=== PATIENT | male | born 1940 | race Caucasian/White ===

== ENCOUNTER 2019-01-27 08:24 | Emergency (ER) | payer MEDICARE, SELFPAY ==
[2019-01-27 08:32] VITALS: BP 157/53; PULSE 88; RESP 18; TEMP 37; O2SAT 97
--- NOTE | 2019-01-27 08:54 | ED.GENADUL_ITS ---
Discharge Plan Disposition Patient Disposition: HOME Discharge Details Chief Complaint: SOB Clinical Impression: Pulmonary cavitary lesion Primary Care Provider: Jeremy Sellers ED Provider: Mohit Foster Home Meds and New Rx's Prescriptions: New levofloxacin [Levaquin] 750 mg tablet 750 mg PO DAILY Qty: 3 RF: 0 Continued diltiazem HCl 240 MG capsule,extended release 24 hr 240 mg PO DAILY Qty: 90 RF: 3 allopurinol 300 MG tablet 300 mg PO DAILY Qty: 90 RF: 3 lovastatin 20 MG tablet 20 mg PO DAILY Qty: 90 RF: 3 levothyroxine [Synthroid] 75 mcg Tablet See Rx Instructions .ROUTE .COMPLEX RF: 0 Discharge Instructions Additional Instructions: CT imaging of your chest revealed a cavitary lesion in the superior segment of the left lower lobe with mild surrounding airspace disease. Differential roberta gnosis includes neoplasm, cavitary pneumonia, granulomatous disease, among others. Radiology recommends PET CT or tissue diagnosis for further assessment. Please take the full course of antibiotic as prescribed. Levaquin was initiated today in the emerge department. Your next dose is tomorrow -this dose was provided to you because pharmacies are closed tomorrow. Continue prescription the following day as prescribed for a total of 5 days. A PPD tuberculosis test was placed today. This test needs to be interpreted by a healthcare provider in the next 48 to 72 hours. Please contact your primary care physician to arrange follow-up. Call on Monday to arrange timely follow-up within the next 48 to 72 hours for reassessment and to have TB testing interpreted. Return to the ER for any worsening or new concerning symptoms. Discharge Data Discharge Date/Time-TO BE ENTERED AT DEPARTURE: 01/27/19 13:22 Medical Decision Making 10:00--78-year-old male with history of chronic kidney disease, hypertension, hyperlipidemia, here with cough and intermittent fever over the past 4 days. Patient is saturating well in no respiratory distress. Concern for pneumonia. Chest x-ray was reviewed and interpreted by radiology: IMPRESSION: Interval development of a nodular somewhat spiculated lesion in the left midlung field with central lucency. Differential diagnosis includes necrotic neoplasm, cavitary pneumonia, granulomatous disease, among others. Plan will be to proceed with CT of the chest. Labs pending to assess renal function. -- Labs reviewed - nondiagnostic. CT chest interpreted by radiology: IMPRESSION: Cavitary lesion in the superior segment of the left lower lobe with mild surrounding air space disease. Differential diagnosis includes neoplasm, cavitary pneumonia, granulomatous disease, among others. Consider PET CT or tissue diagnosis for further assessment All results discussed with patient. Ddx includes PNA vs malignancy vs TD. PPD placed. Plan to start levaquin. Patient to follow-up with PCP. Disposition decision was made weighing the risks and benefits of hospitalization versus outpatient treatment, the risk for further decompensation, and the patient's wishes. The patient was stable and requested discharge. Prior to discharge, my usual and customary return precautions were reviewed with the patient - this included follow-up instructions and reason to return to the emergency department if condition worsens, does not improve as expected, or other new concerns arise. HPI General Mode of arrival: ambulatory . Date/Time Provider Initiated Documentation: 01/27/19 08:47 . Limitations to Documentation: no limitations . Information obtained by: patient . HPI Narrative: 78-year-old male with history of chronic kidney insufficiency, hypertension, hyperlipidemia, here with chief complaint of cough. Patient notes he has had cough over the past 4 days. He said associated fever intermittently as well as intermittent shortness of breath. Patient also notes associated generalized body aches. Cough is been severe, keeping him up at night, without modifiers. Cough nonproductive. No associated chest pain. No leg swelling. Related Data Home Medications Medication Instructions Recorded Confirmed allopurinol 300 mg PO DAILY #90 tablet 03/29/14 01/27/19 diltiazem HCl 240 mg PO DAILY #90 tab 03/29/14 01/27/19 lovastatin 20 mg PO DAILY #90 tablet 03/29/14 01/27/19 levofloxacin [Levaquin] 750 mg PO DAILY #3 tab 01/27/19 levothyroxine [Synthroid] See Rx Instructions .ROUTE .COMPLEX 01/27/19 01/27/19 Previous Rx's Medication Instructions Recorded allopurinol 300 mg PO DAILY #90 tablet 03/29/14 diltiazem HCl 240 mg PO DAILY #90 tab 03/29/14 lovastatin 20 mg PO DAILY #90 tablet 03/29/14 levofloxacin [Levaquin] 750 mg PO DAILY #3 tab 01/27/19 Allergies Allergy/AdvReac Type Severity Reaction Status Date / Time No Known Allergies Allergy Unverified 07/14/17 23:37 General Stated Complaint: SOB COREY: 3 Review of Systems Review of Systems All systems reviewed & are unremarkable except as noted in HPI and below PFSH Social History Smoking/Tobacco Use Status: Never Alcohol Intake: never Drug use: Never Substance use type: does not use Do you feel safe at home: Yes Do you feel safe in your relationship?: Yes Exam Const General: cooperative and no acute distress HENMT Head: normocephalic Mouth: moist mucous membranes Eyes Conjunctivae: normal conjunctivae Sclera: normal sclerae Neck Neck: trachea midline, supple and no JVD Resp Auscultation: rales bilaterally at the base, no rhonchi and no wheezes Cardio Jugular venous pressure: no JVD Rate: regular rate and not tachycardic Rhythm: regular rhythm GI Palpation: soft, not firm, no guarding, no masses, not rigid and nontender Skin General skin exam: no rashes or lesions noted Neuro General: alert, awake, oriented x3 and tone normal Extrem General: no calf tenderness and no edema Psych Appearance: grossly normal Mental Status: mental status grossly normal Speech and Movement: speech and movement normal Course Vital Signs Temperature 37.0 C 01/27/19 08:32 Pulse 88 01/27/19 08:32 Respiratory Rate 18 01/27/19 08:32 Blood Pressure 157/53 H 01/27/19 08:32 Pulse Oximetry 97 01/27/19 08:32 Temperature 37.0 C 01/27/19 08:32 Pulse 88 01/27/19 08:32 Respiratory Rate 18 01/27/19 08:32 Respiratory Effort Non-Labored 01/27/19 08:41 Respiratory Depth Normal 01/27/19 08:41 Respiratory Pattern Normal 01/27/19 08:41 Blood Pressure 157/53 H 01/27/19 08:32 Blood Pressure Position Supine 01/27/19 08:32 Pulse Oximetry 97 01/27/19 08:32 Oxygen Delivery Method Room Air 01/27/19 08:32 Oxygen Flow Rate 0 01/27/19 08:32
--- NOTE | 2019-01-27 09:20 | DI.RAD_ITS ---
SYMPTOMS/DIAGNOSIS: COUGH X 4 DAYS PA AND LATERAL CHEST: Comparison is made with March,. The heart size is normal. The aorta shows calcification. There is a cavitary lesion in the superior segment on the left lower lobe. The lungs are otherwise clear. No effusions are present. There are degenerative changes of the shoulder and thoracic spine. IMPRESSION: Cavitary lesion of the superior segment of the left lower lobe.
--- NOTE | 2019-01-27 09:58 | NUR.NOTE ---
pt resting in bed pending results Nursing Note:
--- NOTE | 2019-01-27 10:01 | DI.VRAD_ITS ---
EXAM: XR Chest, 2 Views EXAM DATE/TIME: 01/27/2019 8:54 AM CLINICAL HISTORY: 78 years old, male; Other: Cough 4 days TECHNIQUE: Imaging protocol: XR of the chest, 2 views. COMPARISON: CR CHEST 2 VIEWS PA,LAT 04/15/2014 6:42 AM FINDINGS: Lungs: There is a nodular somewhat spiculated lesion in the left midlung field which measures 2.9 cm x 2.6 cm and appears to demonstrate a central lucency. This is new since prior. Pleural space: No pleural effusion. No pneumothorax. Heart/Mediastinum: Paratracheal fullness also seen on prior. Diaphragm: Elevated right hemidiaphragm with eventration. Vasculature: Calcified thoracic aorta. Bones/joints: Degenerative changes in thoracic spine. IMPRESSION: Interval development of a nodular somewhat spiculated lesion in the left midlung field with central lucency. Differential diagnosis includes necrotic neoplasm, cavitary pneumonia, granulomatous disease, among others. Dictated and Authenticated by: Catherine Ragsdale MD. Ordering:NANCY Rueda MD
[2019-01-27 10:21] LABS: Abs Immature Grans 0.01 k/cumm (0.0-0.09); Absolute Basophil Count 0.03 k/cumm (0.0-0.2); Absolute Lymphocyte Count 1.19 k/cumm (1.2-3.4); Absolute Monocyte Count 0.77 k/cumm (0.11-0.7); Absolute Neutrophil Count 6.78 k/cumm (1.2-6.7); Basophils % 0.3; Eosinophils % 2.2; HCT 37.9 % (40.0-50.0); Immature Grans % 0.1; Lymphocytes % 13.3; Mean Corp. HGB Concentration 34.3 g/dL (32.0-36.0); Mean Corpuscular Hemoglobin 31.6 pg (27.0-33.0); Mean Platelet Volume 9.2 fL (8.0-11.0); Monocytes % 8.6; Neutrophils % 75.5; Platelet Count 280 x1000/uL (130-400); RBC 4.12 m/cumm (4.50-6.00); RBC Distribution Width 13.1 % (11.8-14.1); White Blood Cell Count 8.98 k/cumm (4.4-10.8)
[2019-01-27 10:37] LABS: ALT 22 U/L (16-63); AST 18 U/L (15-37); Albumin 3.4 g/dL (3.4-5.0); Alkaline Phosphatase 83 U/L (46-116); Anion Gap 11.5 mmol/L (3-11); BUN 26 mg/dL (7-18); Bilirubin, Total 0.8 mg/dL (0.2-1.0); CO2 25.5 mmol/L (21.0-32.0); CREATININE 1.79 mg/dL (0.70-1.30); Calcium 9.2 mg/dL (8.5-10.1); Chloride 102 mmol/L (98-107); Estimated GFR 37.11 (mL/min/1.73m2); Glucose 98 mg/dL (70-100); Potassium 4.2 mmol/L (3.5-5.1); Sodium 139 mmol/L (136-145); Total Protein 7.8 g/dL (6.4-8.2)
[2019-01-27] MEDS: Omnipaque 350 MG/ML 100 ML BTL IJ (11:07)
--- NOTE | 2019-01-27 11:08 | DI.CT_ITS ---
SYMPTOMS/DIAGNOSIS: COUGH, CAVITARY LESION ON X-RAY CHEST CT: Comparison is made with chest x-ray performed earlier the same day, which showed a cavitary lesion in the left lower lobe. There is a 2.9 x 2.6 x 3 cm cavitary lesion in the superior segment of the left lower lobe, abutting the fissure. The exam is mildly limited by respiratory motion. No additional masses, nodules or adenopathy is seen. The findings could represent a cavitary mass versus cavitary pneumonia. No pleural or pericardial effusion is seen. There is coronary artery calcification and mild aortic calcification. The heart size is normal. The liver shows severe fatty infiltration. The visualized portions of the pancreas and adrenals are unremarkable. There is a question of a stone at the upper pole of the left kidney. Degenerative changes are seen in the spine. IMPRESSION: Cavitary lesion in the left lower lobe may represent a cavitary pneumonia versus a cavitary mass. Clinical correlation is recommended.
[2019-01-27] MEDS: Normal Saline 250 ML 500 ML IV (12:00)
--- NOTE | 2019-01-27 12:05 | DI.VRAD_ITS ---
EXAM: CT Chest With Contrast EXAM DATE/TIME: 01/27/2019 10:10 AM CLINICAL HISTORY: 78 years old, male; Patient HX: Cough, cxr w/ cacitary lesion TECHNIQUE: Imaging protocol: Computed tomography of the chest with intravenous contrast. Radiation optimization: All CT scans at this facility use at least one of these dose optimization techniques: automated exposure control; mA and/or kV adjustment per patient size (includes targeted exams where dose is matched to clinical indication); or iterative reconstruction. Contrast material: OMNI 350; Contrast volume: 70 ml; Contrast route: IV; COMPARISON: CR XR CHEST 2V PA LATERAL 01/27/2019 9:04 AM FINDINGS: Lungs: There is a 2.9 cm x 2.6 cm cavitary lesion in the superior left lower lobe with mild surrounding airspace disease. Pleural space: No pneumothorax. No pleural effusion. Heart: Calcified thoracic aorta and coronary arteries. Aorta: No aortic aneurysm. Lymph nodes: No enlarged lymph nodes. Bones/joints: Degenerative changes. Soft tissues: Unremarkable. Liver: Fatty infiltration of the liver. Kidneys and ureters: Tiny density at the upper pole the left kidney may represent stone versus retained contrast. IMPRESSION: Cavitary lesion in the superior segment of the left lower lobe with mild surrounding air space disease. Differential diagnosis includes neoplasm, cavitary pneumonia, granulomatous disease, among others. Consider PET CT or tissue diagnosis for further assessment. Dictated and Authenticated by: Catherine Ragsdale MD. Ordering:NANCY Rueda MD
[2019-01-27] MEDS: levoFLOXacin 250 MG TAB 750 MG PO (12:57)
[2019-01-27] MEDS: levoFLOXacin 500 MG, levoFLOXacin 250 MG 750 MG PO (12:57)
--- NOTE | 2019-01-27 13:15 | NUR.NOTE ---
ppd placed to [facility] Nursing Note:
[2019-01-27 13:21] VITALS: BP 144/72; PULSE 85; RESP 16; TEMP 36.7; O2SAT 98
--- NOTE | 2019-01-27 13:23 | NUR.NOTE ---
dc reviewed with pt able to verblize understanding rx reviewed with pt pt adivsed to f.u with primary md for ppd reading pt able to verblize understanding Nursing Note:
--- NOTE | 2019-01-27 18:55 | NUR.NOTE ---
referral faxed to pcp Dr. Sellers.Nursing Note:
== END 2019-01-27 13:22 | disposition home or self-care (01) ==
PROVIDERS: Emergency Provider Student in an Organized Health Care Education/Training Program; PCP General Practice
DX: R91.1 Solitary pulmonary nodule (principal); N18.9 Chronic kidney disease, unspecified; I12.9 Hypertensive chronic kidney disease with stage 1 through stage 4 chronic kidney disease, or unspecified chronic kidney disease
CPT/HCPCS: 80053; 96360; 99285; 71046; 71260; 85025; J3490

== ENCOUNTER 2019-02-25 00:55 | Outpatient (CLI) | payer MEDICARE, SELFPAY ==
--- NOTE | 2019-02-25 09:14 | DI.RAD_ITS ---
EXAM: XR CHEST 2V PA LATERAL INDICATION: FOLLOW UP CAVITARY LESION LLL. COMPARISON: XR CHEST 2V PA LATERAL from 01/27/2019 TECHNIQUE: 2D digital imaging was performed. FINDINGS: The heart size and pulmonary vasculature are within normal limits. The cavitary lesion seen in the l eft mid lung on the prior examination from 01/27/2019 is no longer visualized. The lungs are clear. No pleural effusion or pneumothorax is identified. Age-appropriate degenerative changes are seen in the spine. IMPRESSION: Interval resolution of the left mid lung opacity. No acute pulmonary process.
== END 2019-02-25 01:15 ==
PROVIDERS: PCP General Practice; Visit Provider General Practice
DX: J98.4 Other disorders of lung (principal)
CPT/HCPCS: 71046

== ENCOUNTER 2019-05-03 07:08 | Outpatient (CLI) | payer MEDICARE, SELFPAY ==
[2019-05-03 09:12] LABS: CREATININE 1.66 mg/dL (0.70-1.30); Estimated GFR 40.48 (mL/min/1.73m2); Potassium 4.7 mmol/L (3.5-5.1)
== END 2019-05-03 07:28 ==
PROVIDERS: PCP General Practice; Visit Provider General Practice
DX: R73.03 Prediabetes (principal); I10 Essential (primary) hypertension
CPT/HCPCS: 36415; 82565; 84132

== ENCOUNTER 2019-11-24 17:47 | Emergency (ER) | payer MEDICARE, SELFPAY ==
[2019-11-24] VITALS (20 sets, daily range): BP systolic 144–192; BP diastolic 46–81; PULSE 62–84; RESP 17–34; TEMP 37.2; O2SAT 92–97
[2019-11-24 18:18] LABS: Abs Immature Grans 0.02 k/cumm (0.0-0.09); Absolute Lymphocyte Count 1.46 k/cumm (1.2-3.4); Absolute Monocyte Count 1.12 k/cumm (0.11-0.7); Basophils % 0.3; Eosinophils % 1.5; HCT 40.4 % (40.0-50.0); HGB 14.2 g/dL (13.5-17.5); Immature Grans % 0.2 %; Lymphocytes % 12.5; Mean Corp. HGB Concentration 35.1 g/dL (32.0-36.0); Mean Corpuscular Hemoglobin 32.3 pg (27.0-33.0); Mean Corpuscular Volume 91.8 fL (80-95); Mean Platelet Volume 9.6 fL (8.0-11.0); Monocytes % 9.6; Neutrophils % 75.9; Platelet Count 212 x1000/uL (130-400); RBC Distribution Width 13.4 % (11.8-14.1); White Blood Cell Count 11.69 k/cumm (4.4-10.8)
[2019-11-24 18:19] LABS: Absolute Basophil Count 0.04 k/cumm (0.0-0.2); Absolute Eosinophil Count 0.18 k/cumm (0.0-0.7); Absolute Neutrophil Count 8.87 k/cumm (1.2-6.7)
[2019-11-24] MEDS: Normal Saline 500 ML IV (18:25)
--- NOTE | 2019-11-24 18:25 | ED.GENADUL_ITS ---
Discharge Plan Disposition Patient Disposition: HOME Condition: Stable Discharge Details Chief Complaint: Abd Prob Clinical Impression: Abdominal pain, Nausea, Constipation, Kidney stone Primary Care Provider: Jace Lott ED Provider: Scott Benites Home Meds and New Rx's Prescriptions: New ondansetron 4 mg tablet,disintegrating 4 mg PO Q8H PRN (Reason: nausea and vomiting) Qty: 30 RF: 0 oxycodone 5 mg tablet 5 mg PO Q6H PRN (Reason: pain) Qty: 12 RF: 0 tamsulosin [Flomax] 0.4 mg capsule 0.4 mg PO DAILY Qty: 14 RF: 0 Continued lisinopril 20 mg tablet 20 mg PO DAILY RF: 0 ibuprofen [Advil] 200 mg tablet 400 mg PO Q6H PRNRF: 0 diltiazem HCl 240 MG capsule,extended release 24 hr 240 mg PO DAILY Qty: 90 RF: 3 allopurinol 300 MG tablet 300 mg PO DAILY Qty: 90 RF: 3 lovastatin 20 MG tablet 20 mg PO DAILY Qty: 90 RF: 3 Discharge Instructions Instructions: Kidney Stones (ED) Additional Instructions: I placed you on our follow up list to see urology for your kidney stones you can take 1000mg tylenol and 600mg ibuprofen every 6 hours for pain as needed if you feel more ill, have fevers, severe uncontrolled pain or persistent vomit return to the emergency department Medical Decision Making <Joy Tidwell DO - Last Filed: 11/24/19 20:18> 1805 -- 79-year-old male with history of morbid obesity, metabolic syndrome, hyperlipidemia, hypertension presents with nausea, dry heaving, constipation and lower abdominal pain x2 days. He has right upper quadrant, lower abdomen, worse in left lower quadrant abdominal tenderness. No CVA tenderness. EKG done on arrival due to complaint of not feeling well and notes a rate of 83, sinus, right bundle branch block and left anterior fascicular block but no acute ST ischemic changes. Differential diagnosis includes gastroenteritis, colitis, diverticulitis, kidney stone, appendicitis, small bowel obstruction. History and presentation not consistent with ACS. Will place an IV, bolus IV fluids, screening labs, CT abdomen and pelvis and give a dose of morphine and Zofran and reassess. 1919 --labs reviewed. White blood cell count 11.69. Creatinine 3.01 which is worse compared to recent baseline. GFR 20. Lipase and liver enzymes within normal limits. Will cancel CT with IV contrast and change to oral contrast. 1999 --Case endorsed to Dr. Benites to follow-up on CT imaging and final disposition. Lab Data Lab results reviewed: Yes I reviewed the patient's lab results. ECG Data Attestation: I personally reviewed and interpreted this ECG (s) as follows: Interpretation: Rate of 83, sinus, right bundle branch block, left anterior fascicular block. Right bundle branch block appears new compared to previous EKG. No acute ST elevation or depression. TX 184. QTc 439. QRS 136. <Scott Benites MD - Last Filed: 11/24/19 21:18> CT shows 9mm kidney stone and he states he has history of kidney stones. His pain is well controlled and feels much better at this time and feels comfortable with d/c. Will d/c and have him f/u with urology robert and return precautions given Imaging Data Radiologic Study: Attestation: I personally reviewed and interpreted this imaging study as follows: Imaging: CT Scan Radiologist's impression: IMPRESSION: 1. Mild right obstructive uropathy caused by a 9 mm stone impacted in the proximal right ureter. 2. Other chronic/incidental findings as detailed above. Lab Data Lab results reviewed: Yes I reviewed the patient's lab results. HPI <Joy Tidwell DO - Last Filed: 11/24/19 20:18> General Mode of arrival: wheelchair . Date/Time Provider Initiated Documentation: 11/24/19 17:50 . Limitations to Documentation: no limitations . Information obtained by: patient . HPI Narrative: Patient is a 79-year-old male with a history of hypertension, hyperlipidemia, BPH, metabolic syndrome, morbid obesity who presents with nausea, dry heaving, constipation and abdominal pain since yesterday. Patient states his last bowel movement was 2 days ago which is unusual for him. He states he had multiple episodes of dry heaving today but no actual vomiting. He states his abdominal pain is intermittent, sharp, located in the lower abdomen and currently 5/10. He also admits to right-sided lower back pain which she states is tender to palpation. He denies any fever, cough, chest pain, shortness of breath, urinary symptoms, recent travel or recent known sick contacts. He states he took milk of magnesia, Tylenol and ibuprofen without relief. Related Data Home Medications Medication Instructions Recorded Confirmed allopurinol 300 mg PO DAILY #90 tab 03/29/14 11/24/19 diltiazem HCl 240 mg PO DAILY #90 tab 03/29/14 11/24/19 lovastatin 20 mg PO DAILY #90 tab 03/29/14 11/24/19 ibuprofen 200 mg tablet 400 mg PO Q6H PRN tab 06/27/19 11/24/19 lisinopril 20 mg tablet 20 mg PO DAILY 06/27/19 11/24/19 ondansetron 4 mg PO Q8H PRN #30 tab 11/24/19 oxycodone 5 mg PO Q6H PRN #12 tab 11/24/19 tamsulosin [Flomax] 0.4 mg PO DAILY #14 cap 11/24/19 Previous Rx's Medication Instructions Recorded allopurinol 300 mg PO DAILY #90 tab 03/29/14 diltiazem HCl 240 mg PO DAILY #90 tab 03/29/14 lovastatin 20 mg PO DAILY #90 tab 03/29/14 ondansetron 4 mg PO Q8H PRN #30 tab 11/24/19 oxycodone 5 mg PO Q6H PRN #12 tab 11/24/19 tamsulosin [Flomax] 0.4 mg PO DAILY #14 cap 11/24/19 Allergies Allergy/AdvReac Type Severity Reaction Status Date / Time No Known Allergies Allergy Verified 11/24/19 18:03 General Stated Complaint: GenMedical COREY: 2 Review of Systems <Joy Tidwell DO - Last Filed: 11/24/19 20:18> All systems reviewed & are unremarkable except as noted in HPI and below Constitutional Constitutional: Reports as per HPI, Denies chills and Denies fever(s) Eyes Eyes: Denies blurry vision ENT Ears, Nose, Mouth, and Throat: Denies dizziness, Denies sore throat and Denies throat swelling Cardiovascular Cardiovascular: Denies chest pain and Denies dyspnea Respiratory Respiratory: Denies cough and Denies dyspnea Gastrointestinal Gastrointestinal: Denies abdominal pain, Denies diarrhea and Denies vomiting Genitourinary Genitourinary: Denies hematuria and Denies dysuria Musculoskeletal Musculoskeletal: Denies back pain and Denies numbness Integumentary/Breasts Skin/Breast: Denies lesions and Denies rash Neurologic Neurologic: Denies dizziness, Denies localized weakness and Denies numbness Allergic/Immunologic Allergic/Immunologic: Denies throat swelling PFSH <Joy Tidwell DO - Last Filed: 11/24/19 20:18> Family History (Updated 06/27/19 @ 09:10 by Priti Oropeza LPN) Mother , of hemorrhage but unknown No problems noted. Father , of heart issues No problems noted. Social History (Updated 06/27/19 @ 09:11 by Priti Oropeza LPN) Smoking/Tobacco Use Status: Never Alcohol Intake: former Drug use: Never Substance use type: does not use Adopted: No Household members: spouse Housing: house Number of Children: 1 Communication Needs: Corrective Lenses Do you need help understanding health information?: Never current occupation: Retired Sexually active: Yes Do you think of yourself as: straight/heterosexual Current gender identity: male What is your relationship status?: Panel score (0-1 are the most socially isolated patients): 1 What type of physical activity do you participate in: none Seatbelt use: always Drive intox or ride w/intox 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 Working smoke detector in home: Yes Carbon monox detector in home: Yes Do you feel safe at home: Yes Do you feel safe in your relationship?: Yes Exam <Joy Tidwell DO - Last Filed: 11/24/19 20:18> Const General: cooperative and no acute distress Orientation: alert, awake and oriented x3 HENMT Head: normal to inspection Face and sinus: normal facial exam Eyes General: appearance normal, both eyes and all related structures Pupils: PERRL EOM: EOM intact bilaterally Neck Neck: normal visual inspection and No submandibular swelling Lymphatic: no lymphadenopathy noted Chest Chest: normal inspection of the chest and no tenderness Resp Effort & Inspection: normal respiratory effort and able to speak in complete sentences Auscultation: clear to auscultation bilaterally Cardio Rate: regular rate Rhythm: regular rhythm GI Inspection: obesity Palpation: soft, not firm, not rigid and tender (Across lower abdomen, worse in left lower quadrant) in the RUQ Auscultation: hypoactive bowel sounds Male General Exam: Yes normal external exam Scrotum: scrotum normal Testes: normal Back/Spine/Pelvis Back: no CVA tenderness Thoracic/Lumbar Spine: paraspinal tenderness (Right lumbar) and lumbar spinal tenderness Skin General skin exam: no rashes or lesions noted Neuro General: patient alert, patient awake and patient oriented x3 Cognition: normal cognition Speech: speech normal Motor: muscle tone normal throughout Sensory Exam: no sensory deficits noted Extrem General: normal to inspection, full ROM, capillary refill normal, no calf tenderness bilaterally and no edema Psych Appearance: grossly normal Mental Status: mental status grossly normal Speech and Movement: speech and movement normal Affect: normal affect Course <Joy Tidwell, DO - Last Filed: 11/24/19 20:18> Vital Signs Vital signs: Vital Signs Temperature 99.0 F 11/24/19 17:58 Pulse 84 11/24/19 17:58 Respiratory Rate 18 11/24/19 17:58 Blood Pressure 159/81 H 11/24/19 17:58 Pulse Oximetry 96 11/24/19 17:58 Temperature 99.0 F 11/24/19 17:58 Temperature Source Skin 11/24/19 17:58 Pulse 84 11/24/19 17:58 Respiratory Rate 18 11/24/19 17:58 Respiratory Effort Non-Labored 11/24/19 18:03 Blood Pressure 159/81 H 11/24/19 17:58 Blood Pressure Position Supine 11/24/19 17:58 Pulse Oximetry 96 11/24/19 17:58 Oxygen Delivery Method Room Air 11/24/19 17:58 Oxygen Flow Rate 0 11/24/19 17:58 Pain Level 0 11/24/19 17:58 Lab/Test Results Lab/Test Results: Laboratory Tests Range/Units 11/24/19 18:10 WBC (4.4-10.8) k/cumm 11.69 H RBC (4.50-6.00) m/cumm 4.40 L Hgb (13.5-17.5) g/dL 14.2 Hct (40.0-50.0) % 40.4 MCV (80-95) fL 91.8 MCH (27.0-33.0) pg 32.3 MCHC (32.0-36.0) g/dL 35.1 RDW (11.8-14.1) % 13.4 Plt Count (130-400) x1000/uL 212 MPV (8.0-11.0) fL 9.6 Immature Gran % % 0.2 Neutrophils % 75.9 Lymphocytes % 12.5 Monocytes % 9.6 Eosinophils % 1.5 Basophils % 0.3 Absolute Neutrophils (1.2-6.7) k/cumm 8.87 H Absolute Lymphocytes (1.2-3.4) k/cumm 1.46 Absolute Monocytes (0.11-0.7) k/cumm 1.12 H Absolute Eosinophils (0.0-0.7) k/cumm 0.18 Absolute Basophils (0.0-0.2) k/cumm 0.04 Sign Out <Joy Tidwell DO - Last Filed: 11/24/19 20:18> Sign Out Data: Sign Out Comment: Follow-up on CT imaging and final disposition. Last updated by Joy Tidwell DO at 11/24/19 19:55
[2019-11-24] MEDS: Ondansetron 4 MG/2 ML VIAL IVP (18:30)
[2019-11-24 18:31] LABS: PTT Activated 25.4 sec (21.0-31.4); Prothrombin Time 10.4 sec (9.3-11.0)
[2019-11-24 18:35] LABS: ALT 22 U/L (16-63); AST 18 U/L (15-37); Albumin 3.8 g/dL (3.4-5.0); Alkaline Phosphatase 64 U/L (46-116); Anion Gap 7.2 mmol/L (3-11); BUN 30 mg/dL (7-18); Bilirubin, Total 0.9 mg/dL (0.2-1.0); CO2 27.8 mmol/L (21.0-32.0); CREATININE 3.01 mg/dL (0.70-1.30); Calcium 9.4 mg/dL (8.5-10.1); Chloride 101 mmol/L (98-107); Estimated GFR 20.31 (mL/min/1.73m2); Glucose 110 mg/dL (74-106); Magnesium 2.1 mg/dL (1.8-2.4); Potassium 4.3 mmol/L (3.5-5.1); Sodium 136 mmol/L (136-145); Total Protein 7.6 g/dL (6.4-8.2)
[2019-11-24 18:36] LABS: Lipase 71 U/L (73-393); Troponin I < 0.05 ng/mL (<0.06)
--- NOTE | 2019-11-24 18:45 | DI.CT_ITS ---
EXAM: CT ABDOMEN PELVIS WO CLINICAL HISTORY: dry heaving, lower abd pain. TECHNIQUE: Imaging Protocol: Axial computed tomography images with coronal and sagittal reformatted images were created and reviewed. COMPARISON: CT ABD PELVIS WO CONTRAST from 12/10/2016 FINDINGS: ABDOMEN: Lung Bases: Mild scarring or atelectasis. Liver: Normal density. No measurable mass. Gallbladder and biliary tract: No radiodense calculus or biliary ductal dilation. Pancreas: Normal density, no abnormal calcifications or inflammatory process. Spleen: Normal. Kidneys: Normal size, contour and axis.Bilateral nephrolithiasis. 9 mm stone in the proximal right u reter causing mild hydronephrosis. Hypodense lesions seen in the right kidney with layering milk of calcium. These may be further evaluated with an ultrasound in a nonemergent setting. Adrenal glands: No mass is seen. Lymph nodes: Within normal limits. Abdominal Aorta: Abdominal portion non-dilated. Atherosclerosis. PELVIS: Bladder:Symmetric distention, no gross wall thickening. Bowel: No obstruction or bowel wall thickening. No evidence of acute appendicitis. Colonic diverticu losis but no evidence of acute diverticulitis. Peritoneal cavity: No ascites, collection or mesenteric inflammatory response Reproductive organs: Mildly enlarged prostate gland. 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 Degenerative changes in the sp ine. Soft Tissues: Bilateral fat containing inguinal hernia. IMPRESSION: 9 mm proximal right ureteral calculi causing mild hydronephrosis. RADIATION DOSE DELIVERED: Total DLP DATA REPOSITORY: All CT scans at this facility are submitted to the National Radiology Data Registry (NRDR) Dose Index Registry (DIR) with the [employer] (ACR). RADIATION OPTIMIZATION: All CT scans at this facility use at least one of these dose optimization te chniques: automated exposure control; mA and/or kV adjustment per patient size (includes targeted exa ms where dose is matched to clinical indication); or iterative reconstruction.
--- NOTE | 2019-11-24 20:53 | DI.VRAD_ITS ---
PROCEDURE INFORMATION: Exam: CT Abdomen And Pelvis Without Contrast Exam date and time: 11/24/2019 8:32 PM Age: 79 years old Clinical indication: Other: Dry heaving, lower abd pain; Patient HX: Dry heaving 2+ days TECHNIQUE: Imaging protocol: Computed tomography of the abdomen and pelvis without contrast. Radiation optimization: All CT scans at this facility use at least one of these dose optimization techniques: automated exposure control; mA and/or kV adjustment per patient size (includes targeted exams where dose is matched to clinical indication); or iterative reconstruction. COMPARISON: CT ABD PELVIS WO CONTRAST 12/10/2016 1:10 AM FINDINGS: Lungs: Scarring and atelectasis at the lung bases without acute findings. Mediastinal space: A moderate hiatal hernia is present. Liver: Normal. No mass. Gallbladder and bile ducts: Normal. No calcified stones. No ductal dilation. Pancreas: Normal. No ductal dilation. Spleen: Normal. No splenomegaly. Adrenals: Normal. No mass. Kidneys and ureters: 9 mm by 7 mm stone impacted in the proximal right ureter. There is mild right hydronephrosis. There is mild right hydroureter. There are multiple right renal collecting system calcifications. There are multiple left renal collecting system calcifications. No evidence of left obstructive uropathy. Right renal hypodense lesions, some of which demonstrate layering milk calculi are calcifications are incompletely evaluated in this examination and correlation with ultrasound is recommended in a nonemergent setting. Stomach and bowel: No bowel wall thickening, obstruction, or other acute pathology. Diffuse colonic diverticulosis is present. There is moderately excessive colonic stool content. Appendix: No evidence of appendicitis. Intraperitoneal space: Unremarkable. No free air. No significant fluid collection. Vasculature: The vasculature demonstrates diffuse moderate atherosclerotic calcification. Lymph nodes: Unremarkable. No enlarged lymph nodes. Bladder: Unremarkable as visualized. Reproductive: The prostate demonstrates moderate nonspecific enlargement. The seminal vesicles are normal. Bones/joints: Grade 1 anterolisthesis of L5 in relation to S1, due to bilateral pars interarticularis defects. No acute skeletal pathology. Moderate multilevel degenerative changes of the spine, as manifested by multilevel anterior osteophytes and multilevel decrease in intervertebral disc space. Soft tissues: Small bilateral fat containing inguinal hernias. IMPRESSION: 1. Mild right obstructive uropathy caused by a 9 mm stone impacted in the proximal right ureter. 2. Other chronic/incidental findings as detailed above. Dictated and Authenticated by: Kevin Doe MD. Ordering:TRUDY Hamilton MD
--- NOTE | 2019-11-25 00:32 | NUR.NOTE ---
REFERRAL FAXED TO UROLOGY FOR FOLLOW UP CARE Nursing Note:
== END 2019-11-24 21:40 | disposition home or self-care (01) ==
LOC: ER 21:16
PROVIDERS: Physician Assistant; Emergency Provider Emergency Medicine; PCP Family Medicine
DX: N13.2 Hydronephrosis with renal and ureteral calculous obstruction (principal); I45.2 Bifascicular block; R11.0 Nausea; K59.00 Constipation, unspecified; R94.4 Abnormal results of kidney function studies; I10 Essential (primary) hypertension; Z87.442 Personal history of urinary calculi
CPT/HCPCS: 36415; 80053; 83690; 93005; 96361; 96374; 96375; 99285; 74176; 83735; 84484; 85025; 85610; 85730; 93010; J2405

== ENCOUNTER → 2019-12-02 13:24 | Outpatient (BNVA) | payer MEDICARE, SELFPAY | PROVIDERS: PCP Family Medicine; Referring Provider Family Medicine; Visit Provider Nurse Practitioner Gerontology | DX: N20.0 Calculus of kidney (principal); I12.9 Hypertensive chronic kidney disease with stage 1 through stage 4 chronic kidney disease, or unspecified chronic kidney disease; N18.9 Chronic kidney disease, unspecified | CPT/HCPCS: 99204; 99215 ==

== ENCOUNTER 2019-12-09 09:10 | Outpatient (CLI) | payer MEDICARE, SELFPAY ==
[2019-12-11 14:51] LABS: COVID-19 RT-PCR Result NEGATIVE (Negative)
== END 2019-12-09 09:30 ==
PROVIDERS: PCP Family Medicine; Visit Provider Urology
DX: Z03.818 Encounter for observation for suspected exposure to other biological agents ruled out (principal); Z01.818 Encounter for other preprocedural examination
CPT/HCPCS: U0003

== ENCOUNTER 2019-12-12 06:15 | Day surgery (SDC) | payer MEDICARE, SELFPAY ==
[2019-12-12 06:34] VITALS: BP 133/67; PULSE 65; RESP 17; TEMP 36.8; O2SAT 96
--- NOTE | 2019-12-12 06:39 | W.PM.HP.N ---
Date of service: 12/12/19 Time of Service: 06:39 Assessment and Plan Assessment and plan (1) Calculus of proximal right ureter: Status: Acute Assessment and plan: We will move ahead with cystoscopy, right retrograde pyelogram, ureteroscopy with stone manipulation. History of Present Illness History of Present Illness Chief Complaint: Right ureteral stone Narrative: Mr. Horton is a 79-year-old male that was seen in the emergency room due to right flank pain. He has been referred here to discuss his 9 mm stone that is in the right ureter causing mild hydronephrosis. He was seen in the emergency room approximately a week ago. He states that he is not having any discomfort at this point. he has only had ywo episodes of pain since his ER visit. He denies hematuria, change in frequency or urgency, current flank pain, nausea, or vomiting. Reports he had another kidney stone approximately 10 years ago but does not remember its composition. He has no history of parathyroidism. He does have an extensive history of gout and is on allopurinol. Review of Systems Narrative: No fevers or chills No vision change or dysphasia No diabetes or thyroid dysfunction No shortness of breath, cough or hemoptysis No chest pain or palpitations. Has been light headed with standing since starting Flomax. Hx GERD. No nausea, vomiting, hepatitis, ulcers, jaundice, diarrhea or constipation No seizures, strokes or peripheral neuropathy No bleeding disorders or anemia Hx gout and arthralgia [facility] Medical History (Updated 12/12/19 @ 06:41 by Ananth Golden MD) BPH (benign prostatic hyperplasia) (Chronic) Probable Chronic kidney insufficiency (Chronic) a. Since at least 1998 b. baseline creatinine 1.9 Gout (Chronic) Heart murmur (Acute) I/ Systolic Heart Murmur- First noted 05/04 Per pt. states he has had no issues regarding this, F/U up with PCP Dr. Lott Hx of fracture of ankle (Acute) R ankle (mert placed) Hyperlipidemia (Chronic) Hypertension (Chronic) Metabolic syndrome (Chronic) a. high triglycerides b. low HDL Social History Smoking/Tobacco Use Status: Never Alcohol Intake: current Alcohol Intake frequency: holidays/special occasions only Alcohol type: beer and hard liquor Drug use: Never Substance use type: does not use Adopted: No Household members: spouse Housing: house Number of Children: 1 Communication Needs: Corrective Lenses Do you need help understanding health information?: Never current occupation: Retired Sexually active: Yes Do you think of yourself as: straight/heterosexual Current gender identity: male What is your relationship status?: Panel score (0-1 are the most socially isolated patients): 1 What type of physical activity do you participate in: none Seatbelt use: always Drive intox or ride 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 Working smoke detector in home: Yes Carbon monox detector in home: Yes Do you feel safe at home: Yes Do you feel safe in your relationship?: Yes Meds Home Medications and Allergies Home Medications Medication Instructions Recorded Confirmed Type allopurinol 300 mg PO DAILY #90 tab 03/29/14 12/12/19 Rx diltiazem HCl 240 mg PO DAILY #90 tab 03/29/14 12/12/19 Rx lovastatin 20 mg PO DAILY #90 tab 03/29/14 12/12/19 Rx ibuprofen 200 mg tablet 400 mg PO Q6H PRN tab 06/27/19 12/12/19 History lisinopril 20 mg tablet 20 mg PO DAILY 06/27/19 12/12/19 History ondansetron 4 mg PO Q8H PRN #30 tab 11/24/19 12/12/19 Rx oxycodone 5 mg PO Q6H PRN #12 tab 11/24/19 12/12/19 Rx tamsulosin [Flomax] 0.4 mg PO DAILY #14 cap 11/24/19 12/12/19 Rx Allergies Allergy/AdvReac Type Severity Reaction Status Date / Time No Known Allergies Allergy Verified 12/12/19 06:28 Exam Narrative Exam Narrative: I reviewed his previous CT scan. At the time his CT was done, there was a mid to proximal right ureteral stone along with multiple nonobstructing bilateral kidney stones. His previous stone from 2017 was 100% calcium oxalate monohydrate. Const General: cooperative, comfortable and no acute distress Neck Neck: supple and other (thick) Resp Effort & Inspection: normal respiratory effort Auscultation: clear to auscultation bilaterally Cardio Rate: regular rate Rhythm: regular rhythm GI Inspection: obesity Palpation: soft and no masses COVID-19 Screening Have you,or household,traveled outside [place] in last 14 days?: No Had IN PERSON contact w/suspected or confirmed C-19 person: No
[2019-12-12] MEDS: Lactated Ringers 1,000 ML 80 ML IV (06:58)
[2019-12-12] MEDS: ceFAZolin 1 GM/50 ML BAG IVPB (07:26)
[2019-12-12] MEDS: Lidocaine 2% Jelly 6 ML SYR (07:46)
[2019-12-12] MEDS: Omnipaque 300 MG/ML 50 ML BTL (07:47)
--- NOTE | 2019-12-12 08:19 | DI.RAD_ITS ---
EXAM: XR RETROGRADE IN OR INDICATION: Calculus of proximal right ureter. COMPARISON: No exams were available for comparison TECHNIQUE: 2D digital imaging was performed. FINDINGS: C-arm fluoroscopy was utilized by Dr. Cameron during retrograde catheterization right ureter. Hard c opy shows stent placement in the right ureter. Fluoro time, 22 seconds. IMPRESSION: DATA REPOSITORY: RADIATION DOSE DELIVERED:
--- NOTE | 2019-12-12 08:22 | PDOC.DSDIS_ITS ---
Discharge Plan Disposition Patient Disposition: HOME Condition: Stable Discharge Details Reason For Visit: ureteral stone Attending Provider: Ananth Golden Primary Care Provider: Jace Lott [place] Meds and New Rx's Prescriptions: No Action lisinopril 20 mg tablet 20 mg PO DAILY RF: 0 ibuprofen [Advil] 200 mg tablet 400 mg PO Q6H PRNRF: 0 diltiazem HCl 240 MG capsule,extended release 24 hr 240 mg PO DAILY Qty: 90 RF: 3 allopurinol 300 MG tablet 300 mg PO DAILY Qty: 90 RF: 3 lovastatin 20 MG tablet 20 mg PO DAILY Qty: 90 RF: 3 ondansetron 4 mg tablet,disintegrating 4 mg PO Q8H PRN (Reason: nausea and vomiting) Qty: 30 RF: 0 oxycodone 5 mg tablet 5 mg PO Q6H PRN (Reason: pain) Qty: 12 RF: 0 tamsulosin [Flomax] 0.4 mg capsule 0.4 mg PO DAILY Qty: 14 RF: 0 Discharge Instructions Additional Instructions: No need to strain urine Follow up early next week for stent removal (tell my office there is a string on the stent) Follow up appt with me in 4 to 6 weeks with renal ultrasound on same day May stop Tamsulosin Activity:: Activity as Tolerated Shower/Bathe:: 24 hours Diet:: As Tolerated Discharge Orders Discharge Orders: Discharge Order (Routine); Ordered 12/12/19 Ordered By: Ananth Golden DS: Diagnosis Discharge Diagnosis (1) Calculus of proximal right ureter: Status: Acute
--- NOTE | 2019-12-12 08:27 | ROE_ITS ---
Date of service: 12/12/19 Time of Service: 08:27 Operative Note Operative Note DATE OF PROCEDURE: 12/12/19 PRE-OP DIAGNOSIS: Right proximal ureteral stone POST-OP DIAGNOSIS: other (Right distal ureteral stone) Right distal ureteral stone PROCEDURE: Cystoscopy, right retrograde pyelogram, right ureteroscopy with holmium laser lithotripsy of stone, stone extraction, insert right ureteral stent SURGEON: Ananth Golden ANESTHESIA: other (General by LMA) ESTIMATED BLOOD LOSS: 11 PATHOLOGY: other (Stone for chemical analysis) Patient was transported to: PACU Patient's condition: stable Implants: 4.8 Macedonian by 22 to 30 cm right ureteral stent Indications: This is a 79-year-old gentleman with a past history of kidney stones. He presented to the emergency room recently with right flank and back pain. He was found to have a right proximal ureteral stone. He has only had occasional symptoms, but he has not passed a stone with conservative management. He presents now for stone manipulation Findings: Stone migrated to right distal ureter Procedure Description: The patient was brought to the operating room on 12/12/2019. He was given preoperative IV antibiotics. After successful induction of general anesthesia, he was placed in the dorsal lithotomy position. His genitalia was prepped and draped. 2% Xylocaine jelly was instilled into the urethra to act as a local anesthetic. A 22 Macedonian rigid cystoscope was passed through the urethra into the bladder. The urethra and bladder were inspected with the 30 degree lens. The pendulous, bulbous and membranous urethra was all appeared normal with no strictures. The prostatic urethra showed some lateral lobe enlargement but no prominent median lobe. The bladder neck was entered and the bladder mucosa was inspected. The right ureteral orifice was identified. The orifice appeared normal in location and configuration. We used a 6 Macedonian access catheter to engage the right ureteral orifice. We injected Omnipaque through the access catheter under fluoroscopic guidance. This allowed us to outline a filling defect now present in the distal right ureter. I then passed a guidewire through the access catheter and maneuvered the wire up the remainder of the ureter. We removed the cystoscope and access catheter leaving the wire in place. The semirigid ureteroscope was then passed through the urethra into the bladder. The scope was maneuvered into the right ureteral orifice. There the lumen of the distal ureter, we visualized a stone. We used a 3 65 ?m holmium laser fiber to fragment the stone. We used a power setting of 200 and a rate of 8. Once the stone was fractured and 2, we were able to grasp the individual fragments and a Ayanna stone basket. Each fragment was sent to pathology for permanent section. When the scope was reintroduced, and there did appear to be some trauma to the ureter just distal to the location of the stone. We then elected to place a ureteral stent. We chose a 4.8 Macedonian variable length stent and advanced it o nathalie the indwelling wire. The proximal end of the stent was curled in the collecting system and the distal end was curled within the bladder. The safety string was left in place and brought through the urethra. The string was then taped to the dorsum of the penis. We will plan on removing the stent in 3 to 5 days. The patient tolerated this procedure well with no complications.
[2019-12-12 08:29] VITALS: BP 117/54; PULSE 72; RESP 25; TEMP 36.6; O2SAT 98
[2019-12-12 08:34] VITALS: BP 126/62; PULSE 68; RESP 22; TEMP 36.6; O2SAT 95
[2019-12-12 08:39] VITALS: BP 126/62; PULSE 68; RESP 19; TEMP 36.6; O2SAT 95
[2019-12-12 08:54] VITALS: BP 130/55; PULSE 63; RESP 18; TEMP 36.6; O2SAT 94
--- NOTE | 2019-12-12 09:03 | W.PM.DSUDISC ---
Discharge Plan Disposition Patient Disposition: HOME Condition: Stable Discharge Details Reason For Visit: ureteral stone Attending Provider: Ananth Golden Primary Care Provider: Jace Lott Home Meds and New Rx's Prescriptions: New phenazopyridine [Pyridium] 200 mg tablet 200 mg PO TID PRN (Reason: pain/spasm) Qty: 10 RF: 0 No Action lisinopril 20 mg tablet 20 mg PO DAILY RF: 0 ibuprofen [Advil] 200 mg tablet 400 mg PO Q6H PRNRF: 0 diltiazem HCl 240 MG capsule,extended release 24 hr 240 mg PO DAILY Qty: 90 RF: 3 allopurinol 300 MG tablet 300 mg PO DAILY Qty: 90 RF: 3 lovastatin 20 MG tablet 20 mg PO DAILY Qty: 90 RF: 3 ondansetron 4 mg tablet,disintegrating 4 mg PO Q8H PRN (Reason: nausea and vomiting) Qty: 30 RF: 0 oxycodone 5 mg tablet 5 mg PO Q6H PRN (Reason: pain) Qty: 12 RF: 0 tamsulosin [Flomax] 0.4 mg capsule 0.4 mg PO DAILY Qty: 14 RF: 0 Discharge Instructions Additional Instructions: No need to strain urine Follow up early next week for stent removal (tell my office there is a string on the stent) Follow up appt with me in 4 to 6 weeks with renal ultrasound on same day May stop Tamsulosin Stand Alone Forms: [facility] Activity:: Activity as Tolerated Shower/Bathe:: 24 hours Diet:: As Tolerated Discharge Orders Discharge Orders: Discharge Order (Routine); Ordered 12/12/19 Ordered By: Ananth Golden Discharge Data Discharge Date/Time-TO BE ENTERED AT DEPARTURE: 12/12/19 10:09 Discharge Comment: Pt belongings sent home with Pt. DS: Diagnosis Discharge Diagnosis (1) Calculus of proximal right ureter: Status: Acute
[2019-12-12] MEDS: Phenazopyridine 200 MG TAB PO (09:16)
[2019-12-12 09:45] VITALS: BP 142/73; PULSE 63; RESP 16; TEMP 35.9; O2SAT 96
[2019-12-19 00:04] LABS: Source: Right Ureter
== END 2019-12-12 10:09 | disposition home or self-care (01) ==
PROVIDERS: PCP Family Medicine; Visit Provider Urology
PROC: (CPT 52356; principal; 2019-12-12 07:30)
DX: N20.1 Calculus of ureter (principal); Z87.442 Personal history of urinary calculi
CPT/HCPCS: 52356; NC; 74420; 82365; J0690; J1100; J2001; J2405; Q9967

== ENCOUNTER → 2019-12-17 08:04 | Outpatient (BNVA) | payer MEDICARE, SELFPAY | PROVIDERS: PCP Family Medicine; Referring Provider Family Medicine; Visit Provider Nurse Practitioner Gerontology | DX: N20.1 Calculus of ureter (principal); I10 Essential (primary) hypertension | CPT/HCPCS: 99213 ==

== ENCOUNTER 2020-01-06 01:54 | Outpatient (CLI) | payer MEDICARE, SELFPAY ==
--- NOTE | 2020-01-06 07:15 | DI.US_ITS ---
EXAM: US RENAL CLINICAL HISTORY: r/o hydronephrosis after ureteroscopy,CALCULUS PROXIMAL RT URETER,N20.1. TECHNIQUE: Loving scale, color and spectral Doppler were used. COMPARISON: CT ABD PELVIS WO CONTRAST from 12/10/[address] ABDOMEN PELVIS WO from 11/24/2019 FINDINGS: Renal size in cm: Right: 10.7. Left: 10.3. Echogenicity: Normal. Hydronephrosis: No. Cyst or mass: 1.8 cm simple cyst in the superior pole of the left kidney. Nephrolithiasis: Bilateral nephrolithiasis. Other findings: None. Bladder:Incompletely distended. This limits evaluation. No gross abnormality. Ureteral jets: Right: Visualized and unremarkable. Left: Visualized and unremarkable. Prevoid vol:70 cc Renal color flow: Symmetric and within normal limits. IMPRESSION: 1. Bilateral nephrolithiasis. 2. No evidence of hydronephrosis. DATA REPOSITORY:
== END 2020-01-06 02:14 ==
PROVIDERS: PCP Family Medicine; Visit Provider Urology
DX: N20.2 Calculus of kidney with calculus of ureter (principal)
CPT/HCPCS: 76770

== ENCOUNTER → 2020-01-07 09:21 | Outpatient (BNVA) | payer MEDICARE, SELFPAY | PROVIDERS: PCP Family Medicine; Referring Provider Family Medicine; Visit Provider Nurse Practitioner Gerontology | DX: N20.0 Calculus of kidney (principal); I12.9 Hypertensive chronic kidney disease with stage 1 through stage 4 chronic kidney disease, or unspecified chronic kidney disease; N18.9 Chronic kidney disease, unspecified | CPT/HCPCS: 99213 ==

== ENCOUNTER 2020-01-13 02:29 | Outpatient (CLI) | payer MEDICARE, SELFPAY ==
[2020-01-13 09:29] LABS: Anion Gap 11.4 mmol/L (3-11); BUN 19 mg/dL (7-18); CO2 25.6 mmol/L (21.0-32.0); CREATININE 1.65 mg/dL (0.70-1.30); Calcium 9.4 mg/dL (8.5-10.1); Chloride 104 mmol/L (98-107); Estimated GFR 40.65 (mL/min/1.73m2); Glucose 97 mg/dL (74-106); Potassium 4.3 mmol/L (3.5-5.1); Sodium 141 mmol/L (136-145)
== END 2020-01-13 02:49 ==
PROVIDERS: PCP Family Medicine; Visit Provider Family Medicine
DX: N18.9 Chronic kidney disease, unspecified (principal)
CPT/HCPCS: 36415; 80048

== ENCOUNTER 2021-01-13 00:56 | Outpatient (CLI) | payer MEDICARE, SELFPAY ==
--- NOTE | 2021-01-13 08:15 | DI.RAD_ITS ---
Exam(s) XR ABDOMEN FLAT PLATE EXAM: XR ABDOMEN FLAT PLATE CLINICAL HISTORY: b/l kidney stone monitoring,PERSONAL H/O URINARY CALCULI,Z87.442. TECHNIQUE: 2D digital imaging was performed. COMPARISON: CT CT ABDOMEN PELVIS WO from 11/24/2019 FINDINGS: The bowel gas pattern is nonspecific in the supine position. The right side there are 3 similar appearing calcifications, each measuring approximately 5 millimete rs projected over mid and inferior aspect of the right kidney.. These were shown to be within the ri ght kidney on CT scan of 11/24/2019. At that time there was also a calculus in the right ureter. Th ere is no radiopaque calculus seen in the right ureter at this time on these plain film images. No o sseous lesions. IMPRESSION: Right nephrolithiasis. Nonspecific bowel gas pattern DATA REPOSITORY: RADIATION DOSE DELIVERED:
== END 2021-01-13 01:16 ==
PROVIDERS: PCP Family Medicine; Visit Provider Nurse Practitioner Gerontology
DX: N20.0 Calculus of kidney (principal); Z87.442 Personal history of urinary calculi
CPT/HCPCS: 99214; 74018

== ENCOUNTER 2021-08-31 04:25 | Outpatient (CLI) | payer MEDICARE, SELFPAY ==
[2021-08-31 08:19] LABS: Anion Gap 11.9 mmol/L (3-11); BUN 26 mg/dL (7-18); CO2 24.1 mmol/L (21.0-32.0); CREATININE 1.6 mg/dL (0.70-1.30); Calcium 9.1 mg/dL (8.5-10.1); Chloride 105 mmol/L (98-107); Glucose 105 mg/dL (74-106); Potassium 4.3 mmol/L (3.5-5.1); Sodium 141 mmol/L (136-145)
== END 2021-08-31 04:26 | disposition home or self-care (01) ==
LOC: LBO 04:25
PROVIDERS: PCP Family Medicine; Visit Provider Family Medicine
DX: N18.9 Chronic kidney disease, unspecified (principal)
CPT/HCPCS: 36415; 80048

== ENCOUNTER 2022-01-10 01:06 | Outpatient (CLI) | payer MEDICARE, SELFPAY ==
--- NOTE | 2022-01-10 10:07 | DI.RAD_ITS ---
Exam(s) XR ABDOMEN FLAT PLATE EXAM: XR ABDOMEN FLAT PLATE CLINICAL HISTORY: monitoring renal stones,z87.442. TECHNIQUE: 2D digital imaging was performed. COMPARISON: CR XR ABDOMEN FLAT PLATE from 01/13/2021 FINDINGS: Single AP supine view of the abdomen Bowel gas pattern is nonspecific in the supine position. Three calculi are again noted over the mid-lower pole the right kidney, measuring up to 5 millimeters in size. Calculi are seen in both upper and lower poles of the opposite-left kidney, the largest me asuring 4-5 millimeters. No calculi seen along the course of the ureters in the abdomen. There is a 3 millimeter calcific density seen in the right-side of the pelvis which is unchanged from the prior study. Cannot exclude the possibly that this may be a calculus in the lower right ureter. IMPRESSION: DATA REPOSITORY: RADIATION DOSE DELIVERED:
== END 2022-01-10 01:26 ==
LOC: DI 01:07
PROVIDERS: PCP Family Medicine; Visit Provider Nurse Practitioner Gerontology
DX: N20.0 Calculus of kidney
CPT/HCPCS: 74018

== ENCOUNTER → 2022-01-19 15:11 | Outpatient (BNVA) | payer MEDICARE, SELFPAY | PROVIDERS: PCP Family Medicine; Referring Provider Family Medicine; Visit Provider Nurse Practitioner Gerontology | DX: N20.0 Calculus of kidney (principal) | CPT/HCPCS: 99214 ==

== ENCOUNTER 2022-02-10 14:03 | Outpatient (REF) | payer MEDICARE, SELFPAY ==
[2022-02-12 11:57] LABS: COVID-19 RT-PCR UVMMC Result Negative (Negative)
== END 2022-02-10 14:04 | disposition home or self-care (01) ==
LOC: LBN 14:03
PROVIDERS: PCP Family Medicine; Visit Provider Student in an Organized Health Care Education/Training Program
DX: J40 Bronchitis, not specified as acute or chronic (principal)
CPT/HCPCS: U0003

== ENCOUNTER 2022-05-29 01:36 | Inpatient (IN) | payer MEDICARE, SELFPAY ==
[2022-05-29] VITALS (43 sets, daily range): BP systolic 112–170; BP diastolic 55–99; PULSE 44–89; RESP 16–20; TEMP 36–36.9; O2SAT 91–97
--- NOTE | 2022-05-29 01:45 | RT.EKG_ITS ---
APPROVED REPORT Exam: Resting ECG Reason for Exam: vomiting Patient Location: E HR:81 bpm ECG Measurements Heart Rate 81 AXIS UT 219 P 41 QRSd 136 QRS -54 QT 415 T -3 QTc 481 Conclusion Sinus rhythm...normal P axis, V-rate 60- 99 Ventricular premature complex...V complex w/ short R-R interval Borderline prolonged UT interval...UT >212, V-rate 50- 90 RBBB and LAFB...QRSd >120mS, axis(-40,240)
[2022-05-29 02:01] LABS: Abs Immature Grans 0.03 10^3/uL (0.0-0.06); Absolute Basophil Count 0.07 10^3/uL (0.0-0.2); Absolute Eosinophil Count 0.34 10^3/uL (0.0-0.7); Absolute Lymphocyte Count 1.97 10^3/uL (1.2-3.4); Absolute Monocyte Count 0.77 10^3/uL (0.1-0.8); Absolute Neutrophil Count 8.47 10^3/uL (1.2-6.7); Basophils % 0.6; Eosinophils % 2.9; HCT 45.4 % (40.0-50.0); HGB 15.4 g/dL (13.5-17.5); Immature Grans % 0.3; Lymphocytes % 16.9; MCH 31.3 pg (27.0-33.0); MCHC 33.9 % (32.0-36.0); MCV 92 fL (80-95); MPV 9.3 fL (8.0-11.0); Monocytes % 6.6; Neutrophils % 72.7; Platelet Count 268 10^3/uL (130-400); RBC 4.92 10^6/uL (4.36-5.78); RDW 13.2 % (11.8-14.1); RDW-SD 44.7 fL; WBC 11.65 10^3/uL (4.4-10.8)
--- NOTE | 2022-05-29 02:03 | W.ED.GENAD ---
Discharge Plan Disposition Patient Disposition: Admit to [facility] Condition: Improving Discharge Details Chief Complaint: GI Bleed Clinical Impression: Partial small bowel obstruction Primary Care Provider: Jace Lott ED Provider: Matt Acevedo Home Meds and New Rx's Prescriptions: No Action ibuprofen [Advil] 200 mg tablet 400 mg PO Q6H PRN allopurinol 300 mg tablet 300 mg PO DAILY Qty: 90 3RF lisinopril 20 mg tablet 20 mg PO DAILY Qty: 90 3RF lovastatin 20 mg tablet 20 mg PO DAILY Qty: 90 3RF diltiazem HCl 240 mg capsule,extended release 24 hr 240 mg PO DAILY Qty: 90 3RF Medical Decision Making This is a 81-year-old male who presents from home with his with approximately 14 episodes of recurrent emesis that he describes as brown. Upon arrival he is not vomiting, is afebrile with a pulse of 85. The history is concerning for bowel obstruction, enteritis. He reports dark emesis and must consider GI bleed as well. Patient IV access established, screening labs obtained and subsequent referred for CT imaging. Labs reveal a white count of 11, hematocrit 45, platelets 268. Patient has chronic renal insufficiency and today BUN is 27, creatinine 2.0. LFTs unremarkable, troponin negative, lipase within normal limits. CT images reveal distended stomach, dilatation of the duodenum and proximal jejunum. Consistent with developing partial small bowel obstruction. Case discussed with on-call surgery HPI General Mode of arrival: ambulatory. Date/Time Provider Initiated Documentation: 05/29/22 01:37. Limitations to Documentation: no limitations. Information obtained by: patient. History of Present Illness 81 year old M presents to the emergency department with the chief complaint of Recurrent vomiting, brown, described as moderate, Quality is described as dull, and is localized to the abdomen. Patient reports no radiation. Patient started experiencing this hour(s) and it has been intermittent. No relieving factors improve symptom(s), Eating worsens symptoms . Patient notes denies chest pain, fever/chills, shortness of breath, syncope and weakness. Patient did receive the following treatments prior to arrival, none Related Data Home Medications Medication Instructions Recorded Confirmed ibuprofen 200 mg tablet (Advil) 400 mg PO Q6H PRN 06/27/19 05/29/22 allopurinol 300 mg tablet 300 mg PO DAILY #90 tabs 01/24/22 05/29/22 diltiazem HCl 240 mg capsule,24 240 mg PO DAILY #90 tabs 01/24/22 05/29/22 hr,extended release lisinopril 20 mg tablet 20 mg PO DAILY #90 tabs 01/24/22 05/29/22 lovastatin 20 mg tablet 20 mg PO DAILY #90 tabs 01/24/22 05/29/22 Previous Rx's Medication Instructions Recorded allopurinol 300 mg tablet 300 mg PO DAILY #90 tabs 01/24/22 diltiazem HCl 240 mg capsule,24 240 mg PO DAILY #90 tabs 01/24/22 hr,extended release lisinopril 20 mg tablet 20 mg PO DAILY #90 tabs 01/24/22 lovastatin 20 mg tablet 20 mg PO DAILY #90 tabs 01/24/22 Allergies Allergy/AdvReac Type Severity Reaction Status Date / Time No Known Allergies Allergy Verified 02/10/22 13:46 General Stated Complaint: GI Bleed COREY: 2 Review of Systems Narrative: Denies chest pain or shortness of breath. Recently well. Normal bowel movement yesterday. No regular anticoagulants. 8 systems were reviewed and otherwise negative PFSH All Active Problems (Updated 05/29/22 @ 04:17 by Matt Acevedo MD) Partial small bowel obstruction (Acute) Flu-like symptoms (Acute) White coat syndrome with diagnosis of hypertension (Acute) Kidney stones, calcium oxalate (Acute) Obesity, Class II, 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 currently on weight watcher's diet and has lost almost 40 lb in the last year intentionally b. denies any supplements Syncope (Acute 04/15/14) Trimalleolar fracture of right ankle (Acute 03/28/14) a. repaired by Dr. Bar on 04/03 Drug-induced constipation (Acute) a. due to narcotics Heart murmur (Acute) I/ Systolic Heart Murmur- First noted 05/04 Per pt. states he has had no issues regarding this, F/U up with PCP Dr. Lott BPH (benign prostatic hyperplasia) (Chronic) Probable Metabolic syndrome (Chronic) a. high triglycerides b. low HDL Gout (Chronic) Hyperlipidemia (Chronic) Hypertension (Chronic) Chronic kidney insufficiency (Chronic) a. Since at least 1998 b. baseline creatinine 1.9 Medical History Calculus of proximal right ureter Hx of fracture of ankle R ankle (mert placed) Family History Mother , of hemorrhage but unknown No problems noted. Father , of heart issues No problems noted. Social History Smoking/Tobacco Use Status: Never Smoking risk assessment performed?: Yes Alcohol Intake: current Alcohol Intake frequency: holidays/special occasions only Alcohol type: beer and hard liquor Drug use: Never Substance use type: does not use Adopted: No Household members: spouse Housing: house Number of Children: 1 Communication Needs: Corrective Lenses Do you need help understanding health information?: Never current occupation: Retired Sexually active: Yes Do you think of yourself as: straight/heterosexual Current gender identity: male What is your relationship status?: Panel score (0-1 are the most socially isolated patients): 1 What type of physical activity do you participate in: none Seatbelt use: always 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 Pleasant, well groomed, interactive. HEAD: Normocephalic, atraumatic ENT: Mucous membranes moist, oropharynx unremarkable, External ear exam unremarkable EYES: PERRL, EOMI NECK: Full ROM, no YAZAN, no menigismus CHEST/RESP: Nontender, clear to auscultation bilateral, no wheeze/rhonchi/rales CARDIOVASCULAR: RRR, no murmur, rub maxine. 2+ Rad pulse bilateral ABDOMEN: Soft, tender in the epigastrium, no mass. +Bowel sounds EXT: Full ROM, no edema, no rash Neuro: Grossly normal neurologic exam, conversant, interactive. Psych: Speech fluent, thoughts congruent, affect normal Course Vital Signs Vital signs: Vital Signs Temperature 36.8 C 05/29/22 01:48 Pulse 85 05/29/22 01:48 Respiratory Rate 20 05/29/22 01:48 Blood Pressure 139/61 05/29/22 01:48 Pulse Oximetry 96 05/29/22 01:48 Temperature 36.8 C 05/29/22 01:48 Pulse 85 05/29/22 01:48 Respiratory Rate 20 05/29/22 01:48 Respiratory Effort Non-Labored 05/29/22 01:53 Blood Pressure 139/61 05/29/22 01:48 Blood Pressure Position Sitting 05/29/22 01:48 Pulse Oximetry 96 05/29/22 01:48 Oxygen Delivery Method Room Air 05/29/22 01:48 Oxygen Flow Rate 0 05/29/22 01:48 Pain Level 5 05/29/22 01:48
[2022-05-29 02:11] LABS: ALT 24 U/L (16-63); AST 22 U/L (15-37); Albumin 4.7 g/dL (3.4-5.0); Alkaline Phosphatase 91 U/L (46-116); Anion Gap 9.8 mmol/L (3-11); BUN 27 mg/dL (7-18); CO2 31.2 mmol/L (21.0-32.0); Calcium 10.4 mg/dL (8.5-10.1); Chloride 102 mmol/L (98-107); Estimated GFR 33.32 (mL/min/1.73m2); Glucose 148 mg/dL (74-106); Magnesium 2.2 mg/dL (1.8-2.4); Potassium 3.7 mmol/L (3.5-5.1); Sodium 143 mmol/L (136-145); Total Protein 8.9 g/dL (6.4-8.2); Troponin I < 50 ng/L (<or=60)
[2022-05-29] MEDS: Normal Saline 1,000 ML 1000 ML IV (02:15)
[2022-05-29] MEDS: Ondansetron 4 MG/2 ML VIAL IVP ×3 (02:15→12:05)
--- NOTE | 2022-05-29 02:15 | DI.CT_ITS ---
Exam(s) CT ABDOMEN PELVIS WO EXAM: CT ABDOMEN PELVIS WO CLINICAL HISTORY: Vomiting, elev BUN/Cr. TECHNIQUE: Imaging Protocol: Axial computed tomography images with coronal and sagittal reformatted images were created and reviewed. Oral: / no COMPARISON: CT CT ABDOMEN PELVIS WO from 11/24/2019 FINDINGS: ABDOMEN: Lung Bases: Minimal atelectasis or scarring. Coronary artery calcifications. Liver: Normal density. No measurable mass. Gallbladder and biliary tract: No radiodense calculus or dilation. Pancreas: Somewhat atrophic. Normal density, no abnormal calcifications or inflammatory process. Spleen: Normal. Kidneys: Normal size, contour and axis. No radiodense stones or obstructive uropathy. bilateral cyst s. Small bilateral nonobstructing stones. No suspicious Masses seen. Adrenal glands: No masses seen. Lymph nodes: Within normal limits. Abdominal Aorta: Abdominal portion non-dilated. Moderate atherosclerotic changes. PELVIS: Bladder: Symmetric distention, no gross wall thickening. Bowel: Somewhat limited evaluation due to lack of contrast and respiratory motion. Stomach, duodenum and proximal jejunum dilated and fluid filled. Distal small bowel loops decompressed. Diverticulos is. No evidence of diverticulitis. No evidence of appendicitis. Peritoneal cavity: No ascites, collection or mesenteric inflammatory response. Reproductive organs: Within normal limits. Bones: Spondylolysis L5 and spondylolisthesis L5-S1. IMPRESSION: Findings consistent with early or partial small bowel obstruction. RADIATION DOSE DELIVERED: 1,515.61mGy.cm Total DLP DATA REPOSITORY: All CT scans at this facility are submitted to the National Radiology Data Registry (NRDR) Dose Index Registry (DIR) with the [employer] (ACR). RADIATION OPTIMIZATION: All CT scans at this facility use at least one of these dose optimization te chniques: automated exposure control; mA and/or kV adjustment per patient size (includes targeted exa ms where dose is matched to clinical indication); or iterative reconstruction.
[2022-05-29 02:24] LABS: Lipase 107 U/L (73-393)
[2022-05-29] MEDS: HYDROmorphone 2 MG/ML SYR 0.5 MG IVP (03:22)
--- NOTE | 2022-05-29 04:10 | DI.VRAD_ITS ---
Addendum created by Herbie Jeffries MD on 05/29/2022 4:12:42 AM EST: THIS REPORT CONTAINS FINDINGS THAT MAY BE CRITICAL TO PATIENT CARE. The findings were verbally communicated via telephone conference with LUKE ANGELO at 4:12 AM EST on 05/29/2022. The findings were acknowledged and understood. Initial report created on 05/29/2022 4:09:36 AM EST: PROCEDURE INFORMATION: Exam: CT Abdomen And Pelvis Without Contrast Exam date and time: 05/29/2022 2:39 AM Age: 81 years old Clinical indication: Vomiting TECHNIQUE: Imaging protocol: Computed tomography of the abdomen and pelvis without contrast. COMPARISON: CT ABDOMEN PELVIS WO 11/24/2019 8:32 PM FINDINGS: Minimal subsegmental atelectasis versus scarring Liver: Normal. No mass. Gallbladder and bile ducts: Contracted No calcified stones. No ductal dilation. Pancreas: Normal. No ductal dilation. Spleen: Normal. No splenomegaly. Adrenal glands: Normal. No mass. Kidneys and ureters: Bilateral renal cysts. Bilateral renal calculi. No hydronephrosis. Stomach and bowel: Distended stomach with fluid. Mild dilatation of the duodenum and proximal jejunum. Relative decompression in the right lower quadrant with semi-solid contents noted within the small bowel Colonic diverticulosis. Appendix: No evidence of appendicitis. Intraperitoneal space: Unremarkable. No free air. No significant fluid collection. Vasculature: Unremarkable. No abdominal aortic aneurysm. Lymph nodes: Unremarkable. No enlarged lymph nodes. Urinary bladder: Unremarkable as visualized. Reproductive: Unremarkable as visualized. Bones/joints: Chronic spondylolysis with spondylolisthesis at L5-S1, grossly stable No acute fracture. Soft tissues: Unremarkable. IMPRESSION: Findings suspect for developing partial small bowel obstruction with relative decompression in the right lower quadrant as noted Nonobstructing renal calculi Colonic diverticulosis without diverticulitis Dictated and Authenticated by: Herbie Jeffries MD. Ordering:ADRIAN Gutierrez MD
[2022-05-29] MEDS: Normal Saline 1,000 ML 125 ML IV ×3 (04:24→19:15)
[2022-05-29 04:34] LABS: Source Nasal/Nares
[2022-05-29 05:04] LABS: COVID-19 PCR Negative (Negative)
[2022-05-29] MEDS: Gastrografin 120 ML BTL PO (11:01)
--- NOTE | 2022-05-29 19:00 | DI.RAD_ITS ---
Exam(s) XR ABDOMEN FLAT PLATE EXAM: 2D digital imaging was performed. CLINICAL HISTORY: small bowel obstruction gastrographin challenge. COMPARISON: CR XR ABDOMEN FLAT PLATE from 01/10/[address] ABDOMEN PELVIS WO from 05/29/2022 TECHNIQUE: Supine views of the abdomen performed. FINDINGS: BOWEL GAS PATTERN: Nondistended. Small bowel dilatation shows improvement from CT scan performed ear lier the same day. Gastrografin has been administered since the prior CT. The Gastrografin is seen within the colon, from the cecum to the rectum. Some diverticula are noted in the lower descending a nd sigmoid region. CALCIFICATIONS: Bilateral renal calculi. OSSEOUS STRUCTURES: Normal for age. OTHER FINDINGS: Nasogastric tube tip projecting in fundus of stomach. IMPRESSION: 1. Nonobstructive bowel gas pattern. Administered Gastrografin is seen within the colon. 2. Bilateral renal calculi, similar to prior. DATA REPOSITORY: RADIATION DOSE DELIVERED:
--- NOTE | 2022-05-29 19:42 | DI.VRAD_ITS ---
PROCEDURE INFORMATION: Exam: XR Abdomen Exam date and time: 05/29/2022 7:01 PM Age: 81 years old Clinical indication: Screening exam; Other: Sbo gastrographin challenge; Patient HX: Following sbo, gastrographin challenge TECHNIQUE: Imaging protocol: Radiologic exam of the abdomen. Views: Frontal supine view of the abdomen. 1 View. COMPARISON: CT ABDOMEN PELVIS WO 05/29/2022 2:39 AM FINDINGS: Tubes, catheters and devices: NG tube is in the region of the gastric cardia. Gastrointestinal tract: Gastrografin is entirely within the large bowel at this time. There is no significant residual material within the small bowel. No small bowel distention. Bones/joints: Degenerative lumbar spine. IMPRESSION: 1. Gastrografin is nearly entirely within the large bowel from the cecum to the rectum. 2. No eldon residual small-bowel distention. 3. NG tube noted. 4. Degenerative lumbar spine. Dictated and Authenticated by: Slick Granado MD. Ordering:LEORA Lopez MD
[2022-05-30] MEDS: Normal Saline 1,000 ML 125 ML IV (03:07)
[2022-05-30 08:15] VITALS: BP 167/81; PULSE 87; RESP 19; TEMP 36.9; O2SAT 96
--- NOTE | 2022-05-30 11:10 | SCONE_ITS ---
Date of service: 05/30/22 Time of Service: 11:11 Assessment and Plan Assessment and plan (1) Ileus due to infection: Status: Acute Assessment and plan: Patient signs and symptoms have resolved at this point and he is tolerating coffee and toast. Follow-up with PCP later this week. Return to ER if signs and symptoms recur Use MiraLAX as needed for constipation Low residual diet for the next 72 hours. Push fluids and minimal activity. See discharge orders. Patient discharged to home in stable and satisfactory condition. (2) Viral gastroenteritis: Status: Acute (3) Kidney stones, calcium oxalate: Status: Acute (4) Obesity, Class II, BMI 35-39.9: Status: Chronic (5) BPH (benign prostatic hyperplasia): Status: Chronic (6) Hyperlipidemia: Status: Chronic (7) Hypertension: Status: Chronic (8) Coronary artery calcification seen on CAT scan: Status: Acute (9) Diverticula of colon: Status: Acute (10) Flu-like symptoms: Status: Acute History of Present Illness Narrative: Patient was admitted through the ER last night by Dr. Rangel. He had less than 24 hours of abdominal pain and uncontrolled nausea and vomiting. He has never had anything like this before. He went out to dinner with his shortly after coming home he started having abdominal pain which led to uncontrolled vomiting and dehydration. He denies vomiting up any blood. No one else at home has been ill. They have had no travel outside the state. He has no history of bowel obstructions. He has no history of abdominal surgeries. He has had no fever or chills. He did have a CT scan in the ER which did show significant amount of stool. He has had multiple bowel movements following a Gastrografin challenge. He tolerated toast and coffee this morning. Currently he is having no abdominal pain he has good bowel sounds. He feels good and would like to go home. Review of Systems All systems reviewed & are unremarkable except as noted in HPI and below PFSH All Active Problems (Updated 05/31/22 @ 06:30 by Silvia Hooper DO) Diverticula of colon (Acute) Coronary artery calcification seen on CAT scan (Acute) Ileus due to infection (Acute) Viral gastroenteritis (Acute) Flu-like symptoms (Acute) White coat syndrome with diagnosis of hypertension (Acute) Kidney stones, calcium oxalate (Acute) Obesity, Class II, 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 currently on weight watcher's diet and has lost almost 40 lb in the last year intentionally b. denies any supplements Trimalleolar fracture of right ankle (Acute 03/28/14) a. repaired by Dr. Bar on 04/03 Drug-induced constipation (Acute) a. due to narcotics Heart murmur (Acute) I/ Systolic Heart Murmur- First noted 05/04 Per pt. states he has had no issues regarding this, F/U up with PCP Dr. Lott BPH (benign prostatic hyperplasia) (Chronic) Probable Metabolic syndrome (Chronic) a. high triglycerides b. low HDL Gout (Chronic) Hyperlipidemia (Chronic) Hypertension (Chronic) Chronic kidney insufficiency (Chronic) a. Since at least 1998 b. baseline creatinine 1.9 Medical History (Updated 05/31/22 @ 06:30 by Silvia Hooper DO) Calculus of proximal right ureter Hx of fracture of ankle R ankle (mert placed) Syncope (04/15/14) Family History Mother , of hemorrhage but unknown No problems noted. Father , of heart issues No problems noted. Social History Smoking/Tobacco Use Status: Never Smoking risk assessment performed?: Yes Alcohol Intake: current Alcohol Intake frequency: holidays/special occasions only Alcohol type: beer and hard liquor Drug use: Never Substance use type: does not use Adopted: No Household members: spouse Housing: house Number of Children: 1 Communication Needs: Corrective Lenses Do you need help understanding health information?: Never current occupation: Retired Sexually active: Yes Do you think of yourself as: straight/heterosexual Current gender identity: male What is your relationship status?: Panel score (0-1 are the most socially isolated patients): 1 What type of physical activity do you participate in: none Seatbelt use: always Drive 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 Her chief) and oriented x3 Other: PHYSICAL EXAM GENERAL APPEARANCE: Alert, healthy appearance, oriented, x 3,? in no acute distress HYDRATION: Well hydrated HEAD, EYES, EARS, NECK, THROAT: Head is normocephalic, pupils equal, round, reactive to light and accommodation, ocular movement intact, sclera clear and no jaundice. ?Dentition intact. NECK: no lymphadenopathy.? Trachea midline.? Neck supple.? No JVD LUNGS: normal respiration/normal chest excursion. ?Clear to auscultation bilaterally. ?No R/R/W ?HEART: Regular rate and rhythm. no murmurs ABDOMEN: soft and non-tender to palpation.? Normal bowel sounds.? No hernia Results Last Vital Signs Temp 36.9 C 05/30/22 08:15 Pulse 87 05/30/22 08:15 Resp 19 05/30/22 08:15 BP 167/81 H 05/30/22 08:15 Pulse Ox 96 05/30/22 08:15 Labs Result diagrams: 05/29/22 01:45 05/29/22 01:45
--- NOTE | 2022-05-30 11:11 | DSE_ITS ---
Date of service: 05/30/22 Time of Service: 11:11 DS: Diagnosis Discharge Diagnosis (1) Ileus due to infection: Status: Acute (2) Viral gastroenteritis: Status: Acute (3) Flu-like symptoms: Status: Acute Discharge Plan Disposition Patient Disposition: Home Condition: Improving Discharge Details Reason For Visit: Ileus secondary to viral gastroenteritis Admit Date/Time: 05/29/22 04:20 Admit Provider: John Rangel Attending Provider: John Rangel Primary Care Provider: Jace Lott [facility] Course Hospital Course: Patient developed abdominal pain and then and came to the emergency room on 05/30. CT showed partial ileus. Patient underwent a Gastrografin challenge which showed no obstructions or hernias. He has never had abdominal surgery before. He has had a colonoscopy that was normal in the past with Dr. Metzger, although this is sometime before. Today he has no abdominal pain and tolerated toast and coffee and has had multiple bowel movements and wishes to be discharged. He should follow-up with his PCP in 1 week's time. See discharge instructions Home Meds and New Rx's Prescriptions: No Action ibuprofen [Advil] 200 mg tablet 400 mg PO Q6H PRN allopurinol 300 mg tablet 300 mg PO DAILY Qty: 90 3RF lisinopril 20 mg tablet 20 mg PO DAILY Qty: 90 3RF lovastatin 20 mg tablet 20 mg PO DAILY Qty: 90 3RF diltiazem HCl 240 mg capsule,extended release 24 hr 240 mg PO DAILY Qty: 90 3RF Discharge Instructions Instructions: Gastroenteritis (DC), GI (Gastrointestinal) Soft Diet (DC) Additional Instructions: -Follow-up with surgery clinic in 1 week. -soft diet:see below -no straining to move bowels -pain meds are very constipating: if you do not move your bowels daily take a dose of OTC milk of magnesia -It is ok to shower. -You may find that your appetite is smaller. Eat 3-6 small meals throughout the day. It is important to drink lots of water after you have been in the hospital, 6-10 glasses a day. -We do want you up walking, at least 5-6 times per day. This is very important to prevent pneumonia and blood clots. You can climb stairs, take them slowly. -No lifting over 10 pounds or strenuous activity x72 hours -You may find that you are very tired after you have been in the hospital- this is normal. -please do not smoke for a minimum of 72 hours after surgery. Gastrointestinal Soft Diet Overview Overview What is a gastrointestinal soft diet? This diet is soft in texture, low in fiber, and easy to digest. The goal is to decrease) ?in the bowel that may cause and discomfort. This diet is often used after abdominal surgery or as a transitional diet after flares. Meats & Meat Substitutes ?? Foods Allowed: Chicken, turkey, fish, tender cuts of beef and pork, ground meats, eggs, creamy nut butters, tofu, skinless hot dogs, sausage patties without whole spices ?? Foods to Avoid : Tough, fibrous meats with gristle, meat with casings (hot d ogs, sausage, kielbasa), lunch meats with whole spices, shellfish, beans, chunky peanut butter, nuts Fruits and Juices ?? Foods Allowed: Fruit juices without pulp, banana, avocado, applesauce, canned peaches and pears, cooked fruit without the skin/seeds.? Ground or over- cooked fruits.? Fruits ground finely in a ?smoothie?. ?? Foods to Avoid: Juices with pulp, fresh fruit (except banana and avocado), dried fruits, canned fruit cocktail and pineapple, coconut, frozen/thawed berr ies Vegetables ?? Foods Allowed: Well-cooked or canned vegetables, potatoes without skin, tomato sauces, vegetable juice ?? Foods to Avoid: Raw vegetables, all corn, all mushrooms, stewed tomatoes, potato skins, stir-mcguire vegetables, sauerkraut, pickles, olives, all dried beans, peas, and legumes Cereals and Grains ?? Foods Allowed: Low- fiber dry or cooked cereals (less than 2 grams fiber per serving), white rice, pasta, macaroni, or noodles ?? Foods to Avoid: Cereals with nuts, berries, dried fruits, whole grain cereals, bran cereals, granola, brown or wild rice, whole grain pasta Breads and Crackers ?? Foods Allowed: White/refined breads and rolls, plain bagel, toast, plain crac kers, trista crackers ?? Foods to Avoid: Whole grain breads- including white whole grain; bread/ rolls with raisins, nuts or seeds, multi-grain crackers Dairy ?? Foods Allowed: Milk, cheese, yogurt, milkshakes, pudding, ice cream, cottage cheese, sherbet ;?lactose free or low lactose versions if lactose intolerant ?? Foods to Avoid: Dairy product mixed with fresh fruit (except banana), berries, nuts or seeds Desserts ?? Foods Allowed: Plain cake, pudding, custard, ice cream, sherbet, gelatin, fruit whips ?? Foods to Avoid: Any dessert that contains nuts, dried fruits, coconut, or fruits with seeds Herbs and Spices ?? Foods Allowed: All ground spices or herbs, salt ?? Foods to Avoid: Whole spices such as peppercorns, whole cloves, anise seeds, celery seeds, bonifacio, erna seeds, and fresh herbs Snacks/Other Foods ?? Foods Allowed: Sugar, honey, jelly, mayonnaise, mustard, soy sauce, oil, butter, margarine, marshmallows, cookies without dried fruits or nuts, snack chips and pretzels using refined flours ?? Foods to Avoid: Carbonated beverages, jams or jellies with seeds, popcorn After several weeks, slowly start to reintroduce the ?Foods to Avoid? back into your diet unless your doctor has told you otherwise. Try a small portion of one of these foods each day. If it does not bother you within 24 hours, it can be added to your diet. Continue to add new foods in this way. Some people may continue to have food sensitivities and may need to continue to avoid certain foods. If you cannot tolerate a food, avoid that food for a few weeks before you try it again. Guidelines when eating 1.??? Avoid any food that you cannot tolerate or that causes gas, bloating, or stomach pain. 2.??? Make time for your meals. Do not eat while you are in a hurry. Cut your food into small pieces. Chew each bite to a mashed potato consistency. Do not eat when you cannot concentrate on chewing well. 3.??? Drink at least 6-8 cups of fluid per day? Fluids include: water, coffee, tea, juice, milk, popsicles, soups, gelatin, pudding, ice cream, sherbet, and yogurt. In addition, choose caffeine-free beverages more often, especially if you are having?diarrhea. 4.??? A daily multivitamin may be recommended if diet is limited in amounts or variety of foods. Do not take any herbal supplements without first checking with your doctor. Stand Alone Forms: Nursing Discharge Form Referrals: Jace Lott DO [Primary Care Provider] - (Please call an make an Appointment Monday to be seen in the next 7-14 days [phone]) John Rangel MD [ [facility] STAFF PHYSICIAN] - (Please call an make an Appointment Monday to be seen in the next 7days) Activity:: See above Equipment/Supplies:: No Equipment Needed Diet:: Low fiber Discharge Orders Discharge Orders: Discharge Order (Routine); Ordered 05/30/22 Ordered By: Silvia Hooper DS: Summary Time Spent with Patient providing and/or coordinating discharge services: Less than 30 minutes Status at Discharge Functional status at discharge: independent ambulation Overall status at discharge: patient is progressing back to baseline Mental Status: mental status grossly normal Speech and Movement: speech and movement normal Mood: congruent mood Affect: normal affect Exam Psych Mental Status: mental status grossly normal Speech and Movement: speech and movement normal Mood: congruent mood Affect: normal affect DS: Data Vitals/I&O Vitals and I&O: Vital Signs Temperature 36.9 C 05/30/22 08:15 Temperature Source Tympanic 05/30/22 08:15 Pulse 87 05/30/22 08:15 Pulse Rhythm Regular 05/30/22 07:15 Pulse 69 05/29/22 05:20 Respiratory Rate 19 05/30/22 08:15 Respiratory Effort 05/30/22 07:15 Respiratory Depth Normal 05/30/22 07:15 Respiratory Pattern Normal 05/30/22 07:15 Blood Pressure 167/81 H 05/30/22 08:15 Blood Pressure Mean 85 05/29/22 05:16 Blood Pressure Position Sitting 05/29/22 01:48 Pulse Oximetry 96 05/30/22 08:15 Oxygen Delivery Method Room Air 05/30/22 08:15 Oxygen Flow Rate 0 05/30/22 08:15 Pain Level 7 05/29/22 08:12 Comment 05/29/22 15:22 Intake & Output 05/29/22 05/29/22 05/30/22 11:59 23:59 11:59 Intake Total 1191.25 / 2845.417 1654.167 / 2845.417 983.333 / 983.333 Output Total 1050 / 2750 1700 / 2750 Balance 141.25 / 95.417 -45.833 / 95.417 983.333 / 983.333 Weight 99.79 kg Intake: IV 1191.25 / 2845.417 1654.167 / 2845.417 983.333 / 983.333 Output: Gastric Drainage 250 / 250 Left Nare 250 / 250 Stool 1700 / 1700 Emesis 800 / 800 Other: Urine Color Yellow Yellow Urine Appearance Clear Clear Clear Urine Odor None None Comment Patient reports voiding at this time. Patient voided independently in toilet. Patient voided independently in toilet. Stool Size Moderate Stool Characteristics Liquid Emesis Description Retching Projectile Bile Coffee Grounds Gastric Occult Blood Negative Voiding Methods Toilet Toilet Data Completed and Pending Labs on day of discharge: Labs from last 24 hours 05/29/22 14:38 Stool Description Pending Stool Ova & Parasites Pending [facility] All Active Problems (Updated 05/30/22 @ 11:12 by Silvia Hooper DO) Ileus due to infection (Acute) Viral gastroenteritis (Acute) Flu-like symptoms (Acute) White coat syndrome with diagnosis of hypertension (Acute) Kidney stones, calcium oxalate (Acute) Obesity, Class II, 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 currently on weight watcher's diet and has lost almost 40 lb in the last year intentionally b. denies any supplements Syncope (Acute 04/15/14) Trimalleolar fracture of right ankle (Acute 03/28/14) a. repaired by Dr. Bar on 04/03 Drug-induced constipation (Acute) a. due to narcotics Heart murmur (Acute) I/ Systolic Heart Murmur- First noted 05/04 Per pt. states he has had no issues regarding this, F/U up with PCP Dr. Lott BPH (benign prostatic hyperplasia) (Chronic) Probable Metabolic syndrome (Chronic) a. high triglycerides b. low HDL Gout (Chronic) Hyperlipidemia (Chronic) Hypertension (Chronic) Chronic kidney insufficiency (Chronic) a. Since at least 1998 b. baseline creatinine 1.9 Medical History Calculus of proximal right ureter Hx of fracture of ankle R ankle (mert placed) Family History Mother , of hemorrhage but unknown No problems noted. Father , of heart issues No problems noted. Social History Smoking/Tobacco Use Status: Never Smoking risk assessment performed?: Yes Alcohol Intake: current Alcohol Intake frequency: holidays/special occasions only Alcohol type: beer and hard liquor Drug use: Never Substance use type: does not use Adopted: No Household members: spouse Housing: house Number of Children: 1 Communication Needs: Corrective Lenses Do you need help understanding health information?: Never current occupation: Retired Sexually active: Yes Do you think of yourself as: straight/heterosexual Current gender identity: male What is your relationship status?: Panel score (0-1 are the most socially isolated patients): 1 What type of physical activity do you participate in: none Seatbelt use: always Drive intox or ride w/intox local flatbed driver: No Working smoke detector in home: Yes Carbon monox detector in home: Yes Do you feel safe at home: Yes Do you feel safe in your relationship?: Yes
== END 2022-05-30 11:35 | disposition home or self-care (01) | DRG 392 ==
LOC: ER 04:44 → MS 05:28
PROVIDERS: Admitting Provider Surgery; Emergency Provider Emergency Medicine; PCP Family Medicine; Visit Provider Surgery
DX: A08.4 Viral intestinal infection, unspecified (principal); K56.7 Ileus, unspecified; E66.9 Obesity, unspecified; Z68.31 Body mass index [BMI] 31.0-31.9, adult; K59.03 Drug induced constipation; T40.2X5A Adverse effect of other opioids, initial encounter; N20.0 Calculus of kidney; N40.0 Benign prostatic hyperplasia without lower urinary tract symptoms; M10.9 Gout, unspecified; N18.9 Chronic kidney disease, unspecified; I12.9 Hypertensive chronic kidney disease with stage 1 through stage 4 chronic kidney disease, or unspecified chronic kidney disease; E78.5 Hyperlipidemia, unspecified; E88.81 Metabolic syndrome and other insulin resistance; K57.30 Diverticulosis of large intestine without perforation or abscess without bleeding; I25.10 Atherosclerotic heart disease of native coronary artery without angina pectoris
CPT/HCPCS: 80053; 83690; 86850; 86900; 86901; 87635; 93005; 96361; 96374; 96375; 99222; 99285; 74018; 74176; 83735; 84484; 85025; 87177; 93010; J1170; J2405

== ENCOUNTER → 2022-06-06 13:11 | Outpatient (BNVA) | payer MEDICARE, SELFPAY | PROVIDERS: PCP Family Medicine; Referring Provider Family Medicine; Visit Provider Surgery | DX: R11.2 Nausea with vomiting, unspecified (principal) | CPT/HCPCS: 99214 ==

== ENCOUNTER 2022-08-15 03:46 | Outpatient (CLI) | payer MEDICARE, SELFPAY ==
[2022-08-15 08:44] LABS: Anion Gap 8.4 mmol/L (3-11); BUN 25 mg/dL (7-18); CO2 27.6 mmol/L (21.0-32.0); CREATININE 1.8 mg/dL (0.70-1.30); Calcium 9.8 mg/dL (8.5-10.1); Chloride 105 mmol/L (98-107); Estimated GFR 37.58 (mL/min/1.73m2); Glucose 110 mg/dL (74-106); Potassium 4.4 mmol/L (3.5-5.1); Sodium 141 mmol/L (136-145)
== END 2022-08-15 03:47 | disposition home or self-care (01) ==
LOC: LBO 03:46
PROVIDERS: PCP Family Medicine; Visit Provider Family Medicine
DX: I10 Essential (primary) hypertension (principal); N18.9 Chronic kidney disease, unspecified
CPT/HCPCS: 36415; 80048

== ENCOUNTER → 2023-01-17 01:57 | Outpatient (CLI) | payer MEDICARE, SELFPAY ==
--- NOTE | 2023-01-17 07:30 | DI.RAD_ITS ---
Exam(s) XR ABDOMEN FLAT PLATE EXAM: XR ABDOMEN FLAT PLATE CLINICAL HISTORY: monitoring calculi,z87.442. TECHNIQUE: 2D digital imaging was performed. COMPARISON: CR,XR XR ABDOMEN FLAT PLATE from 05/29/[address] ABDOMEN PELVIS WO from 05/29/2022 FINDINGS: AP supine view. Bowel gas pattern is nonspecific in the supine position. There are 3 calculi again noted in the lower half of the right kidney, unchanged in size and position from the above study. The upper half the right kidneys obscured by fecal material in the hepatic fl exure of the colon. In the opposite-left kidney there is a 3-4 millimeter calculus in upper pole region, unchanged. Also a smaller 2 millimeter calculus in lower pole calyx of the left kidney noted. There are no obvious radiopaque calculi seen along the course of the ureters. IMPRESSION: Bilateral nephrolithiasis which appears relatively stable when compared to prior x-ray of 05/29/2022. DATA REPOSITORY: RADIATION DOSE DELIVERED:
== END ==
PROVIDERS: PCP Family Medicine; Visit Provider Nurse Practitioner Gerontology
DX: Z87.442 Personal history of urinary calculi (principal)
CPT/HCPCS: 74018

== ENCOUNTER → 2023-01-23 09:19 | Outpatient (BNVA) | payer MEDICARE, SELFPAY | PROVIDERS: PCP Family Medicine; Visit Provider Nurse Practitioner Gerontology | DX: N20.0 Calculus of kidney (principal); I12.9 Hypertensive chronic kidney disease with stage 1 through stage 4 chronic kidney disease, or unspecified chronic kidney disease; N18.9 Chronic kidney disease, unspecified | CPT/HCPCS: 99213 ==

== ENCOUNTER 2023-09-07 05:23 | Outpatient (CLI) | payer MEDICARE, SELFPAY ==
[2023-09-07 07:41] LABS: Anion Gap 8.2 mmol/L (3-11); BUN 21 mg/dL (7-18); CO2 26.8 mmol/L (21.0-32.0); CREATININE 1.8 mg/dL (0.70-1.30); Calcium 9.5 mg/dL (8.5-10.1); Chloride 106 mmol/L (98-107); Estimated GFR 37.35 (mL/min/1.73m2); Glucose 100 mg/dL (74-106); Potassium 4.4 mmol/L (3.5-5.1); Sodium 141 mmol/L (136-145)
== END 2023-09-07 05:24 | disposition home or self-care (01) ==
LOC: LBO 05:23
PROVIDERS: PCP Family Medicine; Referring Provider Family Medicine; Visit Provider Family Medicine
DX: N18.9 Chronic kidney disease, unspecified (principal)
CPT/HCPCS: 36415; 80048

== ENCOUNTER 2024-01-15 02:18 | Outpatient (CLI) | payer MEDICARE, SELFPAY ==
--- NOTE | 2024-01-15 06:30 | DI.RAD_ITS ---
Exam(s) XR ABDOMEN FLAT PLATE EXAM: 2D digital imaging was performed. CLINICAL HISTORY: monitoring renal calculi,z87.442. COMPARISON: CR XR ABDOMEN FLAT PLATE from 01/17/2023 TECHNIQUE: Supine views of the abdomen performed. FINDINGS: BOWEL GAS PATTERN: Nondistended. CALCIFICATIONS: Stable size of 3 stones at the lower half of the right left right kidney. 5 [address] stone noted at the upper pole of the left kidney. Smaller stone noted lower pole left kidney. OSSEOUS STRUCTURES: Degenerative changes in the spine. OTHER FINDINGS: None. IMPRESSION: 1. Nonobstructive bowel gas pattern. 2. Stable bilateral renal calculi. DATA REPOSITORY: RADIATION DOSE DELIVERED:
== END 2024-01-15 02:38 ==
LOC: DI 02:18
PROVIDERS: PCP Family Medicine; Visit Provider Nurse Practitioner Gerontology
DX: N20.0 Calculus of kidney
CPT/HCPCS: 74018

== ENCOUNTER → 2024-01-22 09:38 | Outpatient (BNVA) | payer MEDICARE, SELFPAY | PROVIDERS: PCP Family Medicine; Visit Provider Nurse Practitioner Gerontology | DX: N40.0 Benign prostatic hyperplasia without lower urinary tract symptoms (principal); N20.0 Calculus of kidney | CPT/HCPCS: 99213 ==

== ENCOUNTER 2024-03-17 15:22 | Emergency (ER) | payer MEDICARE, SELFPAY ==
[2024-03-17] VITALS (68 sets, daily range): BP systolic 136–227; BP diastolic 44–121; PULSE 45–74; RESP 10–35; TEMP 36.4–36.8; O2SAT 90–99
--- NOTE | 2024-03-17 15:15 | DI.CT_ITS ---
Exam(s) CT BRAIN NECK CTA EXAM: CT BRAIN NECK CTA CLINICAL HISTORY: dizziness, vomiting. TECHNIQUE: Imaging Protocol: Axial CT angiography was performed with multi-slice acquisition and mu lti-planar and/or 3D reconstructions. CONTRAST MATERIAL: Intravenous: Omnipaque 350 Contrast volume:structured data in ml COMPARISON: CT HEAD WITHOUT CONTRAST from 04/15/2014 FINDINGS: CTA Neck W: Aortic arch anatomy: The aortic arch anatomy is conventional and there is no significant stenosis at the origin of the great vessels off of the aortic arch. No intimal flap evident. Anterior circulation: Both common carotid arteries ascend with normal luminal diameters. However, there is significant mirlande que bilaterally at the carotid bulbs and proximal ICAs. On the right-side there is abundant plaque with significant stenosis in the proximal right ICA approx imately 80-90 percent. There does appear to be some flow within the right ICA within the skull base- carotid canal but the right ICA appears occluded within the right cavernous sinus. See below. On the left side there is circumferential plaque at the carotid bulb and bifurcation and proximal lef t ICA. Stenosis is approximately 50-60 percent at this level. Above this level flow is demonstrated within normal but somewhat tortuous left ICA in the upper neck. Flow is demonstrated within the lef t ICA in the skull base-carotid canal. Posterior circulation: Both vertebral arteries originate in conventional fashion off of the subclavian arteries and there is no obvious stenosis at the origin of the vertebral arteries. Both vertebral arteries exhibit normal luminal diameters within the foramen transversarium. There is calcified plaque in both vertebral arteries at the skull base. No occlusion nor dissection. Both vertebral arteries contribute to the formation of the basilar artery at the skull base. 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 It supraclinoid aspect is reconstituted, probably via the anterior communicating artery from the opposite-left side. The left ICA is patent in the skull base and cavernous sinus although also exhibits circumferential c alcification within the cavernous sinus, similar to the opposite side. The supraclinoid aspect of th e left ICA is patent. Both A1 segments are patent as is the anterior communicating artery. There is no aneurysm at the level the anterior communicating artery. Both middle cerebral arteries are patent with no evidence of significant stenosis nor intraluminal th rombus. There also no aneurysms of these vessels. Posterior circulation: The basilar artery ascends in the midline. Distally it gives off patent bilateral superior cerebella r arteries. Above this level the basilar artery terminates as patent bilateral posterior cerebral arteries. Ther e is a thin posterior communicating artery noted on the right side of the [id number]. There is no evidence of aneurysm at the tip of the basilar artery nor elsewhere in the [id number] is. CT BRAIN: There is no evidence of intracranial hemorrhage, mass effect, or shift of midline structures. There are no extra-axial fluid collections. Ventricles are not enlarged or shifted. There are no ring enh ancing lesions in the brain and no abnormal meningeal enhancement. IMPRESSION: 1. There is significant plaque in the carotid arteries on both sides the neck with critical stenosis on the right side and at the carotid bifurcation-proximal right ICA. There is a thin flow column dem onstrate above this level and flow within the right intracavernous ICA appears occluded. There appea rs to be reconstitution of the right supraclinoid ICA which is most probably thigh flow in the anteri or communicating artery from the opposite side. 2. There is also significant plaque on the left side with approximately 50-60 percent circumferentia l stenosis in the proximal left ICA. 3. Both vertebral arteries are patent although both exhibit calcified plaque at the level of the sku ll base. However, both vertebral arteries contribute to the formation of the basilar artery at the s kull base. 4. No evidence of obvious territorial infarct nor intracranial hemorrhage. No enhancing lesions evid ent in the brain. 5. Close follow-up including MRI/MRA recommended. Called by myself to ER physician 03/17/2024 at 6:35 p.m. RADIATION DOSE DELIVERED: 2,397.87mGy.cm Total DLP DATA REPOSITORY: All CT scans at this facility are submitted to the National Radiology Data Registry (NRDR) Dose Index Registry (DIR) with the [employer] ([employer]). RADIATION OPTIMIZATION: All CT scans at this facility use at least one of these dose optimization te chniques: automated exposure control; mA and/or kV adjustment per patient size (includes targeted exa ms where dose is matched to clinical indication); or iterative reconstruction.
--- NOTE | 2024-03-17 15:15 | DI.RAD_ITS ---
Exam(s) XR CHEST 1V IN DI DEPT EXAM: XR CHEST 1V IN DI DEPT CLINICAL HISTORY: dizzy when moved, vomiting. TECHNIQUE: 2D digital imaging was performed. COMPARISON: No exams were available for comparison FINDINGS: Single AP portable view. Heart size is upper normal. The mediastinum is not widened. Lungs are clear. No infiltrates nor obvious pleural effusions. IMPRESSION: No acute pulmonary findings on this single AP portable view of the chest. DATA REPOSITORY: RADIATION DOSE DELIVERED:
[2024-03-17] MEDS: Meclizine 25 MG TAB PO (15:30)
--- NOTE | 2024-03-17 15:30 | RT.EKG_ITS ---
APPROVED REPORT Exam: Resting ECG Reason for Exam: dizziness Patient Location: E HR:52 bpm ECG Measurements Heart Rate 52 AXIS PA 225 P 0 QRSd 130 QRS -45 QT 471 T -27 QTc 437 Conclusion Sinus bradycardia...rate< 60 Prolonged PA interval...PA >220, V-rate 50- 90 RBBB and LAFB...QRSd >120mS, axis(-40,240) Sinus bradycardia left axis right bundle branch block
--- NOTE | 2024-03-17 15:35 | ED.GENADUL_ITS ---
Discharge Plan Discharge Details Chief Complaint: Dizzy/Sync Primary Care Provider: Jace Lott ED Provider: Benjamín Cheng Home Meds and New Rx's Prescriptions: No Action ibuprofen [Advil] 200 mg tablet 400 mg PO Q6H PRN allopurinol 300 mg tablet 300 mg PO DAILY Qty: 90 3RF diltiazem HCl 240 mg capsule,extended release 24 hr 240 mg PO DAILY Qty: 90 3RF lisinopril 40 mg tablet 40 mg PO DAILY Qty: 90 3RF lovastatin 20 mg tablet 20 mg PO DAILY Qty: 90 3RF HPI General Date/Time Provider Initiated Documentation: 03/17/24 15:34 . HPI Narrative: 83-year-old male presents with 3 days of dizziness nausea and vomiting, feels a spinning sensation, no headache neck pain chest pain shortness of breath abdominal pain. No to be bradycardic by EMS, normal fingerstick in the field Related Data Home Medications ?Medication ?Instructions ?Recorded ?Confirmed ibuprofen 200 mg tablet (Advil) 400 mg PO Q6H PRN 06/27/19 03/17/24 allopurinol 300 mg tablet 300 mg PO DAILY #90 tabs 01/22/24 03/17/24 diltiazem HCl 240 mg capsule,24 240 mg PO DAILY #90 tabs 01/22/24 03/17/24 hr,extended release lisinopril 40 mg tablet 40 mg PO DAILY #90 tabs 01/22/24 03/17/24 lovastatin 20 mg tablet 20 mg PO DAILY #90 tabs 01/22/24 03/17/24 Previous Rx's ?Medication ?Instructions ?Recorded allopurinol 300 mg tablet 300 mg PO DAILY #90 tabs 01/22/24 diltiazem HCl 240 mg capsule,24 240 mg PO DAILY #90 tabs 01/22/24 hr,extended release lisinopril 40 mg tablet 40 mg PO DAILY #90 tabs 01/22/24 lovastatin 20 mg tablet 20 mg PO DAILY #90 tabs 01/22/24 Allergies Allergy/AdvReac Type Severity Reaction Status Date / Time seasonal Allergy Mild Nasal Uncoded 03/17/24 15:30 congestion General Stated Complaint: Dizzy/Sync COREY: 3 Exam Narrative Exam Narrative: Alert interactive although uncomfortable appearing Pupils round reactive equal to light Extraocular motion intact, no nystagmus appreciated Tolerating secretions normal voice Lungs clear bilaterally no wheezes rales or rhonchi Normal heart sounds no murmurs rubs or gallops, intermittent bradycardia Abdomen soft nontender nondistended Cranial nerves II through XII intact 5-5 strength upper and lower extremities bilaterally, normal sensation bilaterally, no truncal ataxia, normal speech No peripheral edema or trauma Course Vital Signs Vital signs: Vital Signs Temperature 36.4 C L 03/17/24 15:16 Pulse 45 L 03/17/24 15:16 Respiratory Rate 18 03/17/24 15:16 Blood Pressure 170/53 H 03/17/24 15:16 Pulse Oximetry 98 03/17/24 15:16 Temperature 36.4 C L 03/17/24 15:16 Temperature Source Temporal Artery Scan 03/17/24 15:16 Pulse 45 L 03/17/24 15:16 Respiratory Rate 16 03/17/24 15:30 Respiratory Effort Normal, Non-Labored 03/17/24 15:30 Respiratory Depth Normal 03/17/24 15:30 Respiratory Pattern Normal 03/17/24 15:30 Blood Pressure 170/53 H 03/17/24 15:16 Blood Pressure Position Sitting 03/17/24 15:16 Pulse Oximetry 98 03/17/24 15:16 Oxygen Delivery Method Room Air 03/17/24 15:16 Oxygen Flow Rate 0 03/17/24 15:16 Pain Level 0 03/17/24 15:16 Comment no pain unless standing then dizziness/nausea is 'bad'. 03/17/24 15:16 Medical Decision Making 83-year-old male presents with 3 days of nausea vomiting dizziness described as spinning, intermittent bradycardia and route and on arrival, no chest pain or shortness of breath, alert oriented cranial nerves intact no strength or sensory deficits, no appreciable ataxia no appreciable nystagmus, worse symptomatology with movement, high clinical suspicion for peripheral vertigo most also consider acute central process such as vertebrobasilar system pathology versus intracranial hemorrhage versus intracranial mass versus edema versus electrolyte derangement low suspicion for encephalitis or meningitis given history and physical, screening labs CTA head and neck trial of meclizine, basic labs EKG close reassessment 19: 24 greatly improving symptomatology patient is able to sit up with some assistance, still feeling slightly dizzy. Evidence of right ICA stenosis and possible occlusion with reconstitution, obtaining teleneurology consultation for further plans of care 20: 45 patient evaluated by telemetry neuro believes that noted stenosis on CT is unrelated to patient's symptoms, given persistent dizziness recommending MRI echocardiogram permissive hypertension. Have added dexamethasone and Ativan given initial response to meclizine with hopes that this will aid in resolution of peripheral symptoms, will admit for further diagnostic imaging to rule out central process. 21: 48 was able to speak with Dr. White of neurology at [facility] telemetry neuro, who thinks this will likely be peripheral however recommending MRI given persistent unsteadiness/ataxia. Echocardiogram can be obtained as an outpatient. Will continue with medication therapy close observation and obtain MRI in the morning. 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 currently on weight watcher's diet and has lost almost 40 lb in the last year intentionally b. denies any supplements Heart murmur (Acute) I/ Systolic Heart Murmur- First noted 05/04 Per pt. states he has had no issues regarding this, F/U up with PCP Dr. Lott BPH (benign prostatic hyperplasia) (Chronic) Probable Metabolic syndrome (Chronic) a. high triglycerides b. low HDL Gout (Chronic) Hyperlipidemia (Chronic) Hypertension (Chronic) Chronic kidney insufficiency (Chronic) a. Since at least 1998 b. baseline creatinine 1.9 Medical History Calculus of proximal right ureter Hx of fracture of ankle R ankle (mert placed) Syncope (04/15/14) Family History Mother , of hemorrhage but unknown No problems noted. Father , of heart issues No problems noted. Social History (Updated 09/12/23 @ 08:43 by Francine Jaffe) Smoking/Tobacco Use Status: Never Second Hand Exposure: No Smoking risk assessment performed?: Yes Alcohol Intake: current Alcohol Intake frequency: holidays/special occasions only Alcohol type: beer and hard liquor Drug use: Never Substance use type: does not use Adopted: No Caregiver/Support person: No Foster care: No Household members: spouse Housing: house Number of Children: 1 number of grandchildren: 1 Communication Needs: None Education Level: college Details: Associate's Degree Do you need help understanding health information?: Rarely current occupation: Retired Pets and animals: No Sexually active: Yes Do you think of yourself as: straight/heterosexual Current gender identity: male What is your relationship status?: How often do you talk on the phone with friends or family?: twice per week How often do you get together with friends or relatives?: three or more times per week Do you belong to any clubs or organized social groups?: no Panel score (0-1 are the most socially isolated patients): 2 What type of physical activity do you participate in: walking Duration: < 15 minutes/day Frequency: 5-6 times per week Beatriz/Hinduism: Spiritism Special beatriz needs: No Seatbelt use: always Helmet use: Yes Helmet use: always Drive intox or ride w/intox 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
[2024-03-17 15:38] LABS: Abs Immature Grans 0.02 10^3/uL (0.0-0.06); Absolute Basophil Count 0.05 10^3/uL (0.0-0.2); Absolute Eosinophil Count 0.32 10^3/uL (0.0-0.7); Absolute Lymphocyte Count 1.66 10^3/uL (1.2-3.4); Absolute Monocyte Count 0.56 10^3/uL (0.1-0.8); Absolute Neutrophil Count 5.19 10^3/uL (1.2-6.7); Basophils % 0.6 %; Eosinophils % 4.1 %; HGB 13.6 g/dL (13.5-17.5); Immature Grans % 0.3 %; Lymphocytes % 21.3 %; MCH 32.6 pg (27.0-33.0); MCHC 34.9 % (32.0-36.0); MCV 94 fL (80-95); MPV 9.8 fL (8.0-11.0); Monocytes % 7.2 %; Neutrophils % 66.5 %; Platelet Count 194 10^3/uL (130-400); RBC 4.17 10^6/uL (4.36-5.78); RDW 12.9 % (11.8-14.1); RDW-SD 44.2 fL
[2024-03-17 15:51] LABS: INR 1.1 (0.9-1.1); PTT Activated 25.2 sec (23.6-32.8)
[2024-03-17 16:10] LABS: ALT 19 U/L (16-63); AST 13 U/L (15-37); Albumin 3.6 g/dL (3.4-5.0); Alkaline Phosphatase 79 U/L (46-116); Anion Gap 10.6 mmol/L (3-11); BUN 20 mg/dL (7-18); Bilirubin, Total 0.61 mg/dL (0.2-1.0); CO2 24.4 mmol/L (21.0-32.0); CREATININE 1.6 mg/dL (0.70-1.30); Calcium 9.4 mg/dL (8.5-10.1); Chloride 108 mmol/L (98-107); Estimated GFR 43.02 (mL/min/1.73m2); Glucose 111 mg/dL (74-106); Magnesium 1.9 mg/dL (1.8-2.4); NT-proBNP 246 pg/mL (<300); Potassium 3.8 mmol/L (3.5-5.1); Sodium 143 mmol/L (136-145); Troponin I 22 ng/L (<or=76)
[2024-03-17] MEDS: Omnipaque 350 MG/ML 100 ML BTL 70 ML IJ (17:02)
[2024-03-17] MEDS: Normal Saline - Diluent 50 ML VIAL IJ (17:02)
[2024-03-17 17:23] LABS: Bilirubin Negative (Negative); Blood Negative (Negative); Clarity Clear (Clear); Glucose Negative (Negative); Ketones Trace mg/dL (Negative); Leukocyte Esterase Negative (Negative); Nitrite Negative (Negative); Urobilinogen 0.2 mg/dL (Up to 0.2); pH 6.5 (5-8)
[2024-03-17 18:29] LABS: Troponin I 28 ng/L (<or=76)
--- NOTE | 2024-03-17 19:21 | DI.VRAD_ITS ---
PROCEDURE INFORMATION: Exam: XR Chest Exam date and time: 03/17/2024 5:33 PM Age: 83 years old Clinical indication: Other: Dizziness, vomiting TECHNIQUE: Imaging protocol: Radiologic exam of the chest. Views: 1 view. COMPARISON: CR XR CHEST 2V PA LATERAL 02/25/2019 8:54 AM FINDINGS: Lungs: Normal. Pleural spaces: Unremarkable. No pleural effusion. No pneumothorax. Heart/Mediastinum: Normal. Bones/joints: No acute abnormality. IMPRESSION: No acute findings. Dictated and Authenticated by: Ten Brantley MD. Ordering:RYAN Butts MD
--- NOTE | 2024-03-17 19:21 | DI.VRAD_ITS ---
PROCEDURE INFORMATION: Exam: CTA Head Without And With Contrast, Arteriography Exam date and time: 03/17/2024 5:21 PM Age: 83 years old Clinical indication: Other: Dizziness, vomitting TECHNIQUE: Imaging protocol: Computed tomographic angiography of the head without and with contrast. Exam focused on the arteries. 3D rendering (Not supervised by radiologist): MIP and/or 3D reconstructed images were created by the technologist. Radiation optimization: All CT scans at this facility use at least one of these dose optimization techniques: automated exposure control; mA and/or kV adjustment per patient size (includes targeted exams where dose is matched to clinical indication); or iterative reconstruction. Contrast material: OMNI 350; Contrast volume: 70 ml; Contrast route: INTRAVENOUS (IV); COMPARISON: No relevant prior studies available. FINDINGS: ANTERIOR CIRCULATION: Right internal carotid artery: Minimal contrast flow within the petrous, cavernous, and supraclinoid segments of the right ICA, likely secondary to severe atherosclerotic plaque near the right ICA origin. Right middle cerebral artery: No occlusion or significant stenosis. No aneurysm. Right anterior cerebral artery: No occlusion or significant stenosis. No aneurysm. Left internal carotid artery: Intracranial segment is patent with no significant stenosis. No aneurysm. Left middle cerebral artery: No occlusion or significant stenosis. No aneurysm. Left anterior cerebral artery: No occlusion or significant stenosis. No aneurysm. POSTERIOR CIRCULATION: Right vertebral artery: No occlusion or significant stenosis. No aneurysm. Left vertebral artery: No occlusion or significant stenosis. No aneurysm. Basilar artery: No occlusion or significant stenosis. No aneurysm. Right posterior cerebral artery: No occlusion or significant stenosis. No aneurysm. Left posterior cerebral artery: No occlusion or significant stenosis. No aneurysm. Other arteries: Atherosclerotic vascular disease. HEAD: Brain: There is parenchymal atrophy. Periventricular and subcortical white matter areas of hypoattenuation, likely chronic small vessel ischemic change, demyelination, or gliosis. Benign right basal ganglia calcification. No intracranial mass, acute hemorrhage, or acute infarction. Cerebral ventricles: Normal. No ventriculomegaly. Bones: Unremarkable. No acute fracture. Paranasal sinuses: Visualized sinuses are normal. No fluid levels. Mastoid air cells: Visualized mastoids are normal. No mastoid effusion. Soft tissues: Unremarkable. IMPRESSION: Minimal contrast flow within the petrous, cavernous, and supraclinoid segments of the right ICA, likely secondary to severe atherosclerotic plaque near the right ICA origin. PROCEDURE INFORMATION: Exam: CTA Neck Without And With Contrast Exam date and time: 03/17/2024 5:21 PM Age: 83 years old Clinical indication: Other: Dizziness, vomitting TECHNIQUE: Imaging protocol: Computed tomographic angiography of the neck without and with contrast. Exam focused on the cervical segments of the vasculature. 3D rendering (Not supervised by radiologist): MIP and/or 3D reconstructed images were created by the technologist. Radiation optimization: All CT scans at this facility use at least one of these dose optimization techniques: automated exposure control; mA and/or kV adjustment per patient size (includes targeted exams where dose is matched to clinical indication); or iterative reconstruction. Contrast material: OMNI 350; Contrast volume: 70 ml; Contrast route: INTRAVENOUS (IV); COMPARISON: CT CHEST W 01/27/2019 11:09 AM FINDINGS: Right common carotid artery: Mixed atherosclerotic plaque within the distal right common carotid artery, causing at least 50% luminal narrowing. Right internal carotid artery: Extensive atherosclerotic plaque within the proximal right ICA, causing greater than 95% luminal narrowing (series 9, image 75). Only small amount of contrast within the remainder of the visualized right ICA to the level of the [id number]. Right external carotid artery: No occlusion or stenosis of the origin. Left common carotid artery: No stenosis. No dissection or occlusion. Left internal carotid artery: Mixed atherosclerotic plaque within the proximal left ICA, causing approximately 50% luminal narrowing (series 9, images 75-80). Left external carotid artery: No occlusion or stenosis of the origin. Right vertebral artery: Calcified atherosclerotic plaque within the distal right vertebral artery, causing greater than 75% luminal narrowing at the level of the foramen (series 9, images 111-115). Left vertebral artery: Calcified atherosclerotic plaque within the distal left vertebral artery, causing less than 50% luminal narrowing. Aorta: Mild atherosclerotic disease of the visualized thoracic aortic arch, without aneurysm or dissection. Soft tissues: Normal. No significant soft tissue swelling. Bones/joints: No acute fracture. IMPRESSION: 1. Extensive atherosclerotic plaque within the proximal right ICA, causing greater than 95% luminal narrowing (series 9, image 75). Only small amount of contrast within the remainder of the visualized right ICA to the level of the [id number]. 2. Calcified atherosclerotic plaque within the distal right vertebral artery, causing greater than 75% luminal narrowing at the level of the foramen (series 9, images 111-115). REFERENCES: NASCET CRITERIA. The degree of stenosis in the cervical segment of the internal carotid artery is based on NASCET criteria. Normal is no stenosis. Mild is less than 50% stenosis. Moderate is 50-69% stenosis. Severe is 70% to 99% stenosis. Total occlusion is no detectable patent lumen. Dictated and Authenticated by: Ten Brantley MD. Ordering:RYAN Butts MD
[2024-03-17] MEDS: Dexamethasone 10 MG/ML VIAL IVP (21:08)
[2024-03-17] MEDS: LORazepam 2 MG/ML VIAL 0.5 MG IVP (21:08)
[2024-03-18] VITALS (94 sets, daily range): BP systolic 98–221; BP diastolic 48–140; PULSE 55–93; RESP 0–28; O2SAT 92–99
[2024-03-18] MEDS: Meclizine 25 MG TAB PO (05:08)
[2024-03-18] MEDS: Lisinopril 20 MG TAB 40 MG PO (05:47)
[2024-03-18] MEDS: Lactated Ringers 1,000 ML 1000 ML IV (07:15)
--- NOTE | 2024-03-18 07:22 | W.EDPROG ---
Date of service: 03/18/24 Time of Service: 07:22 Medical Decision Making I received signout on this 83-year-old male with a history of hyperlipidemia hypertension and elevated BMI in the emergency department in the setting of dizziness. He has been evaluated by neurology. Neurology recommends MRI if positive echo and lipid panel. Will also consult PT as patient has had difficulty ambulating. Will update documentation following MRI. 10:22 AM I spoke with patient's PCP, Dr. Jace Lott. I advised him of the patient's right ICA stenosis for which neurology recommended outpatient vascular surgery consultation. Will initiate atorvastatin 40 milligrams a day and 81 mg aspirin. 11 AM Patient ambulated well with physical therapy in the emergency department using a walker. He reports having 2 walkers at home. He received vestibular physical therapy with the Augie maneuver and had resolution of his dizziness. I discussed with patient that he should return if he develops any acute weakness any falls or any chest pain. Otherwise he will be discharged with empiric trial of expectant outpatient management. I ordered outpatient physical therapy. He vomited after ambulating in the ED but was not having any abdominal pain. He received his home antihypertensives. His blood pressure improved at the time of discharge. Quality:[facility] Health Related Social Needs: Health related social needs transportation insecurity(Z59.82) Sign Out Sign Out Data: Sign Out Comment: dizziness, nausea, ataxia, seen by tele neuro, awaiting MRI in AM for dispo Last updated by Benjamín Cheng MD at 03/17/24 23:55 Sign Out Comment: Patient remained stable throughout the night. Single dose of meclizine was given in the morning when he woke up. Patient does have slight improvement of his symptoms, but not resolution. Pending MRI and reassessment. Last updated by Momo Lew DO at 03/18/24 05:10 Discharge Plan Disposition Patient Disposition: Home Discharge Details Clinical Impression: Dizziness, Carotid stenosis, right Primary Care Provider: Jace Lott ED Provider: Master Figueroa Home Meds and New Rx's Prescriptions: New atorvastatin 40 mg tablet 40 mg PO DAILY Qty: 90 0RF aspirin 81 mg capsule 81 mg PO DAILY Qty: 90 0RF Continued allopurinol 300 mg tablet 300 mg PO DAILY Qty: 90 3RF diltiazem HCl 240 mg capsule,extended release 24 hr 240 mg PO DAILY Qty: 90 3RF lisinopril 40 mg tablet 40 mg PO DAILY Qty: 90 3RF Discontinued ibuprofen [Advil] 200 mg tablet 400 mg PO Q6H PRN lovastatin 20 mg tablet 20 mg PO DAILY Qty: 90 3RF Discharge Instructions Additional Instructions: You are seen in the emergency department for your dizziness. Your MRI showed no sign of any stroke. As we discussed you do have a narrowing of one of the blood vessels in your head on the right. Your primary care provider has been notified about this finding and you will likely benefit from an outpatient consultation with vascular surgery. As we discussed please return to the emergency department if you develop any dizziness that does not stop or any weakness in any of your extremities. Otherwise please follow-up with your primary care provider later this week. Please begin taking this new medication for high cholesterol and please take 81 mg of aspirin every day. Stand Alone Forms: Physical Therapy Referral
[2024-03-18] MEDS: Ondansetron 4 MG/2 ML VIAL IVP ×2 (07:30→10:20)
[2024-03-18] MEDS: Labetalol 100 MG/20 ML VIAL 10 MG IVP (07:59)
[2024-03-18 08:07] LABS: Calculated LDL 131 mg/dL (<100); Cholesterol 196 mg/dL (<200); HDL Cholesterol 45 mg/dL (40-60); Triglyceride 101 mg/dL (<150)
--- NOTE | 2024-03-18 09:56 | PT.INIE ---
PT Notes Visit Reasons: [facility] Inpatient Initial Evaluation Date: 03/18/2024 Referring Doctor: Mary William MD PT Orders: PT CONSULT: Eval/Treat Precautions: Fall. Standard. Activity as tolerated. Patient Profile/Admitting Diagnosis: Aldo is an 83-year-old male who presented to the ED on 03/17/2024 with complaints of dizziness and difficulty with transfers as well as ambulation.? CT scan and MRI negative for posterior circulation CVA and referral was made for PT to assess for peripheral causes for vertiginous symptoms.? PMHX: All Active Problems (Updated 06/14/22 @ 11:36 by Jace Lott, DO) Diverticula of colon (Acute) Coronary artery calcification seen on CAT scan (Acute) White coat syndrome with diagnosis of hypertension (Acute) Kidney stones, calcium oxalate (Acute) Obesity, Class II, 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? currently on weight watcher's diet and has lost almost 40 lb in the last year intentionally b.? denies any supplementsHeart murmur (Acute) I/ Systolic Heart Murmur- First noted 05/04 ? Per pt. states he has had no issues regarding this, F/U up with PCP Dr. Lott BPH (benign prostatic hyperplasia) (Chronic) ProbableMetabolic syndrome (Chronic) ? a.? high triglycerides ? b.? low HDLGout (Chronic) Hyperlipidemia (Chronic) Hypertension (Chronic) Chronic kidney insufficiency (Chronic) ? a.? Since at least 1998 ? b.? baseline creatinine 1.9 Medical History Calculus of proximal right ureter Hx of fracture of ankle R ankle (mert placed)Syncope (04/15/14) Social History/Home Situation: Lives with in a private home with 4 steps to enter.? Independent with all aspects of ADLs prior to surgery.? Still drives. Equipment Owned/DME: [facility] SUBJECTIVE: Stated that he felt ill Kristian night and could not sit up nor stand up the following morning to go to the bathroom due to severe dizziness.? He has had dizziness since onset Monday. ?Onset: ?03/16/2024Monday when he tried standing up from bed ?Quality: Room-spinning dizziness worse with sitting up ?Duration: ?Continuous since Monday ?Previous Episodes: None ?Exacerbating Factors: Positional change, worse with supine<>sit ?Headache: None ?Neck ache: Mild neck pain on R that did not limit neck movement ?Nausea/Vomitting: nauseous throughout session; One episode of vomiting after walking about 40 feet with FWW ?Hearing Loss: None ?Tinnitus: None ?Fullness in Ear: None ?Imbalance: Sensation of being off-balance on initial standing up but subsided with walking ?Red Flags: ? Visual changes: None ? Dysphagia or Dysarthria: None ? Facial Weakness: None ? Incoordination: None ?Prior Level of Function: ?Independent with all ADLs ?Current Level of Function: ?Hesitant about sitting up and standing up due to symptoms;? unsure about how he will do with walking ?Previous Treatment: ?No previous vestibular rehab ?OBJECTIVE: ?Posture: Good upright posturing ?Observation: Highly guarded movements, with limited head motions during gait, transfers and bed mobility ?Mental Status: A and O x 4 ?Vital Signs: BP 200/95 right before James-Hallpike maneuver ?ROM: Cervical ROM: WFL with minimal soreness at end range of L cervical rotation Right Upper Extremity: Shoulder Flexion lacks the last 25% of AROM. Shoulder abduction lacks the last 25% of AROM. Elbow flexion WFL. Wrist flexion WFL. Functional opening and closing of hand WFL. Left Upper Extremity: Shoulder Flexion lacks the last 25% of AROM. Shoulder abduction lacks the last 25% of AROM. Elbow flexion WFL. Wrist flexion WFL. Functional opening and closing of hand WFL. Right Lower Extremity: Hip flexion lacks the last 25% of AROM. Hip abduction WFL. Knee flexion 20 degrees to 100 degrees. Knee extension -20 degrees. Ankle dorsiflexion to neutral only. Ankle plantarflexion WFL. Left Lower Extremity: Hip flexion lacks the last 25% of AROM. Hip abduction WFL. Knee flexion 20 degrees to 100 degrees. Knee extension -20 degrees. Ankle dorsiflexion to neutral only. Ankle plantarflexion WFL. ?STRENGTH: Cervical muscle strength: 4/5 Right Upper Extremity: Shoulder flexors 3-/5. Shoulder abductors 3-/5. Elbow flexors 5/5. Elbow extensors 5/5. High School Music Teacher strong. Left Upper Extremity: Shoulder flexors 3-/5. Shoulder abductors 3-/5. Elbow flexors 5/5. Elbow extensors 5/5. High School Music Teacher strong. Right Lower Extremity: Hip flexors 3-/5. Hip abductors 4-/5. Knee flexors 4/5. Knee extensors 3-/5. Ankle dorsiflexors 3-/5. Ankle plantarflexors 4/5. Left Lower Extremity:Hip flexors 3-/5. Hip abductors 4-/5. Knee flexors 4/5. Knee extensors 3-/5. Ankle dorsiflexors 3-/5. Ankle plantarflexors 4/5. BED MOBILITY/TRANSFERS: ?Minimal cueing provided for use of B hands as needed for support,? movement sequence,? AD management,? and posture to reduce fall risk and minimize pain report ?Rolling contact guard assist. ?Supine to sit contact guard assist ?Sit to supine contact guard assist ?Sit to stand contact guard assist ?Stand to sit contact guard assist GAIT: After James-Hallpike maneuver and R Zamzam maneuver,? patient was agreeable to trying gout sitting and walking.? He was able to cover about 40 feet using front-wheeled walker but with very hesitant steps initially and then became more confident when he realized that his dizziness has resolved.? Margoth slowed.? Contact guard assist of PT and stand by assist of DEVON West for safety.? Head movement diminished,? margoth decreased,? directional change with discontinuous steps.? Patient vomited copiously as soon as he was assisted back onto bed. Dr Figueroa notified of patient response. ?Special Tests: ? Rhomberg: Minimal posterior sway but no LOB ? Coordination: Intact ? Fine Motor: Intact ? Visual Tracking: Decrease in smooth pursuit with return to midline from left gaze ? Head Thrust: Some catchup? saccade noted with head thrust to R ? James-Halpike: Left upbeating/torsional nystagmus of <2 minutes with R [place] hallpike with increased spinning sensation reported but no vomitting upon ? sitting back up ? Supine Roll Test: Negative Balance: ?Static Sitting: Fair ?Dynamic Sitting: Fair ?Static Standing: Fair ?Dynamic Standing: Fair Special Tests: ?Mobility Limitations Standardized Measure ?[facility] 6 clicks Basic Mobility Inpatient Short Form: ?Raw Score: 18 CMS Score: 47% deficit Informed Consent/Education: Patient was instructed in purpose of PT consult and plan of care. Agreeable to proceed with performance of R Zamzam maneuver for this session. NEURO RE-ED: ?-Gaze stabilization exercises with good response ?-R Zamzam maneuver performance and patient education/training with partial resolution of symptoms. THERA ACT: Patient guided with safe performance of level surface short distance ambulation using the front-wheeled walker requiring contact guard assist and minimal verbal cueing for safe directional changes,? movement transition,? and AD management. ASSESSMENT: RIGHT POSTERIOR CANAL CANALITHIASIS for which the R Zamzam was done x1 as patient became very symptomatic. Patient was advised another Zamzam maneuver and patient education session will be conducted before he discharges this afternoon to which he was agreeable.? He wanted to rest until then.? Patient presents with clinical signs and symptoms consistent with current/admitting diagnoses that have resulted to mobility limitations, gait instability, generalized weakness, and overall ADL decline as demonstrated by the following impairment level findings: ?1. Impaired sitting/standing balance ?2. Impaired activity tolerance ?3. Sensation of spinning with positional change ?Impairments are contributing to the following functional limitations: ?1. Increased completion time for mobility ADL performance ?2. Increased risk for falls ?Patient is assessed as a 08356 moderate complexity based on the following History: Aldo is an 83-year-old male who presented to the ED on 03/17/2024 with complaints of dizziness and difficulty with transfers as well as ambulation.? CT scan and MRI negative for posterior circulation CVA and referral was made for PT to assess for peripheral causes for vertiginous symptoms.? ?Examination: Demonstrable impairment above ?Presentation: Evolving ?Decision Makin moderate complexity ?Goals: 1.? Patient will demonstrate good mastery of R Zamzam performance and gaze stabilization exercises for home . Plan of Care/Treatment Plan Plan to see patient for a second time for patient education and training of R Zamzam maneuver performance as well as gaze stabilization exerciss. 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 [] SNF for continued rehabilitation [] ?[] Upholstery Parts Sorter Care [] ?[] SNF versus LTC based on ability to participate and progress [] ?TREATMENT CODE/TIME: ?34013 x 25 minutes for 1 unit, 38425 x 44 minutes for 1 unit beginning at 14:09 PM. ?Thank you for the opportunity to participate in the care of this patient. ?Angela Austin PT, DPT, CLT ?[facility] ?[facility] ?[place], [place]
[2024-03-18] MEDS: Aspirin 81 MG CHEW PO (10:20)
--- NOTE | 2024-03-18 11:35 | PTTR_ITS ---
PT Notes Visit Reasons: [facility] Inpatient Initial Evaluation Date: 03/18/2024 Referring Doctor: Master Figueroa MD PT Orders: PT CONSULT: Eval/Treat Precautions: Fall. Standard. Activity as tolerated. Patient Profile/Admitting Diagnosis: Aldo is an 83-year-old male who presented to the ED on 03/17/2024 with complaints of dizziness and difficulty with transfers as well as ambulation. CT scan and MRI negative for posterior circulation CVA and referral was made for PT to assess for peripheral causes for vertiginous symptoms. PMHX: All Active Problems (Updated 06/14/22 @ 11:36 by Jace Lott DO) Diverticula of colon (Acute) Coronary artery calcification seen on CAT scan (Acute) White coat syndrome with diagnosis of hypertension (Acute) Kidney stones, calcium oxalate (Acute) Obesity, Class II, 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 currently on weight watcher's diet and has lost almost 40 lb in the last year intentionally b. denies any supplementsHeart murmur (Acute) I/ Systolic Heart Murmur- First noted 05/04 Per pt. states he has had no issues regarding this, F/U up with PCP Dr. Lott BPH (benign prostatic hyperplasia) (Chronic) ProbableMetabolic syndrome (Chronic) a. high triglycerides b. low HDLGout (Chronic) Hyperlipidemia (Chronic) Hypertension (Chronic) Chronic kidney insufficiency (Chronic) a. Since at least 1998 b. baseline creatinine 1.9 Medical History Calculus of proximal right ureter Hx of fracture of ankle R ankle (mert placed)Syncope (04/15/14) Social History/Home Situation: Lives with in a private home with 4 steps to enter. Independent with all aspects of ADLs prior to surgery. Still drives. Equipment Owned/DME: [facility] Subjective: Stated that he felt ill Monday night and could not sit up nor stand up the following morning to go to the bathroom due to severe dizziness. He has had dizziness since onset Monday. Onset: ?03/16/2024Monday morning when he tried standing up from bed Quality: Room-spinning dizziness worse with sitting up Duration: ?Continuous since Monday Previous Episodes: None Exacerbating Factors: Positional change, worse with supine<>sit Headache: None Neck ache: Mild neck pain on R that did not limit neck movement Nausea/Vomitting: nauseous throughout session; One episode of vomiting after walking about 40 feet with FWW Hearing Loss: None Tinnitus: None Fullness in Ear: None Imbalance: Sensation of being off-balance on initial standing up but subsided with walking Red Flags: ? Visual changes: None ? Dysphagia or Dysarthria: None ? Facial Weakness: None ? Incoordination: None Prior Level of Function: Independent with all ADLs Current Level of Function: Hesitant about sitting up and standing up due to symptoms; unsure about how he will do with walking Previous Treatment: No previous vestibular rehab OBJECTIVE: Posture: Good upright posturing Observation: Highly guarded movements, with limited head motions during gait, transfers and bed mobility Mental Status: A and O x 4 Vital Signs: BP 200/95 right before James-Hallpike maneuver ROM: Cervical ROM: WFL with minimal soreness at end range of L cervical rotation Strength: Cervical muscle strength: 4/5 Bed Mobility/Transfers: Minimal cueing provided for use of B hands as needed for support, movement sequence, AD management, and posture to reduce fall risk and minimize pain report Rolling contact guard assist. Supine to sit contact guard assist Sit to supine contact guard assist Sit to stand contact guard assist Stand to sit contact guard assist Gait: After James-Hallpike maneuver and R Zamzam maneuver, patient was agreeable to trying gout sitting and walking. He was able to cover about 40 feet using front-wheeled walker but with very hesitant steps initially and then became more confident when he realized that his dizziness has resolved. Margoth slowed. Contact guard assist of PT and stand by assist of DEVON West for safety. Head movement diminished, margoth decreased, directional change with discontinuous steps. Patient vomited copiously as soon as he was assisted back onto bed. Dr Figueroa notified of patient response. Special Tests: ? Rhomberg: Minimal posterior sway but no LOB ? Coordination: Intact ? Fine Motor: Intact ? Visual Tracking: Decrease in smooth pursuit with return to midline from left gaze ? Head Thrust: Some catchup saccade noted with head thrust to R ? [place]-Halpike: Left upbeating/torsional nystagmus of <2 minutes with R [place] hallpike with increased spinning sensation reported but no vomitting upon sitting back up ? Supine Roll Test: Negative Balance: Static Sitting: Fair Dynamic Sitting: Fair Static Standing: Fair Dynamic Standing: Fair Special Tests: Mobility Limitations Standardized Measure [facility] 6 clicks Basic Mobility Inpatient Short Form: Raw Score: 18 CMS Score: 47% deficit Informed Consent/Education: Patient was instructed in purpose of PT consult and plan of care. Agreeable to proceed with performance of R Zamzam maneuver for this session. NEURO RE-ED: -Gaze stabilization exercises with good response -R Zamzam maneuver performance and patient education/training with partial resolution of symptoms. THERA ACT: Patient guided with safe performance of level surface short distance ambulation using the front-wheeled walker requiring contact guard assist and minimal verbal cueing for safe directional changes, movement transition, and AD management. ASSESSMENT: RIGHT POSTERIOR CANAL CANALITHIASIS for which the R Zamzam was done x1 as patient became very symptomatic. Patient was advised another Zamzam maneuver and patient education session will be conducted before he discharges this afternoon to which he was agreeable. He wanted to rest until then. Patient presents with clinical signs and symptoms consistent with current/admitting diagnoses that have resulted to mobility limitations, gait instability, generalized weakness, and overall ADL decline as demonstrated by the following impairment level findings: 1. Impaired sitting/standing balance 2. Impaired activity tolerance 3. Sensation of spinning with positional change Impairments are contributing to the following functional limitations: 1. Increased completion time for mobility ADL performance 2. Increased risk for falls Patient is assessed as a 26466 moderate complexity based on the following: History: Aldo is an 83-year-old male who presented to the ED on 03/17/2024 with complaints of dizziness and difficulty with transfers as well as ambulation. CT scan and MRI negative for posterior circulation CVA and referral was made for PT to assess for peripheral causes for vertiginous symptoms. Examination: Demonstrable impairment above Presentation: Evolving Decision Makin moderate complexity Goals: 1. Patient will demonstrate good mastery of R Zamzam performance and gaze stabilization exercises for home . Plan of Care/Treatment Plan: Plan to see patient for a second time for patient education and training of R Zamzam maneuver performance as well as gaze stabilization exerciss. 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 [] SNF for continued rehabilitation [] [] Graduate Teacher Education Care [] [] SNF versus LTC based on ability to participate and progress [] TREATMENT CODE/TIME: 41172 x 20 minutes for 1 unit, 49190 x 16 minutes for 1 unit beginning at 14:09 PM. Thank you for the opportunity to participate in the care of this patient. Angela Austin PT, DPT, CLT [facility] [place], [place]
[2024-03-18] MEDS: Atorvastatin 40 MG TAB PO (11:53)
[2024-03-18] MEDS: dilTIAZem CD 120 MG CAPCR 240 MG PO (11:53)
--- NOTE | 2024-03-18 23:56 | DI.MRI_ITS ---
Exam(s) MR BRAIN WO EXAM: MR BRAIN WO CLINICAL HISTORY: persistant dizziness ataxia TECHNIQUE: Multiplanar multisequence MRI of the brain was performed. COMPARISON: CT CT BRAIN NECK CTA from 03/17/2024 FINDINGS: CEREBRAL PARENCHYMA: There is no evidence of intracranial hemorrhage, mass effect, or shift of midline structures. There are no extra-axial fluid collections. Ventricles are not enlarged or shifted. There is no significant focal signal abnormality in the cerebellar hemispheres nor within the ronda, m idbrain, and thalami. There is no abnormal signal abnormality in the periventricular white matter. There is no significant focal signal abnormality evident on diffusion imaging to suggest acute ischem ic event. PITUITARY GLAND: No mass nor parasellar abnormality. No obvious abnormality in the cavernous sinuses. FLOW VOIDS: Lack of normal flow void noted in the right internal carotid artery at the skull base/int racavernous. Appears to be reconstituted at supraclinoid aspect of the right ICA. Left ICA flow voi d appears patent. PARANASAL SINUSES: The visualized paranasal sinuses appear unremarkable. No obvious finding ORBITS: No obvious findings. IMPRESSION: No areas of restricted diffusion to suggest acute infarct, given the findings on the recent CTA study . No evidence of intracranial hemorrhage. Discussed by phone with ER physician 03/18/2024 at 10:05 a.m. DATA REPOSITORY:
== END 2024-03-18 12:12 | disposition home or self-care (01) ==
PROVIDERS: Emergency Medicine; Emergency Provider Emergency Medicine; PCP Family Medicine
DX: R42 Dizziness and giddiness (principal); R11.0 Nausea; I10 Essential (primary) hypertension; E78.5 Hyperlipidemia, unspecified; I45.2 Bifascicular block
CPT/HCPCS: 00123; 36415; 70496; 70498; 80053; 80061; 93005; 96374; 96375; 96376; 97112; 97162; 99285; 70551; 71045; 81003; 83735; 83880; 84484; 85025; 85610; 85730; 93010; J1100; J1920; J2060; J2405; J3490

== ENCOUNTER 2024-08-26 12:56 | Inpatient (IN) | payer MEDICARE, SELFPAY ==
[2024-08-26] VITALS (64 sets, daily range): BP systolic 130–207; BP diastolic 34–100; PULSE 44–65; RESP 12–36; TEMP 36.5; O2SAT 94–100
--- NOTE | 2024-08-26 12:45 | RT.EKG_ITS ---
APPROVED REPORT Exam: Resting ECG Reason for Exam: Dizzyness Patient Location: E HR:50 bpm ECG Measurements Heart Rate 50 AXIS UT 206 P 16 QRSd 138 QRS -44 QT 452 T 23 QTc 413 Conclusion Sinus bradycardia...rate< 60 RBBB and LAFB...QRSd >120mS, axis(-40,240) No STEMI
--- NOTE | 2024-08-26 12:51 | W.ED.GENAD ---
Discharge Plan Disposition Patient Disposition: Home Discharge Details Clinical Impression: Dizziness, Carotid artery plaque Primary Care Provider: Jace Lott ED Provider: Master Figueroa Home Meds and New Rx's Prescriptions: New meclizine 25 mg tablet 25 mg PO BID PRNQty: 14 0RF Continued allopurinol 300 mg tablet 300 mg PO DAILY Qty: 90 3RF diltiazem HCl 240 mg capsule,extended release 24 hr 240 mg PO DAILY Qty: 90 3RF lisinopril 40 mg tablet 40 mg PO DAILY Qty: 90 3RF atorvastatin 40 mg tablet 40 mg PO DAILY Qty: 90 0RF aspirin 81 mg capsule 81 mg PO DAILY Qty: 90 0RF Discharge Instructions Instructions: Vertigo (a type of dizziness) Additional Instructions: You were seen in the emergency department for your dizziness. Your MRI showed no sign of any strokes. Please follow-up with your primary care provider as you do have some plaques of cholesterol buildup in your carotid arteries. If you begin vomiting and does not stop or if you develop headache please return to the emergency department. The neurologist made no recommendations to change any of your medications. You may try this medication to treat your dizziness. HPI General Date/Time Provider Initiated Documentation: 08/26/24 13:03. HPI Narrative: MDM This is an uncomfortable appearing [ ] and nontachycardic 84-year-old male with vascular risk factors and dizziness concerning for possibility of CVA for which patient will undergo neurological consultation following CT angiogram of the patient's head and neck. No pain on proportion to suggest necrotizing soft tissue infection. No tonic-clonic activity to suggest seizure no indication for EEG. No nuchal rigidity or fever so my suspicion is low for meningitis I did not feel the patient requires a lumbar puncture. No recent chiropractic manipulation to suggest increased risk for cervical arterial dissection. No chest pain to suggest aortic dissection. Patient is reportedly having hematuria so we will obtain urinalysis and send type and screen. Will monitor patient in the ED and check basic labs. His ECG is nonischemic and shows a sinus bradycardia with a bifascicular block. Will monitor patient on telemetry in the event that his dizziness is secondary to dysrhythmias. 2:25 PM Reassuring initial troponin. Comprehensive metabolic panel showing very mild hyper calcium [place]inee. No FATUMA. Mild anion gap. Normal bicarbonate. Not consistent with DKA. Normal reassuring magnesium. CBC lacks anemia thrombocytopenia leukocytosis. 4:45 PM I met with the patient again. His dizziness had resolved. He still needs to ambulate and is pending a urinalysis given reported hematuria. We discussed whether or not to perform a James-Hallpike. I advised that this could trigger his dizziness again. He elected to defer [place]-Hallpike at this point in time. Neurology made no mention of changing any of his medications. I signed patient out to Dr. Benites pending urinalysis and ambulatory trial. Chronic conditions affecting the care of the patient: Hypertension hyperlipidemia History obtained from an outside historian: Paramedics External record review: [facility] [place] Diagnostic interpretations performed by me: Per my independent interpretation chest x-ray shows: No acute cardiopulmonary process Per my independent interpretation EKG shows: Sinus bradycardia bifascicular block. ]Medications: Meclizine Social determinants of health affecting disposition: N/A Management discussed with: Neurology Treatment/interventions considered: N/A Response to therapies provided: N/A HPI This is an 84-year-old male with history of hypertension hyperlipidemia prior history of vertigo right emergency department via EMS in the setting of dizziness for the past 2 days causing him to have decreased p.o. intake. He reportedly had blood in his urine this morning. He vomited twice this morning. He denies recent generator exposure or recent chiropractic manipulation. He is nauseous but has not had a headache. He denies anticoagulation fevers dysuria and frequency. No recent falls. Exam General: Uncomfortable-appearing in no acute distress speaking in complete sentences. Head: Normocephalic, atraumatic. Eye:[Pupils equal, round reactive to light.] Extraocular eye movements intact. No conjunctival injection. No scleral icterus. Ear, nose, mouth, throat: Grossly normal inspection. Normal voice, handling secretions normally. Neck: Trachea midline. Cardiovascular: Well-perfused distal extremities. Slow rate. Respiratory: Nonlabored respiration. Clear lungs. Gastrointestinal: Nondistended abdomen. Soft abdomen. Musculoskeletal: No edema. Moving all 4 extremities spontaneously. Skin: Normal for age and race, grossly normal temperature and turgor. No acute rash. Neurologic: Alert and appropriate, no apparent acute deficits. Cranial nerves II through XII intact grossly. No dysmetria. No dysdiadochokinesia. No truncal ataxia. GCS 15. Romberg deferred. Psychiatric: Mood and manner are appropriate. Grooming and personal hygiene are appropriate. Related Data Home Medications ?Medication ?Instructions ?Recorded ?Confirmed allopurinol 300 mg tablet 300 mg PO DAILY #90 tabs 01/22/24 08/26/24 diltiazem HCl 240 mg capsule,24 240 mg PO DAILY #90 tabs 01/22/24 08/26/24 hr,extended release lisinopril 40 mg tablet 40 mg PO DAILY #90 tabs 01/22/24 08/26/24 aspirin 81 mg capsule 81 mg PO DAILY #90 caps 03/18/24 08/26/24 atorvastatin 40 mg tablet 40 mg PO DAILY #90 tabs 03/18/24 08/26/24 meclizine 25 mg tablet 25 mg PO BID PRN #14 tabs 08/26/24 Previous Rx's ?Medication ?Instructions ?Recorded allopurinol 300 mg tablet 300 mg PO DAILY #90 tabs 01/22/24 diltiazem HCl 240 mg capsule,24 240 mg PO DAILY #90 tabs 01/22/24 hr,extended release lisinopril 40 mg tablet 40 mg PO DAILY #90 tabs 01/22/24 aspirin 81 mg capsule 81 mg PO DAILY #90 caps 03/18/24 atorvastatin 40 mg tablet 40 mg PO DAILY #90 tabs 03/18/24 meclizine 25 mg tablet 25 mg PO BID PRN #14 tabs 08/26/24 Allergies Allergy/AdvReac Type Severity Reaction Status Date / Time seasonal Allergy Mild Nasal Uncoded 08/26/24 13:03 congestion General COREY: 3 Medical Decision Making Quality:SDOH Health Related Social Needs: No Data to Display PFSH All Active Problems (Updated 08/26/24 @ 16:50 by Master Figueroa MD) Carotid artery plaque (Acute) Dizziness (Acute) Diverticula of colon (Acute) Coronary artery calcification seen on CAT scan (Acute) White coat syndrome with diagnosis of hypertension (Acute) Kidney stones, calcium oxalate (Acute) Obesity, Class II, 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 currently on weight watcher's diet and has lost almost 40 lb in the last year intentionally b. denies any supplements Heart murmur (Acute) I/ Systolic Heart Murmur- First noted 05/04 Per pt. states he has had no issues regarding this, F/U up with PCP Dr. Lott BPH (benign prostatic hyperplasia) (Chronic) Probable Metabolic syndrome (Chronic) a. high triglycerides b. low HDL Gout (Chronic) Hyperlipidemia (Chronic) Hypertension (Chronic) Chronic kidney insufficiency (Chronic) a. Since at least 1998 b. baseline creatinine 1.9 Medical History Calculus of proximal right ureter Hx of fracture of ankle R ankle (mert placed) Syncope (04/15/14) Family History Mother , of hemorrhage but unknown No problems noted. Father , of heart issues No problems noted. Social History (Updated 09/12/23 @ 08:43 by Francine Jaffe) Smoking/Tobacco Use Status: Never Second Hand Exposure: No Smoking risk assessment performed?: Yes Alcohol Intake: current Alcohol Intake frequency: holidays/special occasions only Alcohol type: beer and hard liquor Drug use: Never Substance use type: does not use Adopted: No Caregiver/Support person: No Foster care: No Household members: spouse Housing: house Number of Children: 1 number of grandchildren: 1 Communication Needs: None Education Level: college Details: Associate's Degree Do you need help understanding health information?: Rarely current occupation: Retired Pets and animals: No Sexually active: Yes Do you think of yourself as: straight/heterosexual Current gender identity: male What is your relationship status?: How often do you talk on the phone with friends or family?: twice per week How often do you get together with friends or relatives?: three or more times per week Do you belong to any clubs or organized social groups?: no Panel score (0-1 are the most socially isolated patients): 2 What type of physical activity do you participate in: walking Duration: < 15 minutes/day Frequency: 5-6 times per week Beatriz/Judaism: Cheondoism Special beatriz needs: No Seatbelt use: always Helmet use: Yes Helmet use: always Drive intox or ride w/intox stake driver: No Working smoke detector in home: Yes Carbon monox detector in home: Yes Do you feel safe at home: Yes Do you feel safe in your relationship?: Yes
--- NOTE | 2024-08-26 13:00 | DI.CT_ITS ---
Exam(s) CT BRAIN NECK CTA EXAM: CT BRAIN NECK CTA CLINICAL HISTORY: Dizziness. TECHNIQUE: Imaging Protocol: Axial CT angiography was performed with multi-slice acquisition and mu lti-planar and/or 3D reconstructions. CONTRAST MATERIAL: Intravenous: Omnipaque 350 Contrast volume:70 mL COMPARISON: CT CT BRAIN NECK CTA from 03/17/2024 FINDINGS: CTA Neck W: Aortic arch anatomy: The aortic arch anatomy is conventional and there is no significant stenosis at the origin of the great vessels off of the aortic arch. No intimal flap evident. Anterior circulation: There is mild-moderate stenosis at the origin of the right common carotid artery off of the brachioce phalic trunk. Otherwise both common carotid arteries are again noted to ascend with normal luminal d iameters. On the right side there is heavily calcified plaque at the carotid bifurcation and proximal right ICA with a critical stenosis at this level again noted (over 90 percent). Some flow is seen in the righ t ICA in the upper neck and face between the skull base-carotid canal. On the opposite-left side there is some partially calcified plaque again noted at the carotid bifurc ation and proximal left ICA with approximately 60 percent stenosis at this level again noted. Flow i n the left ICA above this level in the upper neck appears patent but the upper left ICA in the upper neck is tortuous, similar to previous. The left ICA is patent in the skull base-carotid canal. Posterior circulation: Both vertebral arteries originate in conventional fashion off of the subclavian arteries and there is no obvious stenosis at the origin of the vertebral arteries. Both vertebral arteries exhibit normal luminal diameters within the foramen transversarium. There is nonocclusive calcified plaque in both vertebral arteries at the skull base again noted. Both vertebral arteries contribute to the formation of the basilar artery at the skull base. CTA Brain W: Anterior circulation: Both intra cavernous internal carotid arteries are peripherally calcified. The right ICA is again no miroslava to be occluded within the cavernous sinus. As was previously the case, the right supraclinoid IC A is reconstituted by flow across the anterior communicating artery from the patent left side. The left intra cavernous internal carotid artery is patent. Both A1 segments are patent as is the an terior communicating artery. There is most probably retrograde flow in the right A1 segment, from th e left-side across the anterior communicating artery, this feeding the right middle cerebral artery. There is no aneurysm at the level the anterior communicating artery. The anterior cerebral arteries appear patent. Both middle cerebral arteries are patent with no evidence of significant stenosis nor intraluminal th rombus. There also no aneurysms of these vessels. Posterior circulation: The basilar artery ascends in the midline. Distally it gives off patent bilateral superior cerebella r arteries. Above this level the basilar artery terminates as patent bilateral posterior cerebral arteries. Again noted is a posterior communicating artery on the right side of the [id number] adding to f low in the right [employer]. There is no evidence of aneurysm at the tip of the basilar artery nor elsewhere in the [id number] is. CT BRAIN: There is no evidence of intracranial hemorrhage, mass effect, or shift of midline structures. There are no extra-axial fluid collections. Ventricles are not enlarged or shifted. There are no ring enh ancing lesions in the brain and no abnormal meningeal enhancement. IMPRESSION: 1. Findings are similar to the recent CTA study of 03/17/2024. Again noted is significant plaque at t he carotid arteries on both sides the neck with critical stenosis on the right side at the carotid bi furcation-proximal right ICA with a thin flow column demonstrate above this level. The right intra c avernous internal carotid arteries again noted to be occluded with reconstitution of the right suprac linoid ICA via retrograde flow from the patent left side via the anterior communicating artery. The amount of stenosis at the level the plaque in the left carotid bulb-proximal left ICA is approximatel y 60 percent, unchanged. 2. Both vertebral arteries are again noted to be patent although both again exhibit calcified plaque at the level the skull base. Both vertebral arteries are demonstrated to contribute to the formatio n of the basilar artery at the skull base. 3. No evidence of obvious territorial infarct nor lacunar infarct. No intracranial hemorrhage. No ring enhancing lesions in the brain. 4. Recommend follow-up MRI with diffusion imaging Called by myself to ER 08/26/2024 at 2:48 p.m. RADIATION DOSE DELIVERED: 2,317.42mGy.cm Total DLP DATA REPOSITORY: All CT scans at this facility are submitted to the National Radiology Data Registry (NRDR) Dose Index Registry (DIR) with the [employer] (ACR). RADIATION OPTIMIZATION: All CT scans at this facility use at least one of these dose optimization te chniques: automated exposure control; mA and/or kV adjustment per patient size (includes targeted exa ms where dose is matched to clinical indication); or iterative reconstruction.
[2024-08-26 13:27] LABS: Abs Immature Grans 0.02 10^3/uL (0.0-0.06); Absolute Basophil Count 0.08 10^3/uL (0.0-0.2); Absolute Eosinophil Count 0.25 10^3/uL (0.0-0.7); Absolute Lymphocyte Count 1.58 10^3/uL (1.2-3.4); Absolute Monocyte Count 0.49 10^3/uL (0.1-0.8); Basophils % 1.1 %; Eosinophils % 3.5 %; HCT 45.6 % (40.0-50.0); HGB 15.7 g/dL (13.5-17.5); Immature Grans % 0.3 %; Lymphocytes % 21.9 %; MCH 31.3 pg (27.0-33.0); MCHC 34.4 % (32.0-36.0); MCV 91 fL (80-95); MPV 9.6 fL (8.0-11.0); Monocytes % 6.8 %; Neutrophils % 66.4 %; Platelet Count 220 10^3/uL (130-400); RBC 5.02 10^6/uL (4.36-5.78); RDW 13.2 % (11.8-14.1); WBC 7.22 10^3/uL (4.4-10.8)
[2024-08-26] MEDS: Meclizine 25 MG TAB PO ×2 (13:33→17:40)
[2024-08-26] MEDS: Normal Saline 500 ML 1000 ML IV (13:34)
[2024-08-26 13:49] LABS: ALT 22 U/L (16-63); AST 13 U/L (15-37); Alkaline Phosphatase 108 U/L (46-116); Anion Gap 13.4 mmol/L (3-11); BUN 22 mg/dL (7-18); Bilirubin, Total 0.9 mg/dL (0.2-1.0); CO2 25.6 mmol/L (21.0-32.0); CREATININE 1.8 mg/dL (0.70-1.30); Calcium 10.6 mg/dL (8.5-10.1); Chloride 102 mmol/L (98-107); Estimated GFR 37.12 (mL/min/1.73m2); Glucose 134 mg/dL (74-106); Magnesium 1.9 mg/dL; Potassium 4.2 mmol/L (3.5-5.1); Sodium 141 mmol/L (136-145); Total Protein 7.6 g/dL (6.4-8.2); Troponin I 35 ng/L (<or=76)
[2024-08-26] MEDS: Omnipaque 350 MG/ML 100 ML BTL 70 ML IJ (13:56)
[2024-08-26] MEDS: Normal Saline - Diluent 50 ML VIAL IJ (13:56)
--- NOTE | 2024-08-26 14:17 | DI.RAD_ITS ---
Exam(s) XR CHEST 1V IN DI DEPT EXAM: XR CHEST 1V IN DI DEPT CLINICAL HISTORY: Dizziness. TECHNIQUE: 2D digital imaging was performed. COMPARISON: CR,XR XR CHEST 1V IN DI DEPT from 03/17/2024 FINDINGS: Single AP portable view. Heart size is upper normal. The mediastinum is not widened. Lungs are clear. No infiltrates nor obvious pleural effusions. IMPRESSION: No acute pulmonary findings on this single AP portable view of the chest. DATA REPOSITORY: RADIATION DOSE DELIVERED:
[2024-08-26 15:20] LABS: Troponin I 38 ng/L (<or=76)
[2024-08-26] MEDS: Midazolam 2 MG/2 ML VIAL 1 MG IVP (15:21)
--- NOTE | 2024-08-26 16:00 | DI.MRI_ITS ---
Exam(s) MR BRAIN WO EXAM: MR BRAIN WO CLINICAL HISTORY: dizzy TECHNIQUE: Multiplanar multisequence MRI of the brain was performed. COMPARISON: MR MR BRAIN WO from 03/18/2024 FINDINGS: Images are somewhat degraded by motion artifact. CEREBRAL PARENCHYMA: There is no evidence of intracranial hemorrhage, mass effect, or shift of midline structures. There are no extra-axial fluid collections. Ventricles are not enlarged or shifted. There is no significant focal signal abnormality in the cerebellar hemispheres nor within the ronda, m idbrain, and thalami. There is no abnormal signal abnormality in the periventricular white matter. There is no significant focal signal abnormality evident on diffusion imaging to suggest acute ischem ic event. FLOW VOIDS: Again noted is lack of normal flow void in the intra cavernous right internal carotid art du consistent with occlusion at this level. This is similar to previous. Flow signal in the right middle cerebral arteries reconstituted in the supraclinoid right ICA most probably related to retrogr rudi flow through the anterior communicating artery from the opposite-left side. The intracavernous l eft internal carotid artery exhibits normal flow signal. PITUITARY GLAND: No mass nor parasellar abnormality. No obvious abnormality in the cavernous sinuses. PARANASAL SINUSES: The visualized paranasal sinuses appear unremarkable. No obvious finding ORBITS: No obvious findings. IMPRESSION: No significant change compared to MRI scan of 03/18/2024. Again noted is occlusion of the right internal carotid artery at the skull base level with reconstitu tion of flow at the level the supraclinoid right ICA, this by retrograde flow across the anterior com municating artery from the opposite-left side. No abnormal white matter signal. No restricted diffusion to suggest acute territorial nor acute lacu ne are infarct. Findings called by myself to ER physician 08/26/2024 at 3:57 p.m. DATA REPOSITORY:
[2024-08-26] MEDS: Normal Saline 250 ML 500 ML IV (17:54)
--- NOTE | 2024-08-26 19:05 | W.PM.HP.N ---
Date of service: 08/26/24 Time of Service: 19:06 Assessment and Plan Assessment and plan (1) Vertigo: Start date: 08/26/24 Status: Chronic Assessment and plan: This is an 84-year-old gentleman with recurrent peripheral vertigo though he does have significant carotid artery disease which appears stable. He has had no evidence of stroke with CT of the head and neck and MRI of the brain. He will be continued on meclizine for symptomatic care with PT and OT to see patient for evaluation to instruct again on vertigo exercises. Long-term he can follow-up with neurology as an outpatient. He is a full code. (2) Carotid artery stenosis without cerebral infarction: Status: Chronic Assessment and plan: Stable at 90% on the right and 60% on the left with no intervention recommended by teleneurology at this time. If recurrent neurological symptoms, should consider at least vascular surgery evaluation for the right-sided stenosis, maintaining on aspirin for now. (3) Gout: Status: Chronic Assessment and plan: Continue outpatient medical therapy. (4) Hyperlipidemia: Status: Chronic Assessment and plan: Continue atorvastatin with baby aspirin. (5) Hypertension: Status: Chronic Assessment and plan: Continue outpatient medical therapy. (6) CKD (chronic kidney disease): Status: Chronic Assessment and plan: At baseline with monitoring labs while hospitalized. History of Present Illness History of Present Illness Chief Complaint: Intractable dizziness with associated nausea and vomiting. Narrative: This is an 84-year-old male patient who had a history of acute labyrinthitis and peripheral vertigo 5 months ago which was improved with vertigo exercises. He was hospitalized at that time and despite his history of carotid artery narrowing, he had no intervention for carotid stenosis and had no evidence of stroke. Patient did well at home in the interim but shortly before presentation, the patient began to have severe vertigo not being able to walk with associated nausea and vomiting. He did call for help and was transferred to the ED for evaluation. Stroke evaluation was negative and teleneurology consultation once again has been present the patient has peripheral vertigo probable recurrent labyrinthitis or labyrinth dysfunction. CT of the head and neck and MRI of the brain were performed. Patient was discharged home by the initial ED provider and then returned with persistent symptoms. He will be admitted for observation with PT and OT consults for labyrinth exercises and evaluation for safety at home. He denies any headache. He has no other focal neurological complaints. His other chronic medical problems appear to be stable. He was on and off his statin in the past but presently is on atorvastatin 4 mg daily. He also is on a baby aspirin. These will be continued. He is a full code. 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 currently on weight watcher's diet and has lost almost 40 lb in the last year intentionally b. denies any supplements Heart murmur (Acute) I/ Systolic Heart Murmur- First noted 05/04 Per pt. states he has had no issues regarding this, F/U up with PCP Dr. Lott BPH (benign prostatic hyperplasia) (Chronic) Probable Metabolic syndrome (Chronic) a. high triglycerides b. low HDL Gout (Chronic) Hyperlipidemia (Chronic) Hypertension (Chronic) Chronic kidney insufficiency (Chronic) a. Since at least 1998 b. baseline creatinine 1.9 Medical History Calculus of proximal right ureter Hx of fracture of ankle R ankle (mert placed) Syncope (04/15/14) Family History Mother , of hemorrhage but unknown No problems noted. Father , of heart issues No problems noted. Social History Smoking/Tobacco Use Status: Never Second Hand Exposure: No Smoking risk assessment performed?: Yes Alcohol Intake: current Alcohol Intake frequency: holidays/special occasions only Alcohol type: beer and hard liquor Drug use: Never Substance use type: does not use Adopted: No Caregiver/Support person: No Foster care: No Household members: spouse Housing: house Number of Children: 1 number of grandchildren: 1 Communication Needs: None Education Level: college Details: Associate's Degree Do you need help understanding health information?: Rarely current occupation: Retired Pets and animals: No Sexually active: Yes Do you think of yourself as: straight/heterosexual Current gender identity: male What is your relationship status?: How often do you talk on the phone with friends or family?: twice per week How often do you get together with friends or relatives?: three or more times per week Do you belong to any clubs or organized social groups?: no Panel score (0-1 are the most socially isolated patients): 2 What type of physical activity do you participate in: walking Duration: < 15 minutes/day Frequency: 5-6 times per week Beatriz/Shinto: Shinto Special beartiz needs: No Seatbelt use: always Helmet use: Yes Helmet use: always Drive intox or ride w/intox hammer driver: No Working smoke detector in home: Yes Carbon monox detector in home: Yes Do you feel safe at home: Yes Do you feel safe in your relationship?: Yes Meds Allergies and Home Medications Allergies Allergy/AdvReac Type Severity Reaction Status Date / Time seasonal Allergy Mild Nasal Uncoded 08/26/24 13:03 congestion Home Medications ?Medication ?Instructions ?Recorded ?Confirmed ?Type allopurinol 300 mg tablet 300 mg PO DAILY #90 tabs 01/22/24 08/26/24 Rx diltiazem HCl 240 mg capsule,24 240 mg PO DAILY #90 tabs 01/22/24 08/26/24 Rx hr,extended release lisinopril 40 mg tablet 40 mg PO DAILY #90 tabs 01/22/24 08/26/24 Rx aspirin 81 mg capsule 81 mg PO DAILY #90 caps 03/18/24 08/26/24 Rx atorvastatin 40 mg tablet 40 mg PO DAILY #90 tabs 03/18/24 08/26/24 Rx meclizine 25 mg tablet 25 mg PO BID PRN #14 tabs 08/26/24 Rx Exam Narrative Exam Narrative: General: Patient appears appropriate for age, alert and oriented x 3 and in no acute distress. Slightly pressured speech. Moderately obese. HEENT: Normocephalic, eyes with pupils equal and reactive light symmetrically, extraocular movement intact and sclera anicteric. No gross nystagmus to lateral gaze. Oropharynx with normal mucosa and fair dentition. Neck: Supple without JVD. No palpable carotid thrills. Back: Stooped posture without CVA tenderness. Lungs: Fair aeration. All station percussion. Heart: Regular rate and rhythm with no appreciable murmur or gallop. Abdomen: Obese contour, soft nontender to palpation with no palpable hepatomegaly. Bowel sounds positive all quadrants. Details of medical exam deferred. Extremities: No clubbing, cyanosis or pitting edema. Fair capillary refill. Skin: Normal color, warm and dry. Neuro: Cranial nerves II through XII intact, no focalizing motor deficits and no tremor. Romberg was not tested. No Babinski's. DTRs physiologic and symmetrical. Psych: Normal affect and mood though slightly pressured speech. No abnormal thought processes. Remote and recent memory grossly intact. Results Imaging Imaging Studies: Date of Exam: 08/26/24 EXAM: MR BRAIN WO CLINICAL HISTORY: dizzy TECHNIQUE: Multiplanar multisequence MRI of the brain was performed. COMPARISON: MR MR BRAIN WO from 03/18/2024 FINDINGS: Images are somewhat degraded by motion artifact. CEREBRAL PARENCHYMA: There is no evidence of intracranial hemorrhage, mass effect, or shift of midline structures. There are no extra-axial fluid collections. Ventricles are not enlarged or shifted. There is no significant focal signal abnormality in the cerebellar hemispheres nor within the ronda, midbrain, and thalami. There is no abnormal signal abnormality in the periventricular white matter. There is no significant focal signal abnormality evident on diffusion imaging to suggest acute ischemic event. FLOW VOIDS: Again noted is lack of normal flow void in the intra cavernous right internal carotid artery consistent with occlusion at this level. This is similar to previous. Flow signal in the right middle cerebral arteries reconstituted in the supraclinoid right ICA most probably related to retrograde flow through the anterior communicating artery from the opposite-left side. The intracavernous left internal carotid artery exhibits normal flow signal. PITUITARY GLAND: No mass nor parasellar abnormality. No obvious abnormality in the cavernous sinuses. PARANASAL SINUSES: The visualized paranasal sinuses appear unremarkable. No obvious finding ORBITS: No obvious findings. IMPRESSION: No significant change compared to MRI scan of 03/18/2024. Again noted is occlusion of the right internal carotid artery at the skull base level with reconstitution of flow at the level the supraclinoid right ICA, this by retrograde flow across the anterior communicating artery from the opposite-left side. No abnormal white matter signal. No restricted diffusion to suggest acute territorial nor acute lacune are infarct. Date of Exam: 08/26/24 EXAM: CT BRAIN NECK CTA CLINICAL HISTORY: Dizziness. TECHNIQUE: Imaging Protocol: Axial CT angiography was performed with multi-slice acquisition and multi-planar and/or 3D reconstructions. CONTRAST MATERIAL: Intravenous: Omnipaque 350 Contrast volume:70 mL COMPARISON: CT CT BRAIN NECK CTA from 03/17/2024 FINDINGS: CTA Neck W: Aortic arch anatomy: The aortic arch anatomy is conventional and there is no significant stenosis at the origin of the great vessels off of the aortic arch. No intimal flap evident. Anterior circulation: There is mild-moderate stenosis at the origin of the right common carotid artery off of the brachiocephalic trunk. Otherwise both common carotid arteries are again noted to ascend with normal luminal diameters. On the right side there is heavily calcified plaque at the carotid bifurcation and proximal right ICA with a critical stenosis at this level again noted (over 90 percent). Some flow is seen in the right ICA in the upper neck and face between the skull base-carotid canal. On the opposite-left side there is some partially calcified plaque again noted at the carotid bifurcation and proximal left ICA with approximately 60 percent stenosis at this level again noted. Flow in the left ICA above this level in the upper neck appears patent but the upper left ICA in the upper neck is tortuous, similar to previous. The left ICA is patent in the skull base-carotid canal. Posterior circulation: Both vertebral arteries originate in conventional fashion off of the subclavian arteries and there is no obvious stenosis at the origin of the vertebral arteries. Both vertebral arteries exhibit normal luminal diameters within the foramen transversarium. There is nonocclusive calcified plaque in both vertebral arteries at the skull base again noted. Both vertebral arteries contribute to the formation of the basilar artery at the skull base. CTA Brain W: Anterior circulation: Both intra cavernous internal carotid arteries are peripherally calcified. The right ICA is again noted to be occluded within the cavernous sinus. As was previously the case, the right supraclinoid ICA is reconstituted by flow across the anterior communicating artery from the patent left side. The left intra cavernous internal carotid artery is patent. Both A1 segments are patent as is the anterior communicating artery. There is most probably retrograde flow in the right A1 segment, from the left-side across the anterior communicating artery, this feeding the right middle cerebral artery. There is no aneurysm at the level the anterior communicating artery. The anterior cerebral arteries appear patent. Both middle cerebral arteries are patent with no evidence of significant stenosis nor intraluminal thrombus. There also no aneurysms of these vessels. Posterior circulation: The basilar artery ascends in the midline. Distally it gives off patent bilateral superior cerebellar arteries. Above this level the basilar artery terminates as patent bilateral posterior cerebral arteries. Again noted is a posterior communicating artery on the right side of the [id number] adding to flow in the right CARPENTER AND JOINER. There is no evidence of aneurysm at the tip of the basilar artery nor elsewhere in the [id number]. CT BRAIN: There is no evidence of intracranial hemorrhage, mass effect, or shift of midline structures. There are no extra-axial fluid collections. Ventricles are not enlarged or shifted. There are no ring enhancing lesions in the brain and no abnormal meningeal enhancement. IMPRESSION: 1. Findings are similar to the recent CTA study of 03/17/2024. Again noted is significant plaque at the carotid arteries on both sides the neck with critical stenosis on the right side at the carotid bifurcation-proximal right ICA with a thin flow column demonstrate above this level. The right intra cavernous internal carotid arteries again noted to be occluded with reconstitution of the right supraclinoid ICA via retrograde flow from the patent left side via the anterior communicating artery. The amount of stenosis at the level the plaque in the left carotid bulb-proximal left ICA is approximately 60 percent, unchanged. 2. Both vertebral arteries are again noted to be patent although both again exhibit calcified plaque at the level the skull base. Both vertebral arteries are demonstrated to contribute to the formation of the basilar artery at the skull base. 3. No evidence of obvious territorial infarct nor lacunar infarct. No intracranial hemorrhage. No ring enhancing lesions in the brain. 4. Recommend follow-up MRI with diffusion imaging Date of Exam: 08/26/24 EXAM: XR CHEST 1V IN DI DEPT CLINICAL HISTORY: Dizziness. TECHNIQUE: 2D digital imaging was performed. COMPARISON: CR,XR XR CHEST 1V IN DI DEPT from 03/17/2024 FINDINGS: Single AP portable view. Heart size is upper normal. The mediastinum is not widened. Lungs are clear. No infiltrates nor obvious pleural effusions. IMPRESSION: No acute pulmonary findings on this single AP portable view of the chest. Labs 08/26/24 13:20 08/26/24 13:20 Labs: Laboratory Results - last 24 hr 08/26/24 08/26/24 08/26/24 13:20 13:35 14:45 WBC 7.22 RBC 5.02 Hgb 15.7 Hct 45.6 MCV 91 MCH 31.3 MCHC 34.4 RDW 13.2 Plt Count 220 MPV 9.6 Immature Gran % 0.3 Neutrophils % 66.4 Lymphocytes % 21.9 Monocytes % 6.8 Eosinophils % 3.5 Basophils % 1.1 Nucleated RBC % 0.0 Absolute Neutrophils 4.80 Absolute Lymphocytes 1.58 Absolute Monocytes 0.49 Absolute Eosinophils 0.25 Absolute Basophils 0.08 Sodium 141 Potassium 4.2 Chloride 102 Carbon Dioxide 25.6 Anion Gap 13.4 H BUN 22 H Creatinine 1.8 H Est GFR (CKD-EPI 2020) 37.12 Glucose 134 H Calcium 10.6 H Magnesium 1.9 Total Bilirubin 0.9 AST 13 L ALT 22 Alkaline Phosphatase 108 Troponin I 35 38 Total Protein 7.6 Albumin 4.0 ABO/Rh A Negative Antibody Screen NEGATIVE 08/26/24 15:52 WBC RBC Hgb Hct MCV MCH MCHC RDW Plt Count MPV Immature Gran % Neutrophils % Lymphocytes % Monocytes % Eosinophils % Basophils % Nucleated RBC % Absolute Neutrophils Absolute Lymphocytes Absolute Monocytes Absolute Eosinophils Absolute Basophils Sodium Potassium Chloride Carbon Dioxide Anion Gap BUN Creatinine Est GFR (CKD-EPI 2020) Glucose Calcium Magnesium Total Bilirubin AST ALT Alkaline Phosphatase Troponin I Cancelled Total Protein Albumin ABO/Rh Antibody Screen Last Vital Signs Pulse 50 L 08/26/24 18:46 Resp 15 08/26/24 17:01 BP 150/54 H 08/26/24 18:46 Pulse Ox 97 08/26/24 15:58 Time Spent Time spent with Patient: >75 minutes Time was spent: preparing to see the patient(eg.review tests), obtaining and/or reviewing separately otained hiistory, ordering medications,tests, procedures, referring, communicating with other health healthcare receptionist, indepentently interpreting results, counseling the patient and care coordination
[2024-08-26 19:07] LABS: Bilirubin Negative (Negative); Blood Negative (Negative); Clarity Clear (Clear); Glucose Negative (Negative); Ketones 15 mg/dL (Negative); Leukocyte Esterase Negative (Negative); Nitrite Negative (Negative); Specific Gravity 1.015 (1.005-1.025); Urobilinogen 0.2 mg/dL (Up to 0.2); pH 5.5 (5-8)
--- NOTE | 2024-08-26 19:08 | ED.PROG_ITS ---
Date of service: 08/26/24 Time of Service: 19:11 Medical Decision Making Despite 2 doses of meclizine and midazolam the patient is still having too much dizziness to stand up and safely walk. He can get out of bed with nursing assistance. Will discuss with hospice when admission and working with PT and OT tomorrow. Quality:SDOH Health Related Social Needs: No Data to Display Discharge Plan Disposition Patient Disposition: Admit to [facility] Condition: Stable Discharge Details Clinical Impression: Dizziness, Carotid artery plaque Primary Care Provider: Jace Lott ED Provider: Scott Benites Home Meds and New Rx's Prescriptions: New meclizine 25 mg tablet 25 mg PO BID PRNQty: 14 0RF Continued allopurinol 300 mg tablet 300 mg PO DAILY Qty: 90 3RF diltiazem HCl 240 mg capsule,extended release 24 hr 240 mg PO DAILY Qty: 90 3RF lisinopril 40 mg tablet 40 mg PO DAILY Qty: 90 3RF atorvastatin 40 mg tablet 40 mg PO DAILY Qty: 90 0RF aspirin 81 mg capsule 81 mg PO DAILY Qty: 90 0RF Discharge Instructions Instructions: Vertigo (a type of dizziness) Additional Instructions: You were seen in the emergency department for your dizziness. Your MRI showed no sign of any strokes. Please follow-up with your primary care provider as you do have some plaques of cholesterol buildup in your carotid arteries. If you begin vomiting and does not stop or if you develop headache please return to the emergency department. The neurologist made no recommendations to change any of your medications. You may try this medication to treat your dizziness.
[2024-08-26 19:16] LABS: Bacteria Negative HPF (Negative); C & S Indicated? No; Casts Negative LPF (Negative); Crystals Negative HPF (Negative); Epithelial Cells Rare HPF (Negative); Mucus Trace (Negative); RBC Negative HPF (0-2); WBC 0-2 HPF (0-5)
[2024-08-26 20:14] LABS: COVID-19 PCR Negative (Negative); Influenza A PCR Negative (Negative); Influenza B PCR Negative (Negative); RSV PCR Negative (Negative); Source Nasopharynx
[2024-08-26] MEDS: Normal Saline Flush 10 ML SYR IVP (21:25)
[2024-08-26] MEDS: Enoxaparin 40 MG/0.4 ML SYR SC (22:14)
--- NOTE | 2024-08-26 22:46 | W.PC.ACHO ---
Registration Status: Primary Language: Preferred Language: ED Information & Data Chief Complaint Dizzy/Sync 08/26/24 13:01 Chief Complaint Dizzy/Sync 08/26/24 12:54 Triage Note dizziness for 2 days unable 08/26/24 12:54 to get out of bed, unable to eat, blood in urine this AM per , vomited x1 this AM Medical / Surgical History (Last Reviewed 08/26/24 @ 19:56 by Jeremy Sun) Calculus of proximal right ureter Hx of fracture of ankle Syncope (04/15/14) Most Recent Vital Signs Temperature 36.5 C 08/26/24 21:20 Temperature Source Oral 08/26/24 12:54 Pulse 57 L 08/26/24 21:20 Pulse Rhythm Regular 08/26/24 21:13 Pulse 49 L 08/26/24 20:50 Respiratory Rate 18 08/26/24 21:20 Respiratory Effort Normal, Non-Labored 08/26/24 21:13 Respiratory Depth Normal 08/26/24 21:13 Respiratory Pattern Normal 08/26/24 21:13 Blood Pressure 176/74 H 08/26/24 21:20 Blood Pressure Mean 97 08/26/24 20:46 Blood Pressure Position Supine 08/26/24 12:54 Pulse Oximetry 96 08/26/24 21:20 Oxygen Delivery Method Room Air 08/26/24 21:20 Oxygen Flow Rate 0 08/26/24 21:20 Pain Level 0 08/26/24 21:20 Allergies seasonal Allergy (Mild, Uncoded 08/26/24 13:03) Nasal congestion Particularly when pollen counts are high Precautions Isolation Standard precaution 08/26/24 13:01 Active Medications Generic Name Dose Route Start Last Admin Trade Name Fortunatoq PRN Reason Stop Dose Admin Enoxaparin Sodium 40 mg 08/26/24 22:00 08/26/24 22:14 Enoxaparin 40 Mg/0.4 Ml Syr SC 40 mg Q24H CHAYITO Administration Sodium Chloride 0 ml 08/26/24 21:31 08/26/24 21:25 Normal Saline Flush 10 Ml Syr IVP 10 ml BID CHAYITO Administration IV IV Catheter Type [Left Saline Lock Antecubital] IV Catheter Gauge [Left 20 Antecubital] Diet Orders Category Date Time Status Heart Healthy Eating [DIET] Nutrition 08/27/24 Breakfast Ordered Diagnostics 08/26/24 08/26/24 08/26/24 Range/Units 19:30 18:55 15:52 WBC (4.4-10.8) 10^3/uL RBC (4.36-5.78) 10^6/uL Hgb (13.5-17.5) g/dL Hct (40.0-50.0) % MCV (80-95) fL MCH (27.0-33.0) pg MCHC (32.0-36.0) % RDW (11.8-14.1) % Plt Count (130-400) 10^3/uL MPV (8.0-11.0) fL Immature Gran % % Neutrophils % % Lymphocytes % % Monocytes % % Eosinophils % % Basophils % % Nucleated RBC % (0.0-0.3) % Absolute Neutrophils (1.2-6.7) 10^3/uL Absolute Lymphocytes (1.2-3.4) 10^3/uL Absolute Monocytes (0.1-0.8) 10^3/uL Absolute Eosinophils (0.0-0.7) 10^3/uL Absolute Basophils (0.0-0.2) 10^3/uL Sodium (136-145) mmol/L Potassium (3.5-5.1) mmol/L Chloride (98-107) mmol/L Carbon Dioxide (21.0-32.0) mmol/L Anion Gap (3-11) mmol/L BUN (7-18) mg/dL Creatinine (0.70-1.30) mg/dL Est GFR (CKD-EPI 2020) (mL/min/1.73m2) Glucose (74-106) mg/dL Calcium (8.5-10.1) mg/dL Magnesium mg/dL Total Bilirubin (0.2-1.0) mg/dL AST (15-37) U/L ALT (16-63) U/L Alkaline Phosphatase (46-116) U/L Troponin I Cancelled (<or=76) ng/L Total Protein (6.4-8.2) g/dL Albumin (3.4-5.0) g/dL TSH (0.36-3.74) uIU/mL Urine Color Yellow (Yellow) Urine Clarity Clear (Clear) Urine pH 5.5 (5-8) Ur Specific Howell 1.015 (1.005-1.025) Urine Protein 30 H (Neg-Trace) mg/dL Urine Ketones 15 H (Negative) mg/dL Urine Blood Negative (Negative) Urine Nitrite Negative (Negative) Urine Bilirubin Negative (Negative) Urine Urobilinogen 0.2 (Up to 0.2) mg/dL Ur Leukocyte Esterase Negative (Negative) Urine RBC Negative (0-2) HPF Urine WBC 0-2 (0-5) HPF Ur Epithelial Cells Rare (Negative) HPF Urine Crystals Negative (Negative) HPF Urine Bacteria Negative (Negative) HPF Urine Casts Negative (Negative) LPF Urine Mucus Trace (Negative) Ur Culture Indicated? No Urine Glucose Negative (Negative) mg/dL COVID-19 Source Nasopharynx SARS-CoV-2 (PCR) Negative (Negative) Influenza Type A (PCR) Negative (Negative) Influenza Type B (PCR) Negative (Negative) RSV (PCR) Negative (Negative) ABO/Rh Antibody Screen 08/26/24 08/26/24 08/26/24 Range/Units 14:45 13:35 13:20 WBC 7.22 (4.4-10.8) 10^3/uL RBC 5.02 (4.36-5.78) 10^6/uL Hgb 15.7 (13.5-17.5) g/dL Hct 45.6 (40.0-50.0) % MCV 91 (80-95) fL MCH 31.3 (27.0-33.0) pg MCHC 34.4 (32.0-36.0) % RDW 13.2 (11.8-14.1) % Plt Count 220 (130-400) 10^3/uL MPV 9.6 (8.0-11.0) fL Immature Gran % 0.3 % Neutrophils % 66.4 % Lymphocytes % 21.9 % Monocytes % 6.8 % Eosinophils % 3.5 % Basophils % 1.1 % Nucleated RBC % 0.0 (0.0-0.3) % Absolute Neutrophils 4.80 (1.2-6.7) 10^3/uL Absolute Lymphocytes 1.58 (1.2-3.4) 10^3/uL Absolute Monocytes 0.49 (0.1-0.8) 10^3/uL Absolute Eosinophils 0.25 (0.0-0.7) 10^3/uL Absolute Basophils 0.08 (0.0-0.2) 10^3/uL Sodium 141 (136-145) mmol/L Potassium 4.2 (3.5-5.1) mmol/L Chloride 102 (98-107) mmol/L Carbon Dioxide 25.6 (21.0-32.0) mmol/L Anion Gap 13.4 H (3-11) mmol/L BUN 22 H (7-18) mg/dL Creatinine 1.8 H (0.70-1.30) mg/dL Est GFR (CKD-EPI 2020) 37.12 (mL/min/1.73m2) Glucose 134 H (74-106) mg/dL Calcium 10.6 H (8.5-10.1) mg/dL Magnesium 1.9 mg/dL Total Bilirubin 0.9 (0.2-1.0) mg/dL AST 13 L (15-37) U/L ALT 22 (16-63) U/L Alkaline Phosphatase 108 (46-116) U/L Troponin I 38 35 (<or=76) ng/L Total Protein 7.6 (6.4-8.2) g/dL Albumin 4.0 (3.4-5.0) g/dL TSH 3.40 (0.36-3.74) uIU/mL Urine Color (Yellow) Urine Clarity (Clear) Urine pH (5-8) Ur Specific Howell (1.005-1.025) Urine Protein (Neg-Trace) mg/dL Urine Ketones (Negative) mg/dL Urine Blood (Negative) Urine Nitrite (Negative) Urine Bilirubin (Negative) Urine Urobilinogen (Up to 0.2) mg/dL Ur Leukocyte Esterase (Negative) Urine RBC (0-2) HPF Urine WBC (0-5) HPF Ur Epithelial Cells (Negative) HPF Urine Crystals (Negative) HPF Urine Bacteria (Negative) HPF Urine Casts (Negative) LPF Urine Mucus (Negative) Ur Culture Indicated? Urine Glucose (Negative) mg/dL COVID-19 Source SARS-CoV-2 (PCR) (Negative) Influenza Type A (PCR) (Negative) Influenza Type B (PCR) (Negative) RSV (PCR) (Negative) ABO/Rh A Negative Antibody Screen NEGATIVE Intake and Output - 24 Hour Total 08/26/24 12:47 thru 08/26/24 21:44 Intake Total 770 Balance 770 Weight 95.708 kg Intake: IV 770 Falls Risk Assessment History of Falls No History 08/26/24 21:13 Contributing Factors Unstable 08/26/24 21:13 Ambulatory Aids Independent 08/26/24 21:13 Tubes/Lines With any additional score 08/26/24 21:13 Gait Evaluation No gait disturbance 08/26/24 21:13 Cognition No cognitive impairment 08/26/24 21:13 Fall Total Score 23 08/26/24 21:13 Level of Risk Standard/Low Risk 08/26/24 21:13 Problems (Last Reviewed 08/26/24 @ 19:56 by Jeremy Sun) Vertigo (Chronic 03/28/14) CKD (chronic kidney disease) (Chronic) Carotid artery plaque (Acute) Dizziness (Acute) Gout (Chronic) Hyperlipidemia (Chronic) Hypertension (Chronic) v v v v v v v v v Sending and/or Receiving Nurses: Please use comment section below to note any information pertinent to the patient hand-off not included above. Information / Comments: brought in by EMS. started yesterday; dizziness, n/v, states he hasn't been able to do anything like eat or drink or get out of bed. got about 750 cc NS, versed, meclizine. no more n/v since at least 1899. did try to get out of bed, could not d/t dizziness. 20 LAC Report received from: Levi @ 2039
[2024-08-27 02:57] VITALS: BP 172/51; PULSE 55; RESP 18; TEMP 36.2; O2SAT 96
[2024-08-27 06:44] LABS: HCT 41.3 % (40.0-50.0); HGB 14.4 g/dL (13.5-17.5); MCH 31.3 pg (27.0-33.0); MCHC 34.9 % (32.0-36.0); MCV 90 fL (80-95); MPV 9.7 fL (8.0-11.0); Platelet Count 198 10^3/uL (130-400); RDW 13.3 % (11.8-14.1); RDW-SD 43.5 fL; WBC 7.47 10^3/uL (4.4-10.8)
[2024-08-27 07:07] LABS: ALT 17 U/L (16-63); AST 14 U/L (15-37); Albumin 3.6 g/dL (3.4-5.0); Alkaline Phosphatase 98 U/L (46-116); Anion Gap 10.8 mmol/L (3-11); BUN 22 mg/dL (7-18); CO2 26.2 mmol/L (21.0-32.0); CREATININE 1.5 mg/dL (0.70-1.30); Calcium 9.8 mg/dL (8.5-10.1); Chloride 105 mmol/L (98-107); Estimated GFR 46.19 (mL/min/1.73m2); Glucose 90 mg/dL (74-106); Potassium 3.9 mmol/L (3.5-5.1); Sodium 142 mmol/L (136-145)
[2024-08-27] MEDS: Allopurinol 300 MG TAB PO (07:44)
[2024-08-27] MEDS: Aspirin 81 MG CHEW PO (07:44)
[2024-08-27] MEDS: Atorvastatin 40 MG TAB PO (07:44)
[2024-08-27] MEDS: Meclizine 12.5 MG TAB PO ×2 (07:44→20:03)
[2024-08-27] MEDS: Normal Saline Flush 10 ML SYR IVP ×2 (07:44→20:04)
[2024-08-27] MEDS: Lisinopril 20 MG TAB 40 MG PO (07:44)
[2024-08-27] MEDS: dilTIAZem CD 120 MG CAPCR 240 MG PO (07:44)
[2024-08-27 07:45] VITALS: BP 181/67; PULSE 65; RESP 24; TEMP 36.4; O2SAT 97
--- NOTE | 2024-08-27 09:01 | PDOC.CMIN ---
Date of service: 08/27/24 Time of Service: 09:02 Care Management Initial Assmt Initial Assessment Reason for Hospitalization: dizziness, vertigo Functional Status/Living Situation Patient Presentation: Aldo presented to the ER yesterday afternoon, via EMS. He does have a prior history of vertigo. Serafin reported that he had dizziness for the prior 2 days, causing decreased PO intake. He also reported blood in his urine, and vomiting. MRI and CT of the head and neck were negative for any signs of stroke. [facility]. Despite 2 doses of meclizine and midazolam the patient is still having too much dizziness to stand up and safely walk. He was admitted to observation. He will be continued on meclizine for symptomatic care with PT and OT to see patient for evaluation to instruct again on vertigo exercises. PT eval was done, and they are recommending that Serafin attend outpatient physical therapy. Serafin was sleeping, snoring even, on 2 occasions when CM went to meet with him. Third attempt he was with staff and unavailable for interview. Town of Residence: [facility] Resides with: Spouse (Radha) Significant Other/Family: Local (daughterJoy. Brother and sister in law Ayo and Ella) Natural Supports: family Employment Status: Retired Instrumental Activities of Daily Living (ADLs): Independent Medications Medication Management: No Issues/Barriers identified Advance Directives Advance Directives: Do you have an Advance Directive: Y 11/25/19 13:15 AD On File at [facility]: Y 08/20/21 09:14 Date Asked 06/29/21 08/25/24 07:31 AD Date Reviewed 08/25/24 08/25/24 07:31 COLST On File at [facility] COLST Date Scanned Code Status Resuscitation Status Full Code Insurance Coverage/Financial Issues Insurance: Medicare Part A & B Care Team Visit Care Team Role Provider Type Julianna Casey NP NURSE PRACTITIONER Jace Lott DO Primary Care Provider OSTEOPATHIC DOCTOR Damari Gill Other Providers REG OCCUPATIONAL THERAPIST InPatient Abdiel Shannon Other Providers OTHER Scott Benites MD Emergency Provider [facility] STAFF PHYSICIAN Jeremy Sun Admit Provider NON-[facility] STAFF PHYSICIAN Attending Provider Discharge Potential Discharge Needs: PT Evaluation, PCP F/U Appt and Other (OT evaluation, neuro follow up) Anticipated Barriers to Discharge: None Identified Patient/Family Education Needs: Review discharge instructions, discuss Ask Me Three Transportation: Private vehicle Plan: Anticipate that Aldo will be discharged home with a referral to outpatient PT. He will f/u with his PCP - he does have a standing appt on 09/20, and with neurology. He will continue per his plan of care and transport home in a private vehicle with his family. CM will continue to follow and to update the plan as needed. Social Determinants of Health Screening Social Determinants of Health last assessed: 08/27/24 Will the Patient Participate in the Screening?: Yes Do you worry about having a steady place to live?: no Problems where you live: no known problems In the past 12 months, have you had to go without electric, gas, oil or water in your home?: no Have you or anyone in your house had to go without enough food to eat?: no Has lack of transportation kept you from medical appointments or from doing things needed for daily living?: no Has anyone in your life made you feel unsafe or unsupported?: no How hard is it for you to pay for the very basics like food, housing, medical care, and heating? Would you say it is:: Not hard at all Do you want help finding or keeping work or a job?: I do not need or want help If for any reason you need help with day-to-day activities such as bathing, preparing meals, shopping, managing finances, etc., do you get the help you need?: I don?t need any help How often do you feel lonely or isolated from those around you?: Never Do you speak a language other than Bermudian at home?: No Does the patient want assistance with any of the above?: No PFSH All Active Problems (Updated 08/27/24 @ 06:12 by Jeremy Sun) Carotid artery stenosis without cerebral infarction (Chronic) Vertigo (Chronic 03/28/14) CKD (chronic kidney disease) (Chronic) Carotid artery plaque (Acute) Dizziness (Acute) Diverticula of colon (Acute) Coronary artery calcification seen on CAT scan (Acute) White coat syndrome with diagnosis of hypertension (Acute) Kidney stones, calcium oxalate (Acute) Obesity, Class II, 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 currently on weight watcher's diet and has lost almost 40 lb in the last year intentionally b. denies any supplements Heart murmur (Acute) I/ Systolic Heart Murmur- First noted 05/04 Per pt. states he has had no issues regarding this, F/U up with PCP Dr. Lott BPH (benign prostatic hyperplasia) (Chronic) Probable Metabolic syndrome (Chronic) a. high triglycerides b. low HDL Gout (Chronic) Hyperlipidemia (Chronic) Hypertension (Chronic) Chronic kidney insufficiency (Chronic) a. Since at least 1998 b. baseline creatinine 1.9 Medical History Calculus of proximal right ureter Hx of fracture of ankle R ankle (mert placed) Syncope (04/15/14) Family History Mother , of hemorrhage but unknown No problems noted. Father , of heart issues No problems noted. Social History Smoking/Tobacco Use Status: Never Second Hand Exposure: No Smoking risk assessment performed?: Yes Alcohol Intake: current Alcohol Intake frequency: holidays/special occasions only Alcohol type: beer and hard liquor Drug use: Never Substance use type: does not use Adopted: No Caregiver/Support person: No Foster care: No Household members: spouse Housing: house Number of Children: 1 number of grandchildren: 1 Communication Needs: None Education Level: college Details: Associate's Degree Do you need help understanding health information?: Rarely current occupation: Retired Pets and animals: No Sexually active: Yes Do you think of yourself as: straight/heterosexual Current gender identity: male What is your relationship status?: How often do you talk on the phone with friends or family?: twice per week How often do you get together with friends or relatives?: three or more times per week Do you belong to any clubs or organized social groups?: no Panel score (0-1 are the most socially isolated patients): 2 What type of physical activity do you participate in: walking Duration: < 15 minutes/day Frequency: 5-6 times per week Beatriz/Zoroastrianism: Faith Special beatriz needs: No Seatbelt use: always Helmet use: Yes Helmet use: always Drive intox or ride w/intox dumpster driver: No Working smoke detector in home: Yes Carbon monox detector in home: Yes Do you feel safe at home: Yes Do you feel safe in your relationship?: Yes Readmission Within the Past 30 Days Yes or No: No
--- NOTE | 2024-08-27 10:20 | PT.INIE ---
PT Notes Visit Reasons: Intractable Vertigo Physical Therapy Inpatient Initial Evaluation Date: 08/27/2024 Referring Doctor: Jeremy Sun,? PT Orders: PT CONSULT: 'Exacerbtion of Chroninc Condition. Maneuvers to desensitize peripheral vertigo Precautions: Fall. Standard. Activity as tolerated. Patient Profile/Admitting Diagnosis: Aldo is an 84-year-old male who presented to the ED on 08/26/2024 with complaints of dizziness and inability to ambulate.? CT scan and MRI negative for posterior circulation CVA and referral was made for PT to assess for peripheral causes for vertiginous symptoms.? 08/26/2024 BRAIN MRI IMPRESSION: --No significant change compared to MRI scan of 03/18/2024. --Again noted is occlusion of the right internal carotid artery at the skull base level with reconstitution of flow at the level the supraclinoid right ICA, this by retrograde flow across the anterior communicating artery from the opposite-left side. --No abnormal white matter signal. No restricted diffusion to suggest acute territorial nor acute lacune are infarct. 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 currently on weight watcher's diet and has lost almost 40 lb in the last year intentionally b. denies any supplements Heart murmur (Acute) I/ Systolic Heart Murmur- First noted 05/04 Per pt. states he has had no issues regarding this, F/U up with PCP Dr. Lott BPH (benign prostatic hyperplasia) (Chronic) ProbableMetabolic syndrome (Chronic) a. high triglycerides b. low HDLGout (Chronic) Hyperlipidemia (Chronic) Hypertension (Chronic) Chronic kidney insufficiency (Chronic) a. Since at least 1998 b. baseline creatinine 1.9 Medical History Calculus of proximal right ureter Hx of fracture of ankle R ankle (mert placed) Syncope (04/15/14) Social History/Home Situation: Lives with in a private home with 4 steps to enter.? Independent with all aspects of ADLs prior to surgery.? Still drives. Equipment Owned/DME: [facility] SUBJECTIVE: Stated that kaiden felt the room spinning when he woke up and tried to get up Monday morning. He had stayed in bed since. ?Onset: ?03/27/2025Monday morning when he tried standing up from bed ?Quality: Room-spinning dizziness worse with sitting up/standing up ?Duration: ?Continuous since Monday ?Previous Episodes: None ?Exacerbating Factors: Positional change, worse with supine<>sit ?Headache: Back in February 2024 ?Neck ache: Mild neck pain on R with neck rotation and extension to L ?Nausea/Vomitting: Nauseous after L Chang-Hallpike and and after L Augie maenuver ?Hearing Loss: None ?Tinnitus: None ?Fullness in Ear: None ?Imbalance: Sensation of being off-balance when he stood up for this session ?Red Flags: ? Visual changes: None ? Dysphagia or Dysarthria: None ? Facial Weakness: None ? Incoordination: None Prior Level of Function: ?Independent with all ADLs Current Level of Function: Very apprehensive about sitting up about sitting up and standing up due to increased nausea Previous Treatment: Renard Ghosh back in February for a right posterior canal canalithiasis OBJECTIVE: ?Posture: Good upright posturing ?Observation: Highly guarded movements, with limited head motions and trunk rotation during gait, transfers and bed mobility ?Mental Status: A and O x 4 ?Vital Signs: BP 143/72 mmHg, SaO2 90% on RA after attempt at ambulation ROM: Cervical ROM: WFL with minimal soreness at end range of L cervical rotation Right Upper Extremity: Shoulder Flexion lacks the last 25% of AROM. Shoulder abduction lacks the last 25% of AROM. Elbow flexion WFL. Wrist flexion WFL. Functional opening and closing of hand WFL. Left Upper Extremity: Shoulder Flexion lacks the last 25% of AROM. Shoulder abduction lacks the last 25% of AROM. Elbow flexion WFL. Wrist flexion WFL. Functional opening and closing of hand WFL. Right Lower Extremity: Hip flexion lacks the last 25% of AROM. Hip abduction WFL. Knee flexion 20 degrees to 100 degrees. Knee extension -20 degrees. Ankle dorsiflexion to neutral only. Ankle plantarflexion WFL. Left Lower Extremity: Hip flexion lacks the last 25% of AROM. Hip abduction WFL. Knee flexion 20 degrees to 100 degrees. Knee extension -20 degrees. Ankle dorsiflexion to neutral only. Ankle plantarflexion WFL. STRENGTH: Cervical muscle strength: 4/5 Right Upper Extremity: Shoulder flexors 3-/5. Shoulder abductors 3-/5. Elbow flexors 5/5. Elbow extensors 5/5. Research Computing Specialist strong. Left Upper Extremity: Shoulder flexors 3-/5. Shoulder abductors 3-/5. Elbow flexors 5/5. Elbow extensors 5/5. Research Computing Specialist strong. Right Lower Extremity: Hip flexors 3-/5. Hip abductors 4-/5. Knee flexors 4/5. Knee extensors 3-/5. Ankle dorsiflexors 3-/5. Ankle plantarflexors 4/5. Left Lower Extremity:Hip flexors 3-/5. Hip abductors 4-/5. Knee flexors 4/5. Knee extensors 3-/5. Ankle dorsiflexors 3-/5. Ankle plantarflexors 4/5. BED MOBILITY/TRANSFERS: ?Minimal cueing provided for use of B hands as needed for support,? movement sequence,? AD management,? and posture to reduce fall risk and minimize pain report ?Rolling contact guard assist. ?Supine to sit contact guard assist ?Sit to supine contact guard assist ?Sit to stand minimal assist ?Stand to sit minimal assist GAIT: After [place]-Hallpike maneuver and L Augie maneuver,? patient felt smewhat better and was agreeable to trying gout sitting and walking.? He was able to cover about 5 small steps before needing to sit back down due to symptom exacerbation. Used front-wheeled walker but with very hesitant steps Margoth slowed.? Minimal assist of PT. GAMING HOST was called in to assist for safety but patient requsted to go back to bed to rest due to worsened nausea. Special Tests: ? [place]: Unable to assess due to symptom exacerbation ? Coordination: Intact ? Fine Motor: Intact ? Visual Tracking: Decreased in smooth pursuit with return to midline from left gaze ? Head Thrust: Corrective saccade noted with head thrust to R ? [place]-Halpike: Pronounced downbeat nystagmus lasting for more than minutes with L [place]-Hallpike with increased nausea reported; R upbeating torsional nystagmus with R [place]-Hallpike lasting less than a minute ? Supine Roll Test: Negative Balance: ?Static Sitting: Fair ?Dynamic Sitting: Fair ?Static Standing: Fair ?Dynamic Standing: Poor Special Tests: ?Mobility Limitations Standardized Measure ?[facility] 6 clicks Basic Mobility Inpatient Short Form: ?Raw Score: 18 CMS Score: 47% deficit Informed Consent/Education: Patient was instructed in purpose of PT consult and plan of care. Agreeable to proceed with performance of L Augie maneuver for this session. NEURO RE-ED: ?-Gaze stabilization exercises with good response NOT DONE FOR TODAY ?-L Augie maneuver performance and patient education/training with partial resolution of symptoms. THERA ACT: Patient guided with safe performance of short distance ambulation using the front-wheeled walker requiring contact guard assist and minimal verbal cueing for safe directional changes,? movement transition,? and AD management. ASSESSMENT: Pronounced L downbeat nystagmus lasting more than 1 minute characteristic of a L posterior cupulolithiasis superimposed on a R upbeat torsional nystagmus recurrence with R [place]-Hallpike indicating multiple canal involvement. L Augie maneuver was initiated with patient right after the Chang-Hallpike was performed to which the patient responded favorably that he agreed to sit up and walk to see how he does. Patient had worsening of symptoms after doing 5 steps and wanted to sit right away. Anxiety as well as an empty stomach may have caused this and so it was decided to retry this session after lunch today. Patient presents with clinical signs and symptoms consistent with current/admitting diagnoses that have resulted to mobility limitations, gait instability, generalized weakness, and overall ADL decline as demonstrated by the following impairment level findings: ?1. Impaired sitting/standing balance ?2. Impaired activity tolerance ?3. Sensation of spinning with positional change ?Impairments are contributing to the following functional limitations: ?1. Increased completion time for mobility ADL performance ?2. Increased risk for falls Patient is assessed as a 67667 moderate complexity based on the following History: Aldo is an 84-year-old male who presented to the ED on 03/17/2024 with complaints of dizziness and difficulty with transfers as well as ambulation.? CT scan and MRI negative for posterior circulation CVA and referral was made for PT to assess for peripheral causes for vertiginous symptoms.? ?Examination: Demonstrable impairment above ?Presentation: Evolving ?Decision Makin moderate complexity Goals: Goals X1 week 1. Supine-Sit independent 2. Sit-Supine independent 3. Sit-Stand independent 4. Stand-Sit independent 5. Bed-Chair independent 6. Chair-Bed independent 7. Independent gait on level surface with use of least restrictive device for at least 300 feet without report of pain nor dyspnea 8. Independent stair negotiation while holding onto bilateral rails for at least 10 steps without report of pain nor dyspnea 9. Independent with home exercise program 10. Good static and dynamic standing balance/tolerance 11.? Patient will demonstrate good mastery of Augie maneuver performance and gaze stabilization exercises for home . Plan of Care/Treatment Plan Vestibular rehabilitation and neuromuscular re-education to address symptoms of BPPV. 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 [] SNF for continued rehabilitation [] [] [employer] Drill Press Operator Care [] [] SNF versus LTC based on ability to participate and progress [] ?TREATMENT CODE/TIME: ?96441 x 30 minutes for 1 unit, 34228 x 40 minutes for 3 units (10:20-11:30). ?Thank you for the opportunity to participate in the care of this patient. ?Angela Austin PT, DPT, CLT ?[facility] ?[facility] ?[place], [place]
--- NOTE | 2024-08-27 10:42 | PHA.REVIEW2 ---
Pharmacy Admission Review Admission Clinical Review Admission Pharmacy Review: Carotid artery plaque (Acute) Dizziness (Acute) seasonal Allergy (Mild, Uncoded 08/26/24 13:03) Nasal congestion Resuscitation Status Full Code Height 5 ft 10 in Weight 91.8 kg Pharmacy Admission Review Renal Dosing Renal Dosing: BUN 22 mg/dL (7-18) H 08/27/24 06:24 Creatinine 1.5 mg/dL (0.70-1.30) H 08/27/24 06:24 Medications needing adjustments: Reviewed (CrCl 43.2 mL/min, SCr decreased from 1.8) List of meds needing interventions: Current medications are okay Anticoagulation Anticoagulation: Hgb 14.4 g/dL (13.5-17.5) 08/27/24 06:24 Hct 41.3 % (40.0-50.0) 08/27/24 06:24 Plt Count 198 10^3/uL (130-400) 08/27/24 06:24 Creatinine 1.5 mg/dL (0.70-1.30) H 08/27/24 06:24 DVT Prophylaxis: Reviewed Medications: Enoxaparin (40mg daily) Relevant Labs Relevant Labs: Sodium 142 mmol/L (136-145) 08/27/24 06:24 Potassium 3.9 mmol/L (3.5-5.1) 08/27/24 06:24 Chloride 105 mmol/L (98-107) 08/27/24 06:24 Magnesium 2.0 mg/dL 08/27/24 06:24 Electrolytes, C-Reactive P, ESR: Reviewed Cardiac Review Cardiac Review: Troponin I Cancelled 08/26/24 15:52 Blood Pressure 181/67 0745 Blood Pressure 172/51 0257 BP, HR, EF%: Reviewed (HR WNL) List meds needing interventions: Has orders for diltiazem CD 240mg daily and lisinopril 40mg daily QTc Review QTc: Reviewed (413 from 08/26/24) IV to PO Switch IV Medications: Reviewed Home Meds Home Med List reviewed: Reviewed Current Meds Current Medication Order Review: Intervened Comments: Added 2nd PRN to meclizine order per pharmacy protocol
[2024-08-27 11:28] VITALS: BP 143/74; PULSE 53; RESP 14; TEMP 36.7; O2SAT 94
--- NOTE | 2024-08-27 12:40 | TELEFU_ITS ---
Date of service: 08/27/24 Time of Service: 12:40 Nutrition Note NOTE: 84yo male pt admitted after experienceing dizziness and weakness at home - unable to get out of bed. Pt with hx of CAD, CKD HTN, HLD, gout. Low appetite reported by pt and - I'm just wiped out. Hasn't moved b owels in several days per . HAs boost ONS at home available - agreed to ONS at dinner tonight and while intake is lower than usual. Denies N/V at this time. Denies any concerns with chewing and swallowing. No food allergies or special nutrition needs per pt and his . had small amount of lunch today - chix noodle soup, some yogurt. Total protein and albumin labs wnl. lytes wnl. Offered prunes from kitchen and can offer pysllium or PEG if constipation becomes concerning - will monitor. Will continue to check back with pt regarding appetite/intake, ONS desire, and monitor labs, weight Time Spent in Nutritional Counseling and Treatment: 5 min
[2024-08-27] MEDS: Meclizine 25 MG TAB PO (13:59)
[2024-08-27 15:22] VITALS: BP 159/66; PULSE 54; RESP 14; TEMP 36.7; O2SAT 92
--- NOTE | 2024-08-27 16:30 | PGE_ITS ---
Date of Service Date of service: 08/27/24 Time of Service: 16:30 Assessment and Plan Assessment and plan (1) Vertigo: Status: Chronic Assessment and plan: no evidence of stroke with CT of the head and neck and MRI of the brain. continued on meclizine for symptoms PT for vestibular rehab and right posterior canal canalithaisis Outpatient follow-up with neurology (2) Carotid artery stenosis without cerebral infarction: Status: Chronic Assessment and plan: Stable at 90% on the right and 60% on the left with no intervention recommended by teleneurology at this time. If recurrent neurological symptoms, should consider at least vascular surgery evaluation for the right-sided stenosis, maintaining on aspirin for now. (3) Gout: Status: Chronic Assessment and plan: Continue outpatient medical therapy. (4) Hyperlipidemia: Status: Chronic Assessment and plan: Continue atorvastatin with baby aspirin. (5) Hypertension: Status: Chronic Assessment and plan: blood pressures have been elevated Continue outpatient medical therapy and monitor. (6) CKD (chronic kidney disease): Status: Chronic Assessment and plan: At/below baseline with creatinine at 1.5. avoid nephrotoxic drugs, renal dose meds as needed. anticipate discharge to home with no services once medically stable discussed with DR Rocha Subjective Subjective Patient reports: no new complaints, tolerating liquids well and afebrile; denies feels better Interval history since last seen: Continues to have dizziness and unsteady gait with position changes. Working with physical therapy. No fever no chills, no chest pain shortness of breath headaches or visual disturbances hemodynamically stable. Exam Narrative Exam Narrative: Elderly male of stated age no acute distress head is atraumatic eyes nonicteric noninjected oral mucosas moist neck supple full range of motion cardiovascular regular rate and rhythm respirations even and unlabored abdomen round nontender moves all extremities equally. Neurologic he is awake alert oriented no focal deficits psychiatric appropriate mood and affect Objective Last Vital Signs Temp 36.7 C 08/27/24 15:22 Pulse 54 L 08/27/24 15:22 Resp 14 08/27/24 15:22 BP 159/66 H 08/27/24 15:22 Pulse Ox 92 08/27/24 15:22 Laboratory Results - last 24 hr 08/26/24 08/26/24 08/26/24 13:20 18:55 19:30 WBC RBC Hgb Hct MCV MCH MCHC RDW Plt Count MPV Sodium Potassium Chloride Carbon Dioxide Anion Gap BUN Creatinine Est GFR (CKD-EPI 2020) Glucose Calcium Magnesium Total Bilirubin AST ALT Alkaline Phosphatase Total Protein Albumin TSH 3.40 Urine Color Yellow Urine Clarity Clear Urine pH 5.5 Ur Specific [place] 1.015 Urine Protein 30 H Urine Ketones 15 H Urine Blood Negative Urine Nitrite Negative Urine Bilirubin Negative Urine Urobilinogen 0.2 Ur Leukocyte Esterase Negative Urine RBC Negative Urine WBC 0-2 Ur Epithelial Cells Rare Urine Crystals Negative Urine Bacteria Negative Urine Casts Negative Urine Mucus Trace Ur Culture Indicated? No Urine Glucose Negative COVID-19 Source Nasopharynx SARS-CoV-2 (PCR) Negative Influenza Type A (PCR) Negative Influenza Type B (PCR) Negative RSV (PCR) Negative 08/27/24 06:24 WBC 7.47 RBC 4.60 Hgb 14.4 Hct 41.3 MCV 90 MCH 31.3 MCHC 34.9 RDW 13.3 Plt Count 198 MPV 9.7 Sodium 142 Potassium 3.9 Chloride 105 Carbon Dioxide 26.2 Anion Gap 10.8 BUN 22 H Creatinine 1.5 H Est GFR (CKD-EPI 2020) 46.19 Glucose 90 Calcium 9.8 Magnesium 2.0 Total Bilirubin 1.0 AST 14 L ALT 17 Alkaline Phosphatase 98 Total Protein 7.0 Albumin 3.6 TSH Urine Color Urine Clarity Urine pH Ur Specific [place] Urine Protein Urine Ketones Urine Blood Urine Nitrite Urine Bilirubin Urine Urobilinogen Ur Leukocyte Esterase Urine RBC Urine WBC Ur Epithelial Cells Urine Crystals Urine Bacteria Urine Casts Urine Mucus Ur Culture Indicated? Urine Glucose COVID-19 Source SARS-CoV-2 (PCR) Influenza Type A (PCR) Influenza Type B (PCR) RSV (PCR) Time Spent with Patient Time Spent with Patient: 35-49 minutes Time was spent: preparing to see the patient(eg.review tests), obtaining and/or reviewing separately otained hiistory, ordering medications,tests, procedures, indepentently interpreting results and counseling the patient
--- NOTE | 2024-08-27 16:44 | PTTR_ITS ---
PT Notes Visit Reasons: Intractable Vertigo Physical Therapy Inpatient Treatment Note Date: 08/27/2024 Precautions: Fall. Standard. Activity as tolerated. SUBJECTIVE: Still nauseous and dizzy with positional change but of less intensity than onset two days ago. OBJECTIVE: ?Posture: Good upright posturing ?Observation: Highly guarded movements, with limited head motions and trunk rotation during gait, transfers and bed mobility ?Mental Status: A and O x 4 ?Vital Signs: Closely monitored by nursing staff BED MOBILITY/TRANSFERS: ?Minimal cueing provided for use of B hands as needed for support,? movement sequence,? AD management,? and posture to reduce fall risk and minimize pain report ?Rolling contact guard assist. ?Supine to sit contact guard assist ?Sit to supine contact guard assist ?Sit to stand minimal assist ?Stand to sit minimal assist GAIT: After L Augie maneuver,? patient felt better and tolerated sitting at edge of bed and standing up frm edeg of bed.? He was able to cover about 5 small steps before needing to sit back down due to symptom exacerbation. Used front-wheeled walker but with very hesitant steps Margoth slowed.? Minimal assist of PT. Nurse Murtaza offered medication for dizziness which patient immediately took. Patient was then assisted back to bed to rest. Balance: ?Static Sitting: Fair ?Dynamic Sitting: Fair ?Static Standing: Fair ?Dynamic Standing: Poor NEURO RE-ED: ?-Gaze stabilization exercises with mild worsening of symptoms: VOR x 1 ? THERA ACT: Patient guided with safe performance of short distance ambulation using the front-wheeled walker requiring contact guard assist and minimal verbal cueing for safe directional changes,? movement transition,? and AD management. ASSESSMENT: Head movement inducedoscillopsia and poural imbalance from mutiple canal involvement: downbeating nystgamus indicating L posterior canalithiasis with L James-Hallpike and R upbeating torsional nystagmus with characteristic of R postreior canalithiasis with R James-Hallpike maneuver. After one L Augie maneuver, patient again was able to sit up and stand up but requested to immediately sit down due to heightened nausea and dysequilibrium. Plan of Care/Treatment Plan Vestibular rehabilitation and neuromuscular re-education to address symptoms of BPPV. 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 [] SNF for continued rehabilitation [] [] Skilled Nursing Care [] [] SNF versus LTC based on ability to participate and progress [] ?TREATMENT CODE/TIME: ?36400 x 30 minutes for 2 units (13:32-14:07).
[2024-08-27] MEDS: Acetaminophen 325 MG TAB PO (17:15)
[2024-08-27 19:21] VITALS: BP 132/62; PULSE 55; RESP 19; TEMP 36.4; O2SAT 94
[2024-08-27] MEDS: Enoxaparin 40 MG/0.4 ML SYR SC (20:03)
[2024-08-27 23:21] VITALS: BP 146/62; PULSE 47; RESP 19; TEMP 36.2; O2SAT 96
[2024-08-28] VITALS (7 sets, daily range): BP systolic 110–163; BP diastolic 51–66; PULSE 51–62; RESP 15–24; TEMP 36.1–36.7; O2SAT 93–98
[2024-08-28 07:12] LABS: ALT 18 U/L (16-63); AST 14 U/L (15-37); Albumin 3.5 g/dL (3.4-5.0); Alkaline Phosphatase 92 U/L (46-116); Anion Gap 13.2 mmol/L (3-11); BUN 26 mg/dL (7-18); Bilirubin, Total 0.8 mg/dL (0.2-1.0); CO2 25.8 mmol/L (21.0-32.0); CREATININE 1.6 mg/dL (0.70-1.30); Calcium 9.6 mg/dL (8.5-10.1); Chloride 107 mmol/L (98-107); Estimated GFR 42.75 (mL/min/1.73m2); Glucose 91 mg/dL (74-106); Magnesium 2.1 mg/dL; Sodium 146 mmol/L (136-145); Total Protein 6.8 g/dL (6.4-8.2)
[2024-08-28] MEDS: Acetaminophen 325 MG TAB PO (08:37)
[2024-08-28] MEDS: Meclizine 12.5 MG TAB PO ×3 (08:38→20:23)
[2024-08-28] MEDS: Allopurinol 300 MG TAB PO (08:57)
[2024-08-28] MEDS: Lisinopril 20 MG TAB 40 MG PO (08:57)
[2024-08-28] MEDS: Aspirin 81 MG CHEW PO (08:57)
[2024-08-28] MEDS: Atorvastatin 40 MG TAB PO (08:57)
[2024-08-28] MEDS: Normal Saline Flush 10 ML SYR IVP ×2 (08:59→20:24)
--- NOTE | 2024-08-28 09:39 | PTTR_ITS ---
PT Notes Visit Reasons: Intractable Vertigo Physical Therapy Inpatient Treatment Note Date: 08/28/2024 Precautions: Fall. Standard. Activity as tolerated. SUBJECTIVE: Feeling better today. Agreeable to trying out hallway walking. Happy about being able to significantly improve with his ability to move/walk. OBJECTIVE: ?Posture: Good upright posturing ?Observation: Highly guarded movements, increasing head motions and trunk rotation during gait, transfers and bed mobility ?Mental Status: A and O x 4 ?Vital Signs: rthostatic hypotension as taken at start of PT session BED MOBILITY/TRANSFERS: ?Minimal cueing provided for use of B hands as needed for support,? movement sequence,? AD management,? and posture to reduce fall risk and minimize pain report ?Supine to sit contact guard assist ?Sit to stand contact guard assist with FWW ?Stand to sit contact guard assist with FWW GAIT: In the AM, 250 feet using FWW with contact guard assist after L Augie maneuver and gaze stabilization exercises with report of less intense dizziness compared to yesterday. In the PM 250 feet after gaze stabilization exercises with little report of dizziness. Head and trunk movements continue to be guarded albeit less intensity. No LOB. Balance: ?Static Sitting: Fair ?Dynamic Sitting: Fair ?Static Standing: Fair ?Dynamic Standing: Poor NEURO RE-ED: ?-Gaze stabilization exercises with mild worsening of symptoms: VOR x 1, VOR x 2, Two target VOR, Translation VOR. Another L Augie was performed this morning. --Patient guided with safe performance of short distance ambulation using the front-wheeled walker requiring stand by assist and minimal verbal cueing for safe directional changes, incrrased head/trunk movemnt/rotation as tolerated,? movement transition,? and AD management. ASSESSMENT: Head movement induced oscillopsia and postural imbalance from multiple canal involvement now significantly diminished. Patient with downbeating nystagmus >1 minute indicating L posterior cupulolithiasis with L James-Hallpike and R upbeating torsional nystagmus <1 minute characteristic of R postreior canalithiasis with R James-Hallpike maneuver. Plan of Care/Treatment Plan Vestibular rehabilitation and neuromuscular re-education to address symptoms of BPPV. 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 [] SNF for continued rehabilitation [] [] Intermediate Care [] [] SNF versus LTC based on ability to participate and progress [] ?TREATMENT CODE/TIME: ?Session 1--01338 x 50 minutes for 3 units (09:39-10:29). Session 2-- 82189 x 31 minutes for 1 units (14:30-15:01).
--- NOTE | 2024-08-28 09:41 | W.PM.PROGNOT ---
Date of Service Date of service: 08/28/24 Time of Service: 09:41 Assessment and Plan Assessment and plan (1) Vertigo: Status: Chronic Assessment and plan: no evidence of stroke with CT of the head and neck and MRI of the brain. continued increased dose of meclizine for symptoms Continue PT for vestibular rehab and right posterior canal canalithaisis Outpatient follow-up with neurology (2) Carotid artery stenosis without cerebral infarction: Status: Chronic Assessment and plan: Oupatient f/u for findings of stable carotid stenosis at 90% on the right and 60% on the left with no intervention recommended by teleneurology at this time. If recurrent neurological symptoms, should consider at least vascular surgery evaluation for the right-sided stenosis, Continue on aspirin for now. (3) Gout: Status: Chronic Assessment and plan: Continue home medicine regimen (4) Hyperlipidemia: Status: Chronic Assessment and plan: Ongoing atorvastatin with baby aspirin. (5) Hypertension: Status: Chronic Assessment and plan: Orthostatics positive this AM with Na 146 and slight increased in Cr at 1.6 and BUN 26- no FATUMA IVF bolus Ongoing outpatient medical therapy and monitor. (6) Orthostasis: Status: Acute Assessment and plan: As above (7) CKD (chronic kidney disease): Status: Chronic Assessment and plan: At/below baseline with creatinine at 1.6 from 1.5 Continue to avoid nephrotoxic drugs, renal dose meds as needed. anticipate discharge to home with no services once medically stable discussed with DR Rocha Subjective Subjective Patient reports: feels better (still c/o dizziness ), tolerating a regular diet, voiding w/o difficulty, flatus, no bowel movement and nausea; denies still having pain, tolerating liquids well (decreased oral fluid intake ), vomiting, shortness of breath or fever Exam Narrative Exam Narrative: Elderly male of stated age w/o acute distress head is atraumatic , nonicteric and non-injected sclera , oral mucosas moist, no JVD , cardiovascular regular rate and rhythm respirations even and unlabored, abdomen non-distended , soft and nontender moves all extremities equally. Neurologic A& O X4, w/o focal deficit ;psychiatric somewhat anxious mood and affect. Objective Last Vital Signs Temp 36.7 C 08/28/24 07:29 Pulse 53 L 08/28/24 07:29 Resp 16 08/28/24 07:29 BP 129/66 08/28/24 07:29 Pulse Ox 98 08/28/24 07:29 Laboratory Results - last 24 hr 08/28/24 05:59 Sodium 146 H Potassium 4.0 Chloride 107 Carbon Dioxide 25.8 Anion Gap 13.2 H BUN 26 H Creatinine 1.6 H Est GFR (CKD-EPI 2020) 42.75 Glucose 91 Calcium 9.6 Magnesium 2.1 Total Bilirubin 0.8 AST 14 L ALT 18 Alkaline Phosphatase 92 Total Protein 6.8 Albumin 3.5 Time Spent with Patient Time Spent with Patient: >50 minutes Time was spent: preparing to see the patient(eg.review tests), obtaining and/or reviewing separately otained hiistory, ordering medications,tests, procedures, referring, communicating with other health acute care nurse practitioner, indepentently interpreting results, counseling the patient and care coordination
[2024-08-28] MEDS: Normal Saline 250 ML IV (10:51)
[2024-08-28] MEDS: Polyethylene Glycol 3350 17 GM PACKET PO (11:25)
[2024-08-28] MEDS: Docusate Sodium 100 MG CAP PO ×2 (11:25→20:23)
--- NOTE | 2024-08-28 14:28 | PDOC.CMPRO ---
Date of service: 08/28/24 Time of Service: 14:29 Care Management Progress Note Progress Note Text Progress Note Text: Serafin was sitting up in the chair when CM met with him today. He was very pleasant and open. He stated that he feels better today than yesterday, and was actually able to walk the loop in the hallway, which was a very big improvement. He is hoping to go home tomorrow. Serafin's , Chloe, came in the room as CM was leaving. She is eager for Serafin to go home tomorrow, and denies that she has any concerns. Discharge Potential Discharge Needs: PCP F/U Appt and Other (neuro f/u) Anticipated Barriers to Discharge: None Identified Patient/Family Education Needs: Review discharge instructions, discuss Ask Me Three Transportation: Private vehicle (Serafin's brother in law will transport him home.) Plan: Anticipate that Serafin will be discharged home tomorrow with no new services. He will have an outpatient PT referral. Serafin will f/u with his PCP and will be referred to outpatient neurology. He will transport home via private vehicle. CM will continue to follow. Social Determinants of Health Screening Social Determinants of Health last assessed: 08/28/24 Will the Patient Participate in the Screening?: Yes Do you worry about having a steady place to live?: no Problems where you live: no known problems In the past 12 months, have you had to go without electric, gas, oil or water in your home?: no Have you or anyone in your house had to go without enough food to eat?: no Has lack of transportation kept you from medical appointments or from doing things needed for daily living?: no Has anyone in your life made you feel unsafe or unsupported?: no How hard is it for you to pay for the very basics like food, housing, medical care, and heating? Would you say it is:: Not hard at all Do you want help finding or keeping work or a job?: I do not need or want help If for any reason you need help with day-to-day activities such as bathing, preparing meals, shopping, managing finances, etc., do you get the help you need?: I don?t need any help How often do you feel lonely or isolated from those around you?: Never Do you speak a language other than Romansh at home?: No Does the patient want assistance with any of the above?: No
[2024-08-28] MEDS: Enoxaparin 40 MG/0.4 ML SYR SC (20:23)
[2024-08-29 03:01] VITALS: BP 130/53; PULSE 56; RESP 19; TEMP 36.2; O2SAT 97
[2024-08-29 08:11] VITALS: BP 143/64; PULSE 59; RESP 24; TEMP 36; O2SAT 96
[2024-08-29] MEDS: Atorvastatin 40 MG TAB PO (08:25)
[2024-08-29] MEDS: dilTIAZem CD 120 MG CAPCR 240 MG PO (08:25)
[2024-08-29] MEDS: Allopurinol 300 MG TAB PO (08:25)
[2024-08-29] MEDS: Normal Saline Flush 10 ML SYR IVP (08:26)
[2024-08-29] MEDS: Meclizine 12.5 MG TAB PO (08:26)
[2024-08-29] MEDS: Docusate Sodium 100 MG CAP PO (08:26)
[2024-08-29] MEDS: Lisinopril 20 MG TAB 40 MG PO (08:26)
[2024-08-29] MEDS: Aspirin 81 MG CHEW PO (08:27)
[2024-08-29 08:59] VITALS: BP 109/60; BP 138/58; BP 153/62; PULSE 68; PULSE 76
--- NOTE | 2024-08-29 09:22 | W.PM.DS.N ---
Date of service: 08/29/24 Time of Service: 09:22 DS: Diagnosis Discharge Diagnosis (1) Vertigo: Status: Chronic (2) Carotid artery stenosis without cerebral infarction: Status: Chronic (3) Gout: Status: Chronic (4) Hyperlipidemia: Status: Chronic (5) Hypertension: Status: Chronic (6) Orthostasis: Status: Acute (7) CKD (chronic kidney disease): Status: Chronic Discharge Plan Disposition Patient Disposition: Home Condition: Improving Discharge Details Reason For Visit: Intractable Vertigo Admit Date/Time: 08/26/24 19:30 Admit Provider: Jeremy Sun Attending Provider: Jeremy Sun Primary Care Provider: Jace Lott [facility] Course Hospital Course: This 84-year-old male patient with history of hypertension hyperlipidemia recent admission for peripheral vertigo wtih history of acute labyrinthitis imrpoving with exercises presented to the ED on 08/26/24 for evaluation of hematuria, dizziness starting 2 days prior to presentation and acute nausea and vomiting. Workup in the ED was negative for acute finding on head CT and head and neck CTA except for ongoing significant atherosclerotic findings with an occluded the right internal carotid artery with reconstitution of flow at the level the supraclinoid right ICA, MRI was negative for acute findings,blood work was unremarkable, EKG was nonischemic with sinus bradycardia with a bifascicular block. Tele neuro at [facility] [place] concluded that stroke evaluation was negative but suggested probable ongoing peripheral vertigo probable recurrent labyrinthitis or labyrinth dysfunction. Due to the persistent symptoms, the patient was admitted to the hospitalist service for further management with PT and OT consults for labyrinth exercises and evaluation for safety at home. The patient was positive for orhtostasis which improved s/p IVF. The patient's symptoms improved with adjustment of his meclizine dosing. On the day of discharge the patient was hemodynamically stable with resolution of symptoms. The patient will have to follow-up with his PCP and neurology within 7 days of discharge and will continue outpatient physical therapy for re-evaluation and continued vestibular rehab for R posterior canal canalithaisis.. Recommendations for PCP on discharge: -F/u on outpatient neurology referral -F/u on renal function -Adjustment of meclizine dosing -Discussion re: neuro-vascular referral for right ICA occlusion and significant atherosclerotic Discussed with Dr. Rocha Home Meds and New Rx's Prescriptions: New meclizine 12.5 mg Tablet 12.5 mg PO TID Qty: 20 0RF Rx Instructions: Take for vertigo symptoms ( dizziness) or nauseous, can take 3 times a day for 3 days then only if needed Continued allopurinol 300 mg tablet 300 mg PO DAILY Qty: 90 3RF diltiazem HCl 240 mg capsule,extended release 24 hr 240 mg PO DAILY Qty: 90 3RF lisinopril 40 mg tablet 40 mg PO DAILY Qty: 90 3RF atorvastatin 40 mg tablet 40 mg PO DAILY Qty: 90 0RF aspirin 81 mg capsule 81 mg PO DAILY Qty: 90 0RF Discharge Instructions Instructions: Vertigo (a type of dizziness) Additional Instructions: You were seen in the emergency department for your dizziness. Your MRI showed no sign of any strokes. Please follow-up with your primary care provider as you do have some plaques of cholesterol buildup in your carotid arteries. If you begin vomiting and does not stop or if you develop headache please return to the emergency department. The neurologist made no recommendations to change any of your medications. You may try this medication to treat your dizziness. ( as per Dr. Benites's ED notes) Referrals: Jace Lott DO [Primary Care Provider] - (Follow-up with PCP within 7 days of discharge) Jaleesa Chi MD [ [facility] STAFF PHYSICIAN] - (Follow-up within a week of discharge please) Abdiel Shannon,InPatient [OTHER] - (Outpatient physical therapy referral for:re-evaluation and continued vestibular rehab for R posterior canal canalithaisis.) Activity:: Activity as Tolerated Equipment/Supplies:: Walker Diet:: As Tolerated Discharge Orders Discharge Orders: Discharge Order (Routine); Ordered 08/29/24 Ordered By: Sailaja Warner DS: Summary Time Spent with Patient providing and/or coordinating discharge services: Greater than 30 minutes Status at Discharge Functional status at discharge: uses cane/walker Overall status at discharge: patient is progressing back to baseline Mental Status: mental status grossly normal Speech and Movement: speech and movement normal Mood: congruent mood Affect: normal affect Quality:SDOH Health Related Social Needs: No Data to Display Exam Narrative Exam Narrative: Elderly male of stated age w/o acute distress improving vertigo and able to ambulate neurologic A& O X4, w/o focal deficit ; , nonicteric and non-injected sclera , oral mucosas moist, no JVD , cardiovascular regular rate and rhythm respirations even and unlabored, abdomen non-distended , soft and nontender moves all extremities equally. psychiatric somewhat anxious mood and affect. Psych Mental Status: mental status grossly normal Speech and Movement: speech and movement normal Mood: congruent mood Affect: normal affect DS: Data Vitals/I&O Vitals and I&O: Vital Signs Temperature 36 C L 08/29/24 08:11 Temperature Source Temporal Artery Scan 08/29/24 08:11 Pulse 68 08/29/24 08:59 Pulse Rhythm Regular 08/26/24 21:13 Pulse 49 L 08/26/24 20:50 Respiratory Rate 24 08/29/24 08:11 Respiratory Effort Normal, Non-Labored 08/26/24 21:13 Respiratory Depth Normal 08/26/24 21:13 Respiratory Pattern Normal 08/26/24 21:13 Blood Pressure 153/62 H 08/29/24 08:59 Blood Pressure Mean 97 08/26/24 20:46 Blood Pressure Position Supine 08/26/24 12:54 Pulse Oximetry 96 08/29/24 08:11 Oxygen Delivery Method Room Air 08/29/24 08:11 Oxygen Flow Rate 0 08/29/24 08:11 Pain Level 0 08/29/24 03:01 Comment Notifying RN 08/29/24 08:11 Intake & Output 08/28/24 08/28/24 08/29/24 11:59 23:59 11:59 Intake Total 250 / 350 100 / 350 5 / 5 Output Total 200 / 750 550 / 750 225 / 225 Balance 50 / -400 -450 / -400 -220 / -220 Weight 94.5 kg 94.5 kg Intake: IV 250 / 250 5 / 5 Oral 100 / 100 Output: Urine 200 / 750 550 / 750 225 / 225 Other: Urine Color Yellow Yellow Straw Urine Appearance Clear Clear Clear Urine Odor Normal Normal Normal PFSH All Active Problems (Updated 08/28/24 @ 11:16 by Sailaja Warner APRN) Orthostasis (Acute) Carotid artery stenosis without cerebral infarction (Chronic) Vertigo (Chronic 03/28/14) CKD (chronic kidney disease) (Chronic) Carotid artery plaque (Acute) Dizziness (Acute) Diverticula of colon (Acute) Coronary artery calcification seen on CAT scan (Acute) White coat syndrome with diagnosis of hypertension (Acute) Kidney stones, calcium oxalate (Acute) Obesity, Class II, 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 currently on weight watcher's diet and has lost almost 40 lb in the last year intentionally b. denies any supplements Heart murmur (Acute) I/ Systolic Heart Murmur- First noted 05/04 Per pt. states he has had no issues regarding this, F/U up with PCP Dr. Lott BPH (benign prostatic hyperplasia) (Chronic) Probable Metabolic syndrome (Chronic) a. high triglycerides b. low HDL Gout (Chronic) Hyperlipidemia (Chronic) Hypertension (Chronic) Chronic kidney insufficiency (Chronic) a. Since at least 1998 b. baseline creatinine 1.9 Medical History Calculus of proximal right ureter Hx of fracture of ankle R ankle (mert placed) Syncope (04/15/14) Family History Mother , of hemorrhage but unknown No problems noted. Father , of heart issues No problems noted. Social History Smoking/Tobacco Use Status: Never Second Hand Exposure: No Smoking risk assessment performed?: Yes Alcohol Intake: current Alcohol Intake frequency: holidays/special occasions only Alcohol type: beer and hard liquor Drug use: Never Substance use type: does not use Adopted: No Caregiver/Support person: No Foster care: No Household members: spouse Housing: house Number of Children: 1 number of grandchildren: 1 Communication Needs: None Education Level: college Details: Associate's Degree Do you need help understanding health information?: Rarely current occupation: Retired Pets and animals: No Sexually active: Yes Do you think of yourself as: straight/heterosexual Current gender identity: male What is your relationship status?: How often do you talk on the phone with friends or family?: twice per week How often do you get together with friends or relatives?: three or more times per week Do you belong to any clubs or organized social groups?: no Panel score (0-1 are the most socially isolated patients): 2 What type of physical activity do you participate in: walking Duration: < 15 minutes/day Frequency: 5-6 times per week Beatriz/Roman Catholic: Baptist Special beatriz needs: No Seatbelt use: always Helmet use: Yes Helmet use: always Drive intox or ride w/intox racecar driver: No Working smoke detector in home: Yes Carbon monox detector in home: Yes Do you feel safe at home: Yes Do you feel safe in your relationship?: Yes Time Spent with Patient Time Spent with Patient: 70-84 minutes4 Time was spent: preparing to see the patient(eg.review tests), obtaining and/or reviewing separately otained hiistory, ordering medications,tests, procedures, referring, communicating with other health residential caregiver, indepentently interpreting results, counseling the patient and care coordination
--- NOTE | 2024-08-29 09:52 | PT.INTREAT ---
PT Notes Visit Reasons: Intractable Vertigo Physical Therapy Inpatient Treatment Note Date: 08/29/2024 Precautions: Fall. Standard. Activity as tolerated. SUBJECTIVE: Looking forward to walking. Dizziness almost resolved. remains mildly orthoststic per JOHN Menard. OBJECTIVE: ?Posture: Good upright posturing ?Observation: Highly guarded movements, increasing head motions and trunk rotation during gait, transfers and bed mobility ?Mental Status: A and O x 4 ?Vital Signs: BED MOBILITY/TRANSFERS: ?Minimal cueing provided for use of B hands as needed for support,? movement sequence,? AD management,? and posture to reduce fall risk and minimize pain report ?Supine to sit stand by assist ?Sit to stand stand by assist with FWW ?Stand to sit stand by assist with FWW GAIT: 350 feet using FWW with contact guard assist after L Augie maneuver and gaze stabilization exercises with report ofdecreased oscillopsia and instability compared to yesterday. Gait speed remains slower than his prior level but now with increased head and neck movements. Balance: ?Static Sitting: Good ?Dynamic Sitting: Fair ?Static Standing: Good ?Dynamic Standing: Fair NEURO RE-ED: ?-Gaze stabilization exercises with mild worsening of symptoms: VOR x 1, VOR x 2, Two target VOR, Translation VOR. Another L Augie was performed this morning. --Patient guided with safe performance of short distance ambulation using the front-wheeled walker requiring stand by assist and minimal verbal cueing for safe directional changes, incrrased head/trunk movemnt/rotation as tolerated,? movement transition,? and AD management. ASSESSMENT: Head movement induced oscillopsia and postural imbalance significantly reduced from multiple canal involvement now significantly diminished. Patient with downbeating nystagmus >1 minute indicating L posterior cupulolithiasis with L Vernon-Hallpike and R upbeating torsional nystagmus <1 minute characteristic of R postreior canalithiasis with R James-Hallpike maneuver. Plan of Care/Treatment Plan Vestibular rehabilitation and neuromuscular re-education to address symptoms of BPPV. 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 [] SNF for continued rehabilitation [] [] Supervisor Inspection Department Care [] [] SNF versus LTC based on ability to participate and progress [] TREATMENT CODE/TIME: 82029 x 45 minutes for 3 units (9:52-10:37).
[2024-08-29 10:00] VITALS: TEMP 36.2
[2024-08-29 11:38] VITALS: BP 144/67; PULSE 70; RESP 20; TEMP 36.3; O2SAT 99
--- NOTE | 2024-08-29 14:55 | PDOC.CMDIS ---
Date of service: 08/29/24 Time of Service: 14:55 LACE Index Scoring Tool Questions: Length of Stay (in days): 3 Was the patient admitted via the E.D.?: Yes Comorbidities: Liver or Renal Disease E.D. Visits: 2 Answers: Total Score: 13 Risk of Readmission: High Risk Care Management Discharge Plan Reason for Hospitalization: intractable vertigo Discharge Plan: Serafin was discharged home earlier today with no new services. Referrals were sent to neurology, PT and Serafin's PCP. Serafin was driven home by his brother in law and will continue per his prescribed plan of care. Patient/Family Education Needs: Review of discharge instructions, activity, limitations and discuss Ask me 3. SDOH Health Related Social Needs: No Data to Display
== END 2024-08-29 12:30 | disposition home or self-care (01) | DRG 149 ==
LOC: ER 19:12 → MS 08-27 06:50
PROVIDERS: Emergency Medicine; Admitting Provider Family Medicine; Emergency Provider Emergency Medicine; PCP Family Medicine; Responsible Provider Nurse Practitioner Acute Care; Visit Provider Family Medicine
DX: H83.09 Labyrinthitis, unspecified ear (principal); I45.2 Bifascicular block; I65.23 Occlusion and stenosis of bilateral carotid arteries; I95.1 Orthostatic hypotension; N18.32 Chronic kidney disease, stage 3b; R31.9 Hematuria, unspecified; E78.5 Hyperlipidemia, unspecified; I12.9 Hypertensive chronic kidney disease with stage 1 through stage 4 chronic kidney disease, or unspecified chronic kidney disease; R26.2 Difficulty in walking, not elsewhere classified; R11.2 Nausea with vomiting, unspecified; I25.10 Atherosclerotic heart disease of native coronary artery without angina pectoris; N40.0 Benign prostatic hyperplasia without lower urinary tract symptoms; M10.9 Gout, unspecified; Z79.899 Other long term (current) drug therapy
CPT/HCPCS: 00123; 36415; 70496; 70498; 80053; 85027; 86850; 86900; 86901; 87637; 93005; 96361; 96372; 96374; 97112; 97162; 99285; J1650; 70551; 71045; 81003; 81015; 83735; 84443; 84484; 85025; 93010; 99223; 99233; 99239; J2250; J3490

== ENCOUNTER 2024-12-11 02:44 | Outpatient (CLI) | payer MEDICARE, SELFPAY ==
[2024-12-11 09:21] LABS: Anion Gap 9.4 mmol/L (3-11); BUN 26 mg/dL (7-18); CO2 27.6 mmol/L (21.0-32.0); Calcium 10.0 mg/dL (8.5-10.1); Chloride 103 mmol/L (98-107); Estimated GFR 39.75 (mL/min/1.73m2); Glucose 104 mg/dL (74-106); Potassium 4.6 mmol/L (3.5-5.1); Sodium 140 mmol/L (136-145)
== END 2024-12-11 02:45 | disposition home or self-care (01) ==
LOC: LBO 02:44
PROVIDERS: PCP Family Medicine; Visit Provider Family Medicine
DX: N18.9 Chronic kidney disease, unspecified (principal)
CPT/HCPCS: 36415; 80048

== ENCOUNTER 2025-01-13 02:30 | Outpatient (CLI) | payer MEDICARE, SELFPAY ==
--- NOTE | 2025-01-13 06:45 | DI.RAD_ITS ---
Exam(s) XR ABDOMEN FLAT PLATE EXAM: XR ABDOMEN FLAT PLATE CLINICAL HISTORY: monitoring kidney stones,bph,n40.0. TECHNIQUE: 2D digital imaging was performed. COMPARISON: CR XR ABDOMEN FLAT PLATE from 01/15/2024 FINDINGS: AP supine view the abdomen-pelvis. Previously described 3 radiopaque calculi in the lower half of the right kidney are unchanged in size and position. There is another smaller tiny calculus noted in the lower half of the right kidney. 5 mm calculus in the upper pole region of the opposite-left kidney is noted as are smaller calculi in the lower pole the left kidney. One of these appears to have migrated to almost the midpole level of the left kidney. There are no obvious radiopaque calculi seen along the course of the ureters nor in the region of the urinary bladder. The bowel gas pattern remains nonspecific. IMPRESSION: As above. DATA REPOSITORY: RADIATION DOSE DELIVERED:
== END 2025-01-13 02:50 ==
LOC: DI 02:30
PROVIDERS: PCP Family Medicine; Visit Provider Nurse Practitioner Gerontology
DX: N40.0 Benign prostatic hyperplasia without lower urinary tract symptoms (principal); N20.0 Calculus of kidney
CPT/HCPCS: 74018

== ENCOUNTER → 2025-03-12 11:01 | Outpatient (BNVA) | payer MEDICARE, SELFPAY | PROVIDERS: PCP Family Medicine; Referring Provider Family Medicine; Visit Provider Nurse Practitioner Gerontology | DX: N40.0 Benign prostatic hyperplasia without lower urinary tract symptoms (principal); N20.0 Calculus of kidney | CPT/HCPCS: 99213 ==